=== PATIENT | male | born 1935 | race Caucasian/White ===

== ENCOUNTER 2017-06-18 01:58 | Inpatient (IN) ==
--- NOTE | 2017-06-18 03:50 | Internal Med History&Physical ---
Date of Encounter: 06/18/17 Time of Encounter: 03:49 Assessment and Plan (1) GI bleed Current visit: Yes Status: Acute history of severe sigmoid and left colon diverticulosis with prior GI bleed about a year ago on plavix, presents with symptomatic volume loss from acute significant GI bleed with Hb drop from baseline of 13.8 on 05/26/17 to 12.4 today and received emergent 1 unit of PRBC transfusion at the referring hospital due to his symptoms, will hold plavix and avoid all antiplatelets and anticoagulants, will complete current transfusion and repeat CBC, cycle CBC Q6 post transfusion, maintain 2 large bore IV lines at all times, Dr Walker has been consulted to weigh in should conservative measures fail, monitor stool count and amount, GI bleeding precautions, bed rest, monitor vitals, cycle lactate, monitor symptoms, admit to ICU for closer monitoring Qualifiers: GI bleed type/associated pathology: diverticulosis Qualified Code(s): K57.91 - Diverticulosis of intestine, part unspecified, without perforation or abscess with bleeding (2) Hyperglycemia due to type 2 diabetes mellitus Current visit: Yes Status: Acute History of type II diabetes mellitus with recent A1c of 9.3% in 04/2017, presented with hyperglycemia with the glucose of >300, on long-term insulin at home, currently NPO, FS Q6H, with sliding scale insulin for coverage, hold oral hypoglycemic Qualifiers: Diabetes mellitus director electrical engineering insulin use: with director electrical engineering use Qualified Code( s): E11.65 - Type 2 diabetes mellitus with hyperglycemia; Z79.4 - asp web developer ( current) use of insulin; Z79.4 - prison (current) use of insulin; Z79.4 - asp web developer (current) use of insulin; Z79.4 - asp web developer (current) use of insulin (3) Lactic acidosis Current visit: Yes Status: Acute lactate of 3.0, in the setting of GI bleed and hypotension, likely from poor tissue perfusion, will cycle as we resuscitate (4) JAMAL (acute kidney injury) Current visit: Yes Status: Acute His baseline creatinine is 1.3, cannot come same with the creatinine of 2.26 distracting of significant G.I. bleed with hypotension, etiology of JAMAL in this scenario is likely pre-renal, will volume resuscitate, avoid nephrotoxins, renally dose all medications and follow BMP (5) Diabetes Current visit: Yes Status: Chronic refer to hyperglycemia section Qualifiers: Diabetes mellitus type: type 2 Diabetes mellitus complication status: with circulatory complication Diabetes mellitus complication detail: with other circulatory complications Diabetes mellitus director electrical engineering insulin use: with senior care use Qualified Code(s): E11.59 - Type 2 diabetes mellitus with other circulatory complications; Z79.4 - prison (current) use of insulin (6) Diverticulosis Current visit: Yes Status: Chronic Known history of diverticulosis in the sigmoid and left colon with a prior GI bleed that self resolved, refer to GI bleed section for further assessment and plan Qualifiers: Diverticulosis site: diverticulosis of large intestine Diverticulosis bleeding: diverticulosis with bleeding Qualified Code(s): K57.31 - Diverticulosis of large intestine without perforation or abscess with bleeding (7) Chronic kidney disease (CKD) Current visit: Yes Status: Chronic History of PKD stage III, now in JAMAL, further assessment and plan per JAMAL section Qualifiers: Chronic kidney disease stage: stage 3 (moderate) Qualified Code(s): N18.3 - Chronic kidney disease, stage 3 (moderate) (8) Hypertension Current visit: Yes Status: Chronic was initially hypotensive but BP is now WNL, will hold off antihypertensives until BP stabilizes, Qualifiers: Hypertension type: essential hypertension Qualified Code(s): I10 - Essential (primary) hypertension Internal Medicine - H&P: HPI Chief complaint: bleeding per rectum Admitted From: Hospital to Hospital Transfer Plans for Post Hospital Care: Home History of present illness: Mr. Balderrama is a 82 year old male with a history of severe diverticulosis in the sigmoid and left colon with self limiting GI bleed in July 2016/CABG3 ( NOLASCO to LAD, SVG to D1, SVG to RI) and LAD endarterectomy done in July 2015 on plavix at home was transferred here form [facility] after he had presented there with recurrent bloody bowel movements. He was reportedly well in his usual state of health until after 8pm last night when he began to have spontaneous moderate to large amounts of bloody bowel movements. It was initially red but subsequently became dark in color. He reports >4 such episodes since onset. He was seen in the ER of [place] via EMS and was reportedly hypotensive-88/42mmHg, tachycardic>100, diaphoretic and was lightheaded. He was noted to have lactic acidosis of 3.0 with a drop in hemoglobin from 13.8 to 12.4. He was transferred here on 1 unit of PRBC transfusion en route for higher level or care. He denies chest pain, abdominal pain, fever, chills, nausea or vomiting. Past Med Surg Social Fam HX - Past Medical History Source: patient, old records reviewed Medical history: coronary artery disease, diabetes, GI bleed, hypertension, myocardial infarction Psychiatric history: no psych history - Past Surgical History Surgical History: angioplasty/stent (multiple ), cholecystectomy, coronary bypass (CABG) - Social History Smoking Status: Former smoker Smokeless Tobacco Status: No Alcohol use: none Drug use: none - Additional Family History Additional family history: mother had HTN, brother had DM, no family history of cancer or GI problems to his knowledge Internal Medicine - H&P: Meds GlipiZIDE XL (24 HR) [Glucotrol XL] 5 mg PO BID 08/16/15 [History] Insulin DETEMIR [Levemir] 15 unit SQ BID 08/16/15 [History] Promethazine [Phenergan] 25 mg PO BID PRN 08/16/15 [History] Acetaminophen [Tylenol] 650 mg PO Q6HR PRN #30 tablet 08/09/16 [Rx] Oxycodone HCl/Acetaminophen [Percocet 10-325 mg Tablet] 1 tab PO Q6H PRN #20 tablet 08/09/16 [Rx] Zolpidem [Ambien] 5 mg PO HS PRN #10 tablet 08/09/16 [Rx] hydroCHLOROthiazide [Hydrochlorothiazide] 12.5 mg PO DAILY #30 tablet 08/09/16 [ Rx] Clopidogrel [Plavix] 75 mg PO DAILY #30 tab 05/04/17 [Rx] Doxazosin Mesylate [Cardura] 2 mg PO HS #60 tablet 05/26/17 [Rx] Isosorbide MONOnitrate (24 HR) [Imdur] 30 mg PO DAILY #30 tab.er.24h 05/26/17 [ Rx] Nitroglycerin [Nitrostat] 0.4 mg SL Q5M #1 vial 05/26/17 [Rx] Potassium Chloride 10 meq PO DAILY #30 tab.er.prt 05/26/17 [Rx] Lisinopril [Zestril] 20 mg PO DAILY 06/18/17 [History] Metoprolol [Lopressor] 50 mg PO BID 06/18/17 [History] Ranitidine HCl [Heartburn Relief] 150 mg PO BID 06/18/17 [History] 3 Allergy/AdvReac Type Severity Reaction Status Date / Time morphine Allergy See Verified 05/03/17 07:37 Comments All Systems PM: A 10-system review of systems was performed and is negative for pertinent findings except as documented above in the HPI. - Constitutional Vitals: Vital Signs Temperature 97.6 F 06/18/17 00:44 Pulse Rate 111 06/18/17 00:44 Respiratory Rate 16 06/18/17 00:44 Blood Pressure 140/82 06/18/17 00:44 O2 Sat by Pulse Oximetry 96 06/18/17 00:44 GENERAL: Elderly male, lying in bed, Alert, not in obvious pain or distress HEENT: NC/AT, EOMI, PERRLA, anicteric sclera, normal conjunctiva, supple, clear nares, moist mucous membranes, RESP: Lungs are clear to auscultation bilaterally, with good AE, no crackles or wheeze CARDIO: Normal heart sounds with RRR, no murmurs, no JVD, no ankle edema GI: Soft, full, no tenderness, no organomegaly felt, normal bowel sounds heard MUSCULOSKELETAL: Grossly normal movements bilaterally, no deformities noted, NEUROLOGIC: CN 2-12 intact grossly. No gross motor/sensory deficit appreciated, PSYCHIATRY: AAO x 3. Mood is fair SKIN: a few areas of ecchymosis Internal Med - H&P Results - Diagnostic Studies CT scan - abdomen Status: image reviewed by me - Attending Attestation Patient has critical illness, with multiple vital organ impairment; cardiovascular, renal and endocrine with a high probability of imminent or life threatening deterioration in the patient's condition. I performed critical intervention, involving high complexity decision making to assess, manipulate, and support vital organ system failure; and I spent about 35 minutes engaged in work directly related to the patient's care at his immediate bedside and also on the unit, part of this time was also spent counseling patient, coordinating care, that time was spent at the immediate bedside or elsewhere on the floor or unit. Critical care time: 35 minutes
[2017-06-18] MEDS ORDERED: Naloxone 0.4 MG/ML INJ IVP PRN (04:08)
[2017-06-18] MEDS ORDERED: Dextrose Gel 15 GM PO PRN ×2 (04:10)
[2017-06-18] MEDS ORDERED: *HR* Dextrose 50 % in Water (Syg) 50 ML SYRINGE IVP PRN (04:10)
[2017-06-18] MEDS ORDERED: D5% in Water 1,000 ML IVC PRN (04:10)
[2017-06-18] MEDS ORDERED: *HR* OxyCODONE/APAP 10/325 TABLET PO PRN (05:15)
[2017-06-18] MEDS: Insulin LISPRO 300 UNITS/3 ML VIAL SQ SCH ×2 (05:29→12:22)
[2017-06-18 05:38] LABS: Hemoglobin 10.7 g/dL (12.9-16.9); Immature Platelets 6.9 % (1.1-6.1); Mean Corpuscular HGB Conc 33.4 g/dL (31.6-35.5); Mean Corpuscular Hemoglobin 29.4 pg (28.0-33.3); Mean Corpuscular Volume 87.9 fL (83.0-100.0); Mean Platelet Volume 11.1 fL (9.4-12.4); Red Blood Count 3.64 M/mcL (4.19-5.50); Red Cell Distribution Width 13.4 % (11.5-14.5)
[2017-06-18 05:53] LABS: Calcium 7.9 mg/dL (8.6-10.8); Magnesium 1.6 mg/dL (1.6-2.6); Phosphorous 3.6 mg/dL (2.3-4.7); Potassium 4.1 mEq/L (3.5-4.5)
[2017-06-18] MEDS ORDERED: Ondansetron 4 MG/2 ML VIAL IVP ONE (07:56)
[2017-06-18] MEDS ORDERED: Ondansetron 4 MG/2 ML VIAL IVP PRN (07:56)
[2017-06-18] MEDS ORDERED: MetroNIDAZOLE 500 MG/100 ML 500 MG/100 ML BAG IVPB SCH (09:00)
[2017-06-18] MEDS ORDERED: Pantoprazole 40 MG VIAL IVP SCH ×2 (09:00→18:00)
[2017-06-18] MEDS ORDERED: Piperacillin/Tazobactam 3.375 GM in D5% in Water (Mini-Bag+) 100 ML IVPB SCH (09:00)
[2017-06-18] MEDS ORDERED: Insulin DETEMIR 100 UNIT/ML X5UNITS SQ ONE (12:07)
[2017-06-18] MEDS ORDERED: *HR* Midazolam HCl 5 MG/5 ML VIAL IVP ONE (13:10)
[2017-06-18] MEDS ORDERED: *HR* FentaNYL (PF) 100 MCG/2 ML VIAL ONE (13:10)
[2017-06-18] MEDS ORDERED: Simethicone 40 MG/0.6 ML MLS IR ONE (13:20)
[2017-06-18] MEDS ORDERED: *HR* Midazolam HCl 5 MG/5 ML VIAL IVP PRN (13:20)
[2017-06-18] MEDS ORDERED: *HR* FentaNYL (PF) 100 MCG/2 ML VIAL IVP PRN (13:20)
--- NOTE | 2017-06-18 13:22 | Pre-Sedation Evaluation ---
Pre-sedation evaluation - Pre-sedation checklist Procedure: HEART CATHETERIZATION Recent Vitals: Last Vital Signs Temp 98 F 06/18/17 12:00 Pulse 94 06/18/17 12:00 Resp 16 06/18/17 12:00 BP 120/74 06/18/17 12:00 Pulse Ox 95 06/18/17 12:00 H&P (including ROS) documented in medical record: Yes Previous reaction to sedatives/anesthetics: No Dietary Status: NPO after Midnight Airway Assessment: Patient can open mouth completely, TMJ function normal, Micrognathia (under-bite, receding chin) absent, Neck with adequate range of motion Dentition: No loose teeth or bridges ASA Classification *see protocol: CLASS III-Severe systemic disease Plan of Care: Pt appropriate candidate for procedure/moderate/conscious sedation , Risks/benefits of procedure/sedation discussed w/ patient/family, If not NPO; Risk of intake outweiged by necessity to perform procedure
[2017-06-18] MEDS ORDERED: 0.9 % Sodium Chloride 1,000 ML IVC SCH (13:30)
[2017-06-18 13:56] LABS: Hematocrit 30.5 % (37.5-50.1); Hemoglobin 9.9 g/dL (12.9-16.9)
[2017-06-18] MEDS: MetroNIDAZOLE 500 MG/100 ML 500 MG/100 ML BAG IVPB SCH (16:50)
[2017-06-18] MEDS: Piperacillin/Tazobactam 3.375 GM in D5% in Water (Mini-Bag+) 100 ML IVPB SCH (16:50)
[2017-06-18] MEDS ORDERED: *HR* Morphine 2 MG/ML SYRINGE IVP PRN (16:57)
--- NOTE | 2017-06-18 17:00 | General Surgery Consult Note ---
Date of Encounter: 06/18/17 Time of Encounter: 07:45 History of Present Illness Consult date: 06/18/17 Requesting physician: Behzad Weems History of present illness: General Surgery - This is a delayed consultation for GI hemorrhage / anemia 82-year-old male transferred from [facility] after presenting there with new onset rectal bleeding. The patient has a known history of diverticulosis/ diverticulitis. He indicates his last GI bleed was approximately 4 years ago. The patient apparently presented to [facility] after several bloody bowel movements with dizziness and near syncope. The stool was described as dark. There was no associated rectal pain or abdominal pain with this new onset bleeding. The patient indicates the bleeding initiated approximately 0800 on . No fevers, chills, nausea, or vomiting. Past medical history: Diverticulosis, previous history of diverticulitis, diabetes, CKD, possible TIA/stroke CAD with prior MA s/p CABG; coronary stents; cholecystectomy Allergies: Morphine Medications: Glipizide 5 mg by mouth twice a day Levemir 15 units subcutaneous twice a day Promethazine 25 mg by mouth twice a day when necessary - it is not certain that the patient is taking this med Acetaminophen 650 mg by mouth every 6 hours when necessary Zolpidem 5 mg by mouth daily at bedtime as needed for sleep Hydrochlorothiazide 12.5 mg by mouth daily Clopidogrel 75 mg by mouth daily Cardura 2 mg by mouth daily at bedtime Isosorbide mononitrate 30 mg by mouth daily Nitroglycerin 0.4 mg sublingually every 5 minutes as needed for chest pain Potassium 10 mEq by mouth daily Lisinopril to 20 mg by mouth daily Metoprolol 50 mg by mouth twice a day Ranitidine 150 mg by mouth twice a day Social history: Patient is a former smoker, he indicates he quit several years ago; patient denies any alcohol or illicit drug use. Family history: Mother with hypertension; brother diabetic His examination: Age-appropriate male resting comfortably in his ICU bed. He was sleeping but easily aroused The patient has been afebrile since his transfer, 97.7; pulse 96 but as high as 104; respirations 16 and unlabored, blood pressure 122/65. The patient is 1.7 m tall, 87.5 kg, BMI 30.2 Skin: Warm, no obvious jaundice Lungs: Clear to auscultation, no obvious abdominal pain with deep inspiration Cardiac: Regular rate Abdomen: Soft, nontender; no obvious intra-abdominal masses. No rebound. Hypoactive bowel sounds. Extremities: No obvious clubbing, cyanosis, or edema. Laboratories: H&H on 05/26/17, 13.1 and 38.9; H&H and presentation to [facility] , 06/18/1712.4/36.8. Since transfer to [facility], H&H currently 9.9/30.5. PT/INR 12.6/1.2 Electrolytes within acceptable range however BUN 38, creatinine 2.26 - markedly elevated over what appears to be baseline. This may be reflective of The presence blood in the intestinal tract. CT abdomen/pelvis - completed at [facility] prior to the transfer to [facility]; the lung bases, calcified granuloma right medial right base; Collapsed bladder with appearance of thickened wall but the evaluation is limited by the collapsed bladder; prostate is enlarged; extensive colonic diverticulosis with minimal stranding pericolic fat involving the proximal sigmoid insistent with either scarring due to previous diverticulitis versus mild acute uncomplicated diverticulitis. The urinary bladder is also unremarkable with irregular thickening possibly related to chronic outlet obstruction. Impression: 82-year-old male with new onset rectal bleeding. This is been accompanied by some hemodynamic instability (patient complaining of dizziness and "almost passing out"). No recorded hemodynamic instability since his transfer to [facility]. Hemoglobin has fallen from hurting 0.1-9.9. While this is likely a diverticular bleed the bowel movements and described as dark melenic. The possibility of upper GI source and not be excluded. I discussed this with the patient and have recommended a EGD which can be easily completed at bedside since the patient is in ICU. The patient has radiologic evidence of acute diverticulitis but review of the admitting orders demonstrate no ascribed antibiotics. Plan: Initiate Zosyn and metronidazole for treatment of recurrent acute diverticulitis EGD later today. Procedure was discussed with the patient. Risks include hemorrhage, infection, aspiration, cramping abdominal pain, and perforation. Consent for the EGD Colonoscopy will be deferred for 4-6 weeks pending resolution of the patient's acute diverticulitis Thank you for this consultation. I will follow along with you. Past Med Surg Social Fam HX - Past Medical History Medical history: coronary artery disease, diabetes, GI bleed, hypertension, myocardial infarction Psychiatric history: no psych history - Past Surgical History Surgical History: angioplasty/stent (multiple ), cholecystectomy, coronary bypass (CABG) - Social History Smoking Status: Former smoker Smokeless Tobacco Status: No Alcohol use: none Drug use: none Medications and Allergies GlipiZIDE XL (24 HR) [Glucotrol XL] 5 mg PO BID 08/16/15 [History] Insulin DETEMIR [Levemir] 15 unit SQ BID 08/16/15 [History] Promethazine [Phenergan] 25 mg PO BID PRN 08/16/15 [History] Acetaminophen [Tylenol] 650 mg PO Q6HR PRN #30 tablet 08/09/16 [Rx] Clopidogrel [Plavix] 75 mg PO DAILY #30 tab 05/04/17 [Rx] Doxazosin Mesylate [Cardura] 2 mg PO HS #60 tablet 05/26/17 [Rx] Isosorbide MONOnitrate (24 HR) [Imdur] 30 mg PO DAILY #30 tab.er.24h 05/26/17 [ Rx] Nitroglycerin [Nitrostat] 0.4 mg SL Q5M #1 vial 05/26/17 [Rx] Potassium Chloride 10 meq PO DAILY #30 tab.er.prt 05/26/17 [Rx] Lisinopril [Zestril] 20 mg PO BID 06/18/17 [History] Metoprolol [Lopressor] 50 mg PO BID 06/18/17 [History] Mupirocin Calcium [Mupirocin] 1 appl TP BID 06/18/17 [History] OxyCODONE/APAP 5/325 [Percocet 5/325 MG] 1 tab PO BID PRN 06/18/17 [History] Ranitidine HCl [Heartburn Relief] 150 mg PO BID 06/18/17 [History] hydroCHLOROthiazide [Hydrochlorothiazide] 25 mg PO DAILY 06/18/17 [History] metFORMIN [Glucophage] 500 mg PO BID 06/18/17 [History] 3 Allergy/AdvReac Type Severity Reaction Status Date / Time morphine Allergy See Verified 05/03/17 07:37 Comments Review of Systems All systems PM: A 10-system review of systems was performed and is negative for pertinent findings except as documented above in the HPI. General Surgery Exam Initial Vital Signs Pulse Pulse Ox 86 95 06/18/17 04:03 06/18/17 04:03 Exam Initial Vital Signs Pulse Pulse Ox 86 95 06/18/17 04:03 06/18/17 04:03 Results - Labs 06/18/17 12:57 06/18/17 05:27 Abnormal lab results WBC 11.3 K/mcL (4.3-11.1) H 06/18/17 05:27 RBC 3.64 M/mcL (4.19-5.50) L 06/18/17 05:27 Hgb 9.9 g/dL (12.9-16.9) L 06/18/17 12:57 Hct 30.5 % (37.5-50.1) L 06/18/17 12:57 Immature Plt Fraction 6.9 % (1.1-6.1) H 06/18/17 05:27 BUN 39 mg/dL (8-26) H 06/18/17 05:27 Creatinine 1.87 mg/dL (0.72-1.25) H 06/18/17 05:27 Est GFR ( Amer) 42 (> 60) L 06/18/17 05:27 Est GFR (Non-Af Amer) 35 (> 60) L 06/18/17 05:27 Glucose 359 mg/dL (70-99) H 06/18/17 05:27 POC Glucose 286 (58-89) H 06/18/17 12:18 Calculated Osmolality 312 (280-300) H 06/18/17 05:27 Calcium 7.9 mg/dL (8.6-10.8) L 06/18/17 05:27 Diabetes panel 06/18/17 Range/Units 05:27 Sodium 139 (136-145) mEq/L Potassium 4.1 (3.5-4.5) mEq/L Chloride 109 (98-109) mEq/L Carbon Dioxide 23 (19-29) mEq/L BUN 39 H (8-26) mg/dL Creatinine 1.87 H (0.72-1.25) mg/dL Glucose 359 H (70-99) mg/dL Calcium 7.9 L (8.6-10.8) mg/dL Calcium panel 06/18/17 Range/Units 05:27 Calcium 7.9 L (8.6-10.8) mg/dL Phosphorus 3.6 (2.3-4.7) mg/dL Pituitary panel 06/18/17 Range/Units 05:27 Sodium 139 (136-145) mEq/L Potassium 4.1 (3.5-4.5) mEq/L Chloride 109 (98-109) mEq/L Carbon Dioxide 23 (19-29) mEq/L BUN 39 H (8-26) mg/dL Creatinine 1.87 H (0.72-1.25) mg/dL Glucose 359 H (70-99) mg/dL Calcium 7.9 L (8.6-10.8) mg/dL Adrenal panel 06/18/17 Range/Units 05:27 Sodium 139 (136-145) mEq/L Potassium 4.1 (3.5-4.5) mEq/L Chloride 109 (98-109) mEq/L Carbon Dioxide 23 (19-29) mEq/L BUN 39 H (8-26) mg/dL Creatinine 1.87 H (0.72-1.25) mg/dL Glucose 359 H (70-99) mg/dL Calcium 7.9 L (8.6-10.8) mg/dL All other labs normal. Consult Discharge Plan - Plan Referrals: Shelli Lobo MD [Primary Care Provider] -
[2017-06-18] MEDS: 0.9 % Sodium Chloride 1,000 ML IVC SCH (19:00)
[2017-06-18] MEDS: *HR* OxyCODONE/APAP 10/325 TABLET PO PRN (22:07)
--- NOTE | 2017-06-18 23:32 | Event Note ---
Date of Encounter: 06/18/17 Time of Encounter: 11:42 Patient seen and examined after arrival to ICU from ED. BP was stable during my evaluation. Surgery consulted, appreciate recommendations. H&H to be cycled, currently no acute drop. glucose and BP monitoring today. Stool cultures to be obtained when/if possible.
[2017-06-19] MEDS: Piperacillin/Tazobactam 3.375 GM in D5% in Water (Mini-Bag+) 100 ML IVPB SCH ×3 (01:16→16:31)
[2017-06-19] MEDS: MetroNIDAZOLE 500 MG/100 ML 500 MG/100 ML BAG IVPB SCH ×3 (01:17→16:32)
[2017-06-19 06:26] LABS: Basophils # 0.1 K/mcL (0.0-0.2); Basophils % 0.6 %; Eosinophils # 0.3 K/mcL (0.0-0.6); Eosinophils % 3.5 %; Hemoglobin 8.7 g/dL (12.9-16.9); Immature Granulocytes % 0.3 % (0-4); Lymphocytes % 22.4 %; Mean Corpuscular HGB Conc 32.2 g/dL (31.6-35.5); Mean Corpuscular Hemoglobin 29.1 pg (28.0-33.3); Mean Corpuscular Volume 90.3 fL (83.0-100.0); Mean Platelet Volume 11.3 fL (9.4-12.4); Monocytes # 0.7 K/mcL (0.0-1.3); Monocytes % 7.3 %; Platelet Count 142 K/mcL (140-400); Red Blood Count 2.99 M/mcL (4.19-5.50); Red Cell Distribution Width 13.9 % (11.5-14.5); Segmented Neutrophils % 65.9 %
[2017-06-19 06:41] LABS: Calcium 7.6 mg/dL (8.6-10.8); Potassium 3.8 mEq/L (3.5-4.5)
[2017-06-19] MEDS: Pantoprazole 40 MG VIAL IVP SCH (08:40)
[2017-06-19] MEDS: 0.9 % Sodium Chloride 1,000 ML IVC SCH (08:43)
[2017-06-19] MEDS ORDERED: D5% in Water 1,000 ML IVC PRN (12:58)
[2017-06-19] MEDS ORDERED: *HR* Dextrose 50 % in Water (Syg) 50 ML SYRINGE IVP PRN (12:58)
[2017-06-19] MEDS ORDERED: Dextrose Gel 15 GM PO PRN ×2 (12:58)
[2017-06-19] MEDS: Insulin LISPRO 300 UNITS/3 ML VIAL SQ SCH ×2 (13:37→16:31)
[2017-06-19] MEDS: *HR* OxyCODONE/APAP 10/325 TABLET PO PRN ×2 (13:38→22:00)
[2017-06-19] MEDS ORDERED: 0.9 % Sodium Chloride 1,000 ML IVC SCH (14:15)
--- NOTE | 2017-06-19 14:15 | General Surgery Progress Note ---
Date of Encounter: 06/19/17 Time of Encounter: 13:25 Subjective Patient reports: no new complaints, tolerating liquids well Narrative: General Surgery - patient voicing no complaints. Denies abd pain, no detected or noted rectal bleeding today The patient remains afebrile, currently 98.2, pulse 76, respirations 16, blood pressure 159/85. SPO2 on room air 93-95% Abdomen is soft, nontender. Bowel sounds are active. I did not elicit any tenderness in the left lower quadrant No nausea vomiting; patient tolerating clear liquids. Laboratories: White count 9.1, hemoglobin 8.7/hematocrit 27.9 (previously 10.7/ 32.0 at 05:27 and 9.9/30.5 at 12:57) Some of these changes may be due to IV fluids and "equilibration" following GI hemorrhage and subsequent transfusions. Recommendations: Advance diet to full liquids Continue monitoring for recurrent GI hemorrhage as patient tolerates diet with no recurrent GI hemorrhage - change meds to po including ATB Objective Vital Signs - Last 8 Hours Temp Pulse Resp BP Pulse Ox 06/19/17 12:20 98.2 F 76 16 159/85 95 06/19/17 07:45 98.2 F 76 16 121/71 94 Intake and Output 06/18/17 06/19/17 06/19/17 23:59 07:59 15:59 Intake Total 200 / 200 200 / 200 1050 / 1050 Output Total 0 / 0 1100 / 1100 Balance 200 / 200 -900 / -900 1050 / 1050 Intake: IV Fluids 200 / 200 200 / 200 1050 / 1050 0.9 % Sodium Chloride 1,000 ML 950 / 950 @ 75 mls/hr IVC .[id number] DANIELLE Rx #:[id number] Flagyl Premix 500 MG/100 ML 500 100 / 100 100 / 100 100 / 100 mg In 100 ml @ 100 mls/hr IVPB Q8H DANIELLE Rx#:[id number] Zosyn 3.375 GM In Dextrose 5% ( 100 / 100 100 / 100 Minibag+) 100 ML 100 ML @ 25 mls/hr IVPB Q8H DANIELLE Rx#: [id number] Oral 0 / 0 0 / 0 Output: Urine 0 / 0 1100 / 1100 Other: Stool Size Smear Stool Color Dark Red Blood Weight 85.6 kg Blood Glucose* 202 300 - Labs 06/19/17 05:43 06/19/17 05:43 Diabetes panel 06/19/17 Range/Units 05:43 Sodium 141 (136-145) mEq/L Potassium 3.8 (3.5-4.5) mEq/L Chloride 111 H (98-109) mEq/L Carbon Dioxide 24 (19-29) mEq/L BUN 38 H (8-26) mg/dL Creatinine 1.77 H (0.72-1.25) mg/dL Glucose 193 H (70-99) mg/dL Calcium 7.6 L (8.6-10.8) mg/dL Calcium panel 06/19/17 Range/Units 05:43 Calcium 7.6 L (8.6-10.8) mg/dL Pituitary panel 06/19/17 Range/Units 05:43 Sodium 141 (136-145) mEq/L Potassium 3.8 (3.5-4.5) mEq/L Chloride 111 H (98-109) mEq/L Carbon Dioxide 24 (19-29) mEq/L BUN 38 H (8-26) mg/dL Creatinine 1.77 H (0.72-1.25) mg/dL Glucose 193 H (70-99) mg/dL Calcium 7.6 L (8.6-10.8) mg/dL Adrenal panel 06/19/17 Range/Units 05:43 Sodium 141 (136-145) mEq/L Potassium 3.8 (3.5-4.5) mEq/L Chloride 111 H (98-109) mEq/L Carbon Dioxide 24 (19-29) mEq/L BUN 38 H (8-26) mg/dL Creatinine 1.77 H (0.72-1.25) mg/dL Glucose 193 H (70-99) mg/dL Calcium 7.6 L (8.6-10.8) mg/dL - VTE Documentation of Mechanical Device: Graduated compression elastic hosiery Consult Discharge Plan - Plan Referrals: Shelli Lobo MD [Primary Care Provider] - 06/30/17 1:30 pm
[2017-06-19] MEDS ORDERED: Insulin DETEMIR 100 UNIT/ML X5UNITS SQ SCH (21:00)
[2017-06-19] MEDS ORDERED: Insulin LISPRO 300 UNITS/3 ML VIAL SQ SCH (21:00)
--- NOTE | 2017-06-19 22:48 | Internal Med Progress Note ---
Date of Encounter: 06/19/17 Time of Encounter: 15:30 - Assessment and plan (1) Acute GI bleeding Current Visit: No Status: Acute Assessment and plan: GI following (2) JAMAL (acute kidney injury) Current Visit: Yes Status: Acute Assessment and plan: Resolved currently renal function at baseline. (3) CAD (coronary artery disease), [place] coronary artery Current Visit: No Status: Chronic Qualifiers: Council vs. transplanted heart: [place] heart Associated angina: with unspecified angina Qualified Code(s): I25.119 - Atherosclerotic heart disease of [place] coronary artery with unspecified angina pectoris (4) CHF (congestive heart failure) Current Visit: No Status: Chronic Qualifiers: Congestive heart failure type: diastolic Congestive heart failure chronicity: acute Qualified Code(s): I50.31 - Acute diastolic (congestive) heart failure (5) Chronic kidney disease (CKD) Current Visit: Yes Status: Chronic Qualifiers: Chronic kidney disease stage: stage 3 (moderate) Qualified Code(s): N18.3 - Chronic kidney disease, stage 3 (moderate) (6) Hyperglycemia due to type 2 diabetes mellitus Current Visit: Yes Status: Acute Assessment and plan: Basal insulin added. Qualifiers: Diabetes mellitus retirement insulin use: with superintendent container terminal use Qualified Code( s): E11.65 - Type 2 diabetes mellitus with hyperglycemia; Z79.4 - terminal system operator ( current) use of insulin; Z79.4 - terminal system operator (current) use of insulin; Z79.4 - penitentiary (current) use of insulin; Z79.4 - penitentiary (current) use of insulin - Subjective Interval history: No acute events, no complaints. Had two bowel movements described as dark but without blood in appearance. Denies abdominal pain, n/v, diarrhea. Appetite is good. - Constitutional Vitals: Temp Pulse Resp BP Pulse Ox 98.2 F 86 18 167/71 96 06/19/17 21:45 06/19/17 21:45 06/19/17 21:45 06/19/17 21:45 06/19/17 21:45 Exam: Gen: NAD CVS: RRR Lungs: CTAB Abd; Soft, NT/ND, normoactive bowel sounds in all quadrants. Ext: no edema Internal Medicine: Result - Labs CBC & Chem 7: 06/19/17 05:43 06/19/17 05:43 Labs: Short CBC 06/19/17 Range/Units 05:43 WBC 9.1 (4.3-11.1) K/mcL Hgb 8.7 L (12.9-16.9) g/dL Hct 27.0 L (37.5-50.1) % Plt Count 142 (140-400) K/mcL Neutrophils # 6.0 (1.6-8.9) K/mcL BMP 06/19/17 05:43 Sodium 141 Potassium 3.8 Chloride 111 H Carbon Dioxide 24 BUN 38 H Creatinine 1.77 H Glucose 193 H Calcium 7.6 L - VTE Documentation of Mechanical Device: Graduated compression elastic hosiery Consult Discharge Plan - Plan Referrals: Shelli Lobo MD [Primary Care Provider] - 06/30/17 1:30 pm
[2017-06-20] MEDS: Piperacillin/Tazobactam 3.375 GM in D5% in Water (Mini-Bag+) 100 ML IVPB SCH ×3 (01:08→15:59)
[2017-06-20] MEDS: MetroNIDAZOLE 500 MG/100 ML 500 MG/100 ML BAG IVPB SCH ×3 (01:09→15:58)
[2017-06-20] MEDS: Ondansetron 4 MG/2 ML VIAL IVP PRN (01:22)
[2017-06-20] MEDS: *HR* Promethazine 25 MG/ML VIAL IVP PRN (02:40)
[2017-06-20 04:57] LABS: BUN/Creatinine Ratio 16 (6-26); Calcium 7.7 mg/dL (8.6-10.8); Carbon Dioxide 23 mEq/L (19-29); Chloride 109 mEq/L (98-109); Glucose 215 mg/dL (70-99); Osmolality,Calculated 295 (280-300); Potassium 3.8 mEq/L (3.5-4.5); Sodium 138 mEq/L (136-145); eGFR For African Americans > 60 (> 60); eGFR For Non-African Americans 51 (> 60)
[2017-06-20 05:02] LABS: Blood Urea Nitrogen 21 mg/dL (8-26)
[2017-06-20 05:33] LABS: Basophils % 0.4 %; Eosinophils # 0.2 K/mcL (0.0-0.6); Eosinophils % 2.2 %; Hematocrit 27.6 % (37.5-50.1); Hemoglobin 8.7 g/dL (12.9-16.9); Immature Granulocytes % 0.3 % (0-4); Lymphocytes # 0.9 K/mcL (0.6-4.6); Lymphocytes % 9.8 %; Mean Corpuscular HGB Conc 31.5 g/dL (31.6-35.5); Mean Platelet Volume 11.6 fL (9.4-12.4); Monocytes # 0.5 K/mcL (0.0-1.3); Monocytes % 5.7 %; Neutrophils # 7.5 K/mcL (1.6-8.9); Platelet Count 137 K/mcL (140-400); Segmented Neutrophils % 81.6 %
[2017-06-20] MEDS: Insulin LISPRO 300 UNITS/3 ML VIAL SQ SCH ×5 (08:09→21:53)
[2017-06-20] MEDS: Pantoprazole 40 MG VIAL IVP SCH (08:09)
[2017-06-20] MEDS: *HR* OxyCODONE/APAP 10/325 TABLET PO PRN ×2 (11:58→21:40)
[2017-06-20] MEDS: Insulin DETEMIR 100 UNIT/ML X5UNITS SQ SCH (21:51)
[2017-06-21] MEDS: Piperacillin/Tazobactam 3.375 GM in D5% in Water (Mini-Bag+) 100 ML IVPB SCH ×3 (00:29→17:38)
[2017-06-21] MEDS: MetroNIDAZOLE 500 MG/100 ML 500 MG/100 ML BAG IVPB SCH ×3 (00:29→17:37)
[2017-06-21 04:30] LABS: BUN/Creatinine Ratio 12 (6-26); Blood Urea Nitrogen 15 mg/dL (8-26); Calcium 7.8 mg/dL (8.6-10.8); Carbon Dioxide 21 mEq/L (19-29); Chloride 110 mEq/L (98-109); Glucose 131 mg/dL (70-99); Osmolality,Calculated 287 (280-300); Potassium 3.6 mEq/L (3.5-4.5); Sodium 137 mEq/L (136-145); eGFR For African Americans > 60 (> 60); eGFR For Non-African Americans 55 (> 60)
[2017-06-21 05:25] LABS: Basophils % 0.4 %; Eosinophils # 0.3 K/mcL (0.0-0.6); Eosinophils % 4.2 %; Hematocrit 23.6 % (37.5-50.1); Hemoglobin 7.6 g/dL (12.9-16.9); Immature Granulocytes % 0.3 % (0-4); Immature Platelets 7.1 % (1.1-6.1); Lymphocytes # 1.8 K/mcL (0.6-4.6); Lymphocytes % 24.2 %; Mean Corpuscular HGB Conc 32.2 g/dL (31.6-35.5); Mean Corpuscular Hemoglobin 28.4 pg (28.0-33.3); Mean Corpuscular Volume 88.1 fL (83.0-100.0); Mean Platelet Volume 11.8 fL (9.4-12.4); Monocytes # 0.6 K/mcL (0.0-1.3); Monocytes % 7.7 %; Neutrophils # 4.7 K/mcL (1.6-8.9); Platelet Count 130 K/mcL (140-400); Red Blood Count 2.68 M/mcL (4.19-5.50); Red Cell Distribution Width 13.9 % (11.5-14.5); Segmented Neutrophils % 63.2 %
[2017-06-21] MEDS: Insulin LISPRO 300 UNITS/3 ML VIAL SQ SCH ×5 (09:14→22:55)
[2017-06-21] MEDS: *HR* OxyCODONE/APAP 10/325 TABLET PO PRN ×2 (09:27→22:54)
[2017-06-21] MEDS: Pantoprazole 40 MG VIAL IVP SCH (11:09)
[2017-06-21] MEDS: Ondansetron 4 MG/2 ML VIAL IVP PRN (11:12)
[2017-06-21 14:57] LABS: Hematocrit 22.3 % (37.5-50.1); Hemoglobin 7.3 g/dL (12.9-16.9)
--- NOTE | 2017-06-21 15:04 | General Surgery Consult Note ---
Date of Encounter: 06/21/17 Time of Encounter: 14:54 History of Present Illness Consult date: 06/21/17 Requesting physician: Ruthann Donnelly History of present illness: General Surgery / GI coverage follow up rectal bleeding / anemia the patient is a poor historian but describes "two drops blood" per rectum last evening. Nursing reports blood on bed padding/chucks and bright red blood in the commode. Cannot quantitate the amount of blood passed thru the night. ?Clots ? voluminous? However, H&H have fallen to 7.3/22.3. The patient denies abdominal pain. No noted dizziness or hypotension. Current vital signs: Patient is afebrile, 97.8, pulse 76, respirations 16, blood pressure 161/94 Patient is extremely pale. No obvious jaundice Lungs: clear Abdomen: Soft, nontender CT completed at [facility] prior to the transfer to this facility demonstrated extensive colonic diverticulosis with minimal stranding pericolic fat proximal sigmoid colon. Impression: Progressive anemia consistent with diverticular hemorrhage Recommendations transfuse RBC tagged bleeding scan Past Med Surg Social Fam HX - Past Medical History Medical history: coronary artery disease, diabetes, GI bleed, hypertension, myocardial infarction Psychiatric history: no psych history - Past Surgical History Surgical History: angioplasty/stent (multiple ), cholecystectomy, coronary bypass (CABG) - Social History Smoking Status: Former smoker Smokeless Tobacco Status: No Alcohol use: none Drug use: none Medications and Allergies GlipiZIDE XL (24 HR) [Glucotrol XL] 5 mg PO BID 08/16/15 [History] Insulin DETEMIR [Levemir] 15 unit SQ BID 08/16/15 [History] Promethazine [Phenergan] 25 mg PO BID PRN 08/16/15 [History] Acetaminophen [Tylenol] 650 mg PO Q6HR PRN #30 tablet 08/09/16 [Rx] Clopidogrel [Plavix] 75 mg PO DAILY #30 tab 05/04/17 [Rx] Doxazosin Mesylate [Cardura] 2 mg PO HS #60 tablet 05/26/17 [Rx] Isosorbide MONOnitrate (24 HR) [Imdur] 30 mg PO DAILY #30 tab.er.24h 05/26/17 [ Rx] Nitroglycerin [Nitrostat] 0.4 mg SL Q5M #1 vial 05/26/17 [Rx] Potassium Chloride 10 meq PO DAILY #30 tab.er.prt 05/26/17 [Rx] Lisinopril [Zestril] 20 mg PO BID 06/18/17 [History] Metoprolol [Lopressor] 50 mg PO BID 06/18/17 [History] Mupirocin Calcium [Mupirocin] 1 appl TP BID 06/18/17 [History] OxyCODONE/APAP 5/325 [Percocet 5/325 MG] 1 tab PO BID PRN 06/18/17 [History] Ranitidine HCl [Heartburn Relief] 150 mg PO BID 06/18/17 [History] hydroCHLOROthiazide [Hydrochlorothiazide] 25 mg PO DAILY 06/18/17 [History] metFORMIN [Glucophage] 500 mg PO BID 06/18/17 [History] 3 Allergy/AdvReac Type Severity Reaction Status Date / Time morphine Allergy See Verified 05/03/17 07:37 Comments Review of Systems All systems PM: A 10-system review of systems was performed and is negative for pertinent findings except as documented above in the HPI. General Surgery Exam Initial Vital Signs Pulse Pulse Ox 86 95 06/18/17 04:03 06/18/17 04:03 Exam Initial Vital Signs Pulse Pulse Ox 86 95 06/18/17 04:03 06/18/17 04:03 Results - Labs 06/21/17 05:13 06/21/17 03:26 Abnormal lab results RBC 2.68 M/mcL (4.19-5.50) L 06/21/17 05:13 Hgb 7.6 g/dL (12.9-16.9) L 06/21/17 05:13 Hct 23.6 % (37.5-50.1) L 06/21/17 05:13 Plt Count 130 K/mcL (140-400) L 06/21/17 05:13 Immature Plt Fraction 7.1 % (1.1-6.1) H 06/21/17 05:13 Chloride 110 mEq/L (98-109) H 06/21/17 03:26 Creatinine 1.26 mg/dL (0.72-1.25) H 06/21/17 03:26 Est GFR (Non-Af Amer) 55 (> 60) L 06/21/17 03:26 Glucose 131 mg/dL (70-99) H 06/21/17 03:26 POC Glucose 225 (58-89) H 06/21/17 11:23 Calcium 7.8 mg/dL (8.6-10.8) L 06/21/17 03:26 Diabetes panel 06/21/17 Range/Units 03:26 Sodium 137 (136-145) mEq/L Potassium 3.6 (3.5-4.5) mEq/L Chloride 110 H (98-109) mEq/L Carbon Dioxide 21 (19-29) mEq/L BUN 15 (8-26) mg/dL Creatinine 1.26 H (0.72-1.25) mg/dL Glucose 131 H (70-99) mg/dL Calcium 7.8 L (8.6-10.8) mg/dL Calcium panel 06/21/17 Range/Units 03:26 Calcium 7.8 L (8.6-10.8) mg/dL Pituitary panel 06/21/17 Range/Units 03:26 Sodium 137 (136-145) mEq/L Potassium 3.6 (3.5-4.5) mEq/L Chloride 110 H (98-109) mEq/L Carbon Dioxide 21 (19-29) mEq/L BUN 15 (8-26) mg/dL Creatinine 1.26 H (0.72-1.25) mg/dL Glucose 131 H (70-99) mg/dL Calcium 7.8 L (8.6-10.8) mg/dL Adrenal panel 06/21/17 Range/Units 03:26 Sodium 137 (136-145) mEq/L Potassium 3.6 (3.5-4.5) mEq/L Chloride 110 H (98-109) mEq/L Carbon Dioxide 21 (19-29) mEq/L BUN 15 (8-26) mg/dL Creatinine 1.26 H (0.72-1.25) mg/dL Glucose 131 H (70-99) mg/dL Calcium 7.8 L (8.6-10.8) mg/dL All other labs normal. Consult Discharge Plan - Plan Referrals: Shelli Lobo MD [Primary Care Provider] - 06/30/17 1:30 pm
[2017-06-21] MEDS: Insulin DETEMIR 100 UNIT/ML X5UNITS SQ SCH (22:54)
[2017-06-21] MEDS ORDERED: 0.9 % Sodium Chloride 250 ML ONE (23:09)
--- NOTE | 2017-06-21 23:59 | Internal Med Progress Note ---
Date of Encounter: 06/20/17 Time of Encounter: 16:02 - Assessment and plan (1) Acute GI bleeding Current Visit: No Status: Acute Assessment and plan: Stable (2) JAMAL (acute kidney injury) Current Visit: Yes Status: Acute Assessment and plan: Resolved currently renal function at baseline. (3) CAD (coronary artery disease), [place] coronary artery Current Visit: No Status: Chronic Qualifiers: [place] vs. transplanted heart: [place] heart Associated angina: with unspecified angina Qualified Code(s): I25.119 - Atherosclerotic heart disease of [place] coronary artery with unspecified angina pectoris (4) CHF (congestive heart failure) Current Visit: No Status: Chronic Qualifiers: Congestive heart failure type: diastolic Congestive heart failure chronicity: acute Qualified Code(s): I50.31 - Acute diastolic (congestive) heart failure (5) Chronic kidney disease (CKD) Current Visit: Yes Status: Chronic Qualifiers: Chronic kidney disease stage: stage 3 (moderate) Qualified Code(s): N18.3 - Chronic kidney disease, stage 3 (moderate) (6) Hyperglycemia due to type 2 diabetes mellitus Current Visit: Yes Status: Acute Qualifiers: Diabetes mellitus longwall machine operator helper insulin use: with longwall machine operator helper use Qualified Code( s): E11.65 - Type 2 diabetes mellitus with hyperglycemia; Z79.4 - oil heaterman ( current) use of insulin; Z79.4 - oil heaterman (current) use of insulin; Z79.4 - oil heaterman (current) use of insulin; Z79.4 - FPC (current) use of insulin - Subjective Interval history: No acute events, no complaints. Denies abdominal pain, n/v, diarrhea. Appetite is good. - Constitutional Vitals: Temp Pulse Resp BP Pulse Ox 98.5 F 81 16 186/85 95 06/21/17 23:45 06/21/17 23:30 06/21/17 23:45 06/21/17 23:30 06/21/17 23:45 Exam: NAD, AAOx3 RRR Lungs CTAB Ext: no cyanosis, no edema skin: warm, dry Internal Medicine: Result - Labs CBC & Chem 7: 06/21/17 14:50 06/21/17 03:26 Labs: Short CBC 06/21/17 06/21/17 Range/Units 05:13 14:50 WBC 7.4 (4.3-11.1) K/mcL Hgb 7.6 L 7.3 L (12.9-16.9) g/dL Hct 23.6 L 22.3 L (37.5-50.1) % Plt Count 130 L (140-400) K/mcL Neutrophils # 4.7 (1.6-8.9) K/mcL BMP 06/21/17 03:26 Sodium 137 Potassium 3.6 Chloride 110 H Carbon Dioxide 21 BUN 15 Creatinine 1.26 H Glucose 131 H Calcium 7.8 L - VTE Documentation of Mechanical Device: Intermittent pneumatic compression device Consult Discharge Plan - Plan Referrals: Shelli Lobo MD [Primary Care Provider] - 06/30/17 1:30 pm
--- NOTE | 2017-06-22 00:03 | Internal Med Progress Note ---
Date of Encounter: 06/22/17 Time of Encounter: 09:46 - Assessment and plan (1) Acute GI bleeding Current Visit: No Status: Acute Assessment and plan: This AM patient states he had bloody BM and nursing reports it overnight as well. Fluids were off yesterday but patient had drop in Hgb this AM. Was 8.7 yesterday now 7.6. He is asymptomatic and he is not hypotensive or tachycardic. Will repeat H/H at noon. Transfuse if needed. (2) JAMAL (acute kidney injury) Current Visit: Yes Status: Acute Assessment and plan: Resolved currently renal function at baseline. (3) CAD (coronary artery disease), [place] coronary artery Current Visit: No Status: Chronic Qualifiers: [place] vs. transplanted heart: [place] heart Associated angina: with unspecified angina Qualified Code(s): I25.119 - Atherosclerotic heart disease of [place] coronary artery with unspecified angina pectoris (4) CHF (congestive heart failure) Current Visit: No Status: Chronic Qualifiers: Congestive heart failure type: diastolic Congestive heart failure chronicity: acute Qualified Code(s): I50.31 - Acute diastolic (congestive) heart failure (5) Chronic kidney disease (CKD) Current Visit: Yes Status: Chronic Qualifiers: Chronic kidney disease stage: stage 3 (moderate) Qualified Code(s): N18.3 - Chronic kidney disease, stage 3 (moderate) (6) Hyperglycemia due to type 2 diabetes mellitus Current Visit: Yes Status: Acute Qualifiers: Diabetes mellitus terminal worker insulin use: with halfway use Qualified Code( s): E11.65 - Type 2 diabetes mellitus with hyperglycemia; Z79.4 - computer terminal operator ( current) use of insulin; Z79.4 - computer terminal operator (current) use of insulin; Z79.4 - computer terminal operator (current) use of insulin; Z79.4 - skilled nursing (current) use of insulin - Subjective Interval history: Nursing overnight reported that he had two episodes of BRBPR. He states he had another BM that was only blood and no stool. He flushed toilet and nursing was not able to see it. He denies CP, SOB, dizziness. - Constitutional Vitals: Temp Pulse Resp BP Pulse Ox 98.5 F 81 16 186/85 95 06/21/17 23:45 06/21/17 23:30 06/21/17 23:45 06/21/17 23:30 06/21/17 23:45 Exam: Gen: NAD, AAOx3 Lungs: CTAB CVS: RRR Abd: nt/nd Ext: no edema Internal Medicine: Result - Labs CBC & Chem 7: 06/21/17 14:50 06/21/17 03:26 Labs: Short CBC 06/21/17 06/21/17 Range/Units 05:13 14:50 WBC 7.4 (4.3-11.1) K/mcL Hgb 7.6 L 7.3 L (12.9-16.9) g/dL Hct 23.6 L 22.3 L (37.5-50.1) % Plt Count 130 L (140-400) K/mcL Neutrophils # 4.7 (1.6-8.9) K/mcL BMP 06/21/17 03:26 Sodium 137 Potassium 3.6 Chloride 110 H Carbon Dioxide 21 BUN 15 Creatinine 1.26 H Glucose 131 H Calcium 7.8 L - VTE Documentation of Mechanical Device: Intermittent pneumatic compression device Consult Discharge Plan - Plan Referrals: Shelli Lobo MD [Primary Care Provider] - 06/30/17 1:30 pm
[2017-06-22] MEDS: Piperacillin/Tazobactam 3.375 GM in D5% in Water (Mini-Bag+) 100 ML IVPB SCH ×3 (02:02→17:10)
[2017-06-22] MEDS: MetroNIDAZOLE 500 MG/100 ML 500 MG/100 ML BAG IVPB SCH ×3 (02:02→17:14)
[2017-06-22] MEDS ORDERED: 0.9 % Sodium Chloride 250 ML ONE (03:57)
[2017-06-22] MEDS: Insulin LISPRO 300 UNITS/3 ML VIAL SQ SCH ×4 (08:15→20:29)
[2017-06-22] MEDS: Pantoprazole 40 MG VIAL IVP SCH (08:16)
[2017-06-22] MEDS: *HR* OxyCODONE/APAP 10/325 TABLET PO PRN ×2 (11:39→20:27)
--- NOTE | 2017-06-22 13:41 | General Surgery Progress Note ---
Date of Encounter: 06/22/17 Time of Encounter: 12:15 Subjective Patient reports: no new complaints Narrative: General Surgery / GI coverage Patient resting comfortably, denies any abdominal pain. He also denies any further rectal bleeding. H&H not repeated posttransfusion , however, patient no longer pale. Patient indicates he feels better. The patient remains afebrile, currently 98.6, pulse 80, respirations 18, blood pressure stable at 149/77. Lungs: Clear Abdomen: Soft nontender Extremities: 1+ edema evident in both hands Impression: Known history of extensive diverticulosis - acute blood loss anemia most likely due to lower GI bleed consistent with diverticular etiology Radiologic evidence (CT) diverticulitis proximal sigmoid colon. Recommendations: Continue serial abdominal exams as well as H&H is If suspected recurrent GI bleed, RBC tagged bleeding scan should be considered for potential identification and percutaneous embolization per Interventional Radiology Objective Vital Signs - Last 8 Hours Temp Pulse Resp BP Pulse Ox 06/22/17 11:21 98.6 F 80 18 149/77 98 06/22/17 08:08 97.8 F 78 16 152/75 97 Intake and Output 06/21/17 06/22/17 06/22/17 23:59 07:59 15:59 Intake Total 600 / 600 1000 / 1000 940 / 940 Output Total 600 / 600 350 / 350 0 / 0 Balance 0 / 0 650 / 650 940 / 940 Intake: IV Fluids 100 / 100 200 / 200 Flagyl Premix 500 MG/100 ML 500 100 / 100 100 / 100 mg In 100 ml @ 100 mls/hr IVPB Q8H DANIELLE Rx#:[id number] Zosyn 3.375 GM In Dextrose 5% ( 100 / 100 Minibag+) 100 ML 100 ML @ 25 mls/hr IVPB Q8H DANIELLE Rx#: [id number] Oral 0 / 0 0 / 0 240 / 240 Blood Product 500 / 500 1000 / 1000 500 / 500 Rbcs [place] Poor As-1 Unit 500 / 500 500 / 500 [id number] Rbcs [place]uk[place] Poor As-3 2nd Unit 500 / 500 500 / 500 [id number] Output: Urine 600 / 600 350 / 350 0 / 0 Other: Meal Breakfast Percent of Meal Consumed 50% Stool Size Small Stool Consistency loose liquid Stool Color Dark Red Blood # Bowel Movements 1 Weight 87.2 kg Blood Glucose* 202 144 218 Patient Weight 06/22/17 23:59 Weight 87.2 kg - Labs 06/21/17 14:50 06/21/17 03:26 - VTE Documentation of Mechanical Device: Intermittent pneumatic compression device Consult Discharge Plan - Plan Referrals: Shelli Lobo MD [Primary Care Provider] - 06/30/17 1:30 pm
--- NOTE | 2017-06-22 18:09 | Internal Med Progress Note ---
Date of Encounter: 06/22/17 Time of Encounter: 18:05 - Assessment and plan (1) Acute GI bleeding Current Visit: No Status: Acute Assessment and plan: Acute GI bleed: He did not have any bright red blood per rectum today, as he did have 3 episodes yesterday. CBC is pending, last hemoglobin was 7.3 Will change CBC 2 stat and transfuse if needed. He is currently asymptomatic and hemodynamically stable. Recurrent Diverticulitis: Continue Zosyn and Flagyl. He does not show any signs of sepsis, and he is afebrile. A follow-up CBC with differential to monitor for any signs of acute infection. Type 2 diabetes with hyperglycemia: He has been advancing his diet. Currently on a full liquid diet. He is getting hyperglycemic with sugars in the 200s. He is on Levemir 18 at night. I will hold off on going back to his home dose of Levemir 15 units twice a day, his appetite tends to fluctuate. We will continue Levemir 18 units at night, and change full liquid diet to a diabetic full liquid diet. Hypertension: Patient was hemodynamically unstable with initial presentation to the hospital. Blood pressure has now remained elevated for the past few days. However since he does continue to bleed as of yesterday, her now we will continue hydralazine as needed for systolic blood pressure greater than 160 or diastolic blood pressure greater than 110, but to be held if heart rate is greater than 95 Blood pressure continues to be elevated and patient does not need transfused tonight we will consider increasing the dose of lisinopril (2) JAMAL (acute kidney injury) Current Visit: Yes Status: Acute (3) CAD (coronary artery disease), [place] coronary artery Current Visit: No Status: Chronic Qualifiers: [place] vs. transplanted heart: [place] heart Associated angina: with unspecified angina Qualified Code(s): I25.119 - Atherosclerotic heart disease of [place] coronary artery with unspecified angina pectoris (4) CHF (congestive heart failure) Current Visit: No Status: Chronic Qualifiers: Congestive heart failure type: diastolic Congestive heart failure chronicity: acute Qualified Code(s): I50.31 - Acute diastolic (congestive) heart failure (5) Chronic kidney disease (CKD) Current Visit: Yes Status: Chronic Qualifiers: Chronic kidney disease stage: stage 3 (moderate) Qualified Code(s): N18.3 - Chronic kidney disease, stage 3 (moderate) (6) Hyperglycemia due to type 2 diabetes mellitus Current Visit: Yes Status: Acute Qualifiers: Diabetes mellitus superintendent terminal insulin use: with long-term use Qualified Code( s): E11.65 - Type 2 diabetes mellitus with hyperglycemia; Z79.4 - ad terminal makeup operator ( current) use of insulin; Z79.4 - ad terminal makeup operator (current) use of insulin; Z79.4 - ad terminal makeup operator (current) use of insulin; Z79.4 - retirement (current) use of insulin - Subjective Interval history: 06/21 had 3 episodes of BRBPR, he was asymptomatic then. Patient stated he hasn't had any bleeds since then. CBC and BMP from today pending. - Constitutional Vitals: Temp Pulse Resp BP Pulse Ox 98.0 F 81 18 157/71 96 06/22/17 16:40 06/22/17 16:40 06/22/17 16:40 06/22/17 16:40 06/22/17 16:40 Exam: Gen: NAD, AAOx3 Lungs: CTAB CVS: RRR Abd: nt/nd Ext: no edema Internal Medicine: Result - Labs CBC & Chem 7: 06/21/17 14:50 06/21/17 03:26 - VTE Documentation of Mechanical Device: Intermittent pneumatic compression device Consult Discharge Plan - Plan Referrals: Shelli Lobo MD [Primary Care Provider] - 06/30/17 1:30 pm
[2017-06-22 18:40] LABS: Basophils # 0.1 K/mcL (0.0-0.2); Basophils % 0.6 %; Eosinophils # 0.3 K/mcL (0.0-0.6); Eosinophils % 3.2 %; Immature Granulocytes % 0.7 % (0-4); Lymphocytes % 22.4 %; Mean Corpuscular HGB Conc 33.9 g/dL (31.6-35.5); Mean Corpuscular Volume 88.3 fL (83.0-100.0); Mean Platelet Volume 11.6 fL (9.4-12.4); Monocytes # 0.6 K/mcL (0.0-1.3); Monocytes % 6.8 %; Neutrophils # 5.9 K/mcL (1.6-8.9); Platelet Count 139 K/mcL (140-400); Red Blood Count 3.17 M/mcL (4.19-5.50); Red Cell Distribution Width 14.6 % (11.5-14.5); Segmented Neutrophils % 66.3 %
[2017-06-22 18:41] LABS: Hemoglobin 9.5 g/dL (12.9-16.9)
[2017-06-22 18:54] LABS: Calcium 8.1 mg/dL (8.6-10.8); Potassium 4.1 mEq/L (3.5-4.5)
[2017-06-22] MEDS: Insulin DETEMIR 100 UNIT/ML X5UNITS SQ SCH (20:27)
[2017-06-22] MEDS: *HR* Promethazine 25 MG/ML VIAL IVP PRN (21:05)
[2017-06-23] MEDS: Piperacillin/Tazobactam 3.375 GM in D5% in Water (Mini-Bag+) 100 ML IVPB SCH ×3 (00:52→18:14)
[2017-06-23] MEDS: MetroNIDAZOLE 500 MG/100 ML 500 MG/100 ML BAG IVPB SCH ×3 (00:57→16:57)
[2017-06-23 05:10] LABS: Basophils % 0.3 %; Eosinophils # 0.3 K/mcL (0.0-0.6); Eosinophils % 2.4 %; Hematocrit 28.7 % (37.5-50.1); Hemoglobin 9.5 g/dL (12.9-16.9); Immature Granulocytes % 0.5 % (0-4); Lymphocytes # 1.4 K/mcL (0.6-4.6); Lymphocytes % 12.8 %; Mean Corpuscular HGB Conc 33.1 g/dL (31.6-35.5); Mean Corpuscular Hemoglobin 29.8 pg (28.0-33.3); Mean Platelet Volume 11.8 fL (9.4-12.4); Monocytes # 0.8 K/mcL (0.0-1.3); Monocytes % 7.3 %; Neutrophils # 8.5 K/mcL (1.6-8.9); Platelet Count 160 K/mcL (140-400); Red Blood Count 3.19 M/mcL (4.19-5.50); Red Cell Distribution Width 14.7 % (11.5-14.5); Segmented Neutrophils % 76.7 %
[2017-06-23 05:21] LABS: Calcium 8.1 mg/dL (8.6-10.8); Potassium 3.8 mEq/L (3.5-4.5)
[2017-06-23] MEDS: Ondansetron 4 MG/2 ML VIAL IVP PRN (07:53)
[2017-06-23] MEDS: Pantoprazole 40 MG VIAL IVP SCH (08:07)
[2017-06-23] MEDS: Insulin LISPRO 300 UNITS/3 ML VIAL SQ SCH ×4 (08:17→20:53)
[2017-06-23] MEDS ORDERED: *HR* LORazepam 2 MG/ML VIAL IVP ONE (08:51)
[2017-06-23] MEDS ORDERED: Water for inj. (sterile) 10 ML IV ONE (09:35)
[2017-06-23] MEDS: *HR* OxyCODONE/APAP 10/325 TABLET PO PRN (18:21)
--- NOTE | 2017-06-23 20:02 | Internal Med Progress Note ---
Date of Encounter: 06/23/17 Time of Encounter: 09:58 - Assessment and plan (1) Acute GI bleeding Current Visit: No Status: Acute Assessment and plan: Acute GI bleed: Surgery following, recs appreciated. He did not have any bright red blood per rectum since 06/21, he has required 2 units PRBC to date. Follow-up H&H and transfuse as needed. Recurrent Diverticulitis: Continue Zosyn and Flagyl. He does not show any signs of sepsis, and he is afebrile. A follow-up CBC with differential to monitor for any signs of acute infection. Type 2 diabetes with hyperglycemia: He has been advancing his diet. Currently on a full liquid diet. He is getting hyperglycemic with sugars in the 200s. He is on Levemir 18 at night. I will hold off on going back to his home dose of Levemir 15 units twice a day, his appetite tends to fluctuate. We will continue Levemir 18 units at night, and change full liquid diet to a diabetic full liquid diet. Hypertension: Patient was hemodynamically unstable with initial presentation to the hospital. Blood pressure has now remained elevated for the past few days. However since he does continue to bleed as of yesterday, her now we will continue hydralazine as needed for systolic blood pressure greater than 160 or diastolic blood pressure greater than 110, but to be held if heart rate is greater than 95 Blood pressure continues to be elevated and patient does not need transfused tonight we will consider increasing the dose of lisinopril (2) JAMAL (acute kidney injury) Current Visit: Yes Status: Acute Assessment and plan: Resolved currently renal function at baseline. (3) CAD (coronary artery disease), [place] coronary artery Current Visit: No Status: Chronic Qualifiers: [place] vs. transplanted heart: [place] heart Associated angina: with unspecified angina Qualified Code(s): I25.119 - Atherosclerotic heart disease of [place] coronary artery with unspecified angina pectoris (4) CHF (congestive heart failure) Current Visit: No Status: Chronic Qualifiers: Congestive heart failure type: diastolic Congestive heart failure chronicity: acute Qualified Code(s): I50.31 - Acute diastolic (congestive) heart failure (5) Chronic kidney disease (CKD) Current Visit: Yes Status: Chronic Qualifiers: Chronic kidney disease stage: stage 3 (moderate) Qualified Code(s): N18.3 - Chronic kidney disease, stage 3 (moderate) (6) Hyperglycemia due to type 2 diabetes mellitus Current Visit: Yes Status: Acute Assessment and plan: Basal insulin added nightly with sliding scale. Cannot resume his home dose until his appetite improves. Continue to advance diabetic diet. Qualifiers: Diabetes mellitus terminal press operator insulin use: with fpc use Qualified Code( s): E11.65 - Type 2 diabetes mellitus with hyperglycemia; Z79.4 - terminal press operator ( current) use of insulin; Z79.4 - terminal press operator (current) use of insulin; Z79.4 - retirement (current) use of insulin; Z79.4 - terminal press operator (current) use of insulin - Subjective Interval history: Daughter and son-in-law are present at bedside. 06/21 had 3 episodes of BRBPR, he was asymptomatic then. Patient stated he hasn't had any bleeds since then. Denies cp/sob, dizziness. Had episode of agitation overnight yelling at staff. He was given ativan and was improved. - Constitutional Vitals: Temp Pulse Resp BP Pulse Ox 98.4 F 91 18 164/72 96 06/23/17 18:34 06/23/17 18:34 06/23/17 18:34 06/23/17 18:34 06/23/17 18:34 Exam: Gen: NAD CVS: RRR Lungs: CTAB Abd; Soft, NT/ND, normoactive bowel sounds in all quadrants. Ext: no edema Internal Medicine: Result - Labs CBC & Chem 7: 06/23/17 04:19 06/23/17 04:19 Labs: Short CBC 06/23/17 Range/Units 04:19 WBC 11.1 (4.3-11.1) K/mcL Hgb 9.5 L (12.9-16.9) g/dL Hct 28.7 L (37.5-50.1) % Plt Count 160 (140-400) K/mcL Neutrophils # 8.5 (1.6-8.9) K/mcL BMP 06/23/17 04:19 Sodium 140 Potassium 3.8 Chloride 108 Carbon Dioxide 22 BUN 13 Creatinine 1.46 H Glucose 165 H Calcium 8.1 L - VTE Documentation of Mechanical Device: Intermittent pneumatic compression device Consult Discharge Plan - Plan Referrals: Shelli Lobo MD [Primary Care Provider] -
[2017-06-23] MEDS: Insulin DETEMIR 100 UNIT/ML X5UNITS SQ SCH (20:54)
[2017-06-24] MEDS: MetroNIDAZOLE 500 MG/100 ML 500 MG/100 ML BAG IVPB SCH ×2 (00:24→08:37)
[2017-06-24] MEDS: Piperacillin/Tazobactam 3.375 GM in D5% in Water (Mini-Bag+) 100 ML IVPB SCH ×2 (00:25→09:57)
[2017-06-24 06:29] LABS: Basophils % 0.4 %; Eosinophils # 0.3 K/mcL (0.0-0.6); Eosinophils % 3.6 %; Hematocrit 27.2 % (37.5-50.1); Hemoglobin 8.9 g/dL (12.9-16.9); Immature Granulocytes % 0.2 % (0-4); Lymphocytes # 1.5 K/mcL (0.6-4.6); Lymphocytes % 18.5 %; Mean Corpuscular HGB Conc 32.7 g/dL (31.6-35.5); Mean Corpuscular Hemoglobin 29.6 pg (28.0-33.3); Mean Corpuscular Volume 90.4 fL (83.0-100.0); Mean Platelet Volume 11.5 fL (9.4-12.4); Monocytes # 0.6 K/mcL (0.0-1.3); Monocytes % 7.1 %; Neutrophils # 5.7 K/mcL (1.6-8.9); Platelet Count 153 K/mcL (140-400); Red Blood Count 3.01 M/mcL (4.19-5.50); Red Cell Distribution Width 15.2 % (11.5-14.5); Segmented Neutrophils % 70.2 %
[2017-06-24 06:47] LABS: BUN/Creatinine Ratio 9 (6-26); Blood Urea Nitrogen 12 mg/dL (8-26); Carbon Dioxide 25 mEq/L (19-29); Chloride 111 mEq/L (98-109); Glucose 94 mg/dL (70-99); Osmolality,Calculated 294 (280-300); Potassium 3.5 mEq/L (3.5-4.5); Sodium 142 mEq/L (136-145); eGFR For African Americans > 60 (> 60); eGFR For Non-African Americans 50 (> 60)
[2017-06-24] MEDS: Insulin LISPRO 300 UNITS/3 ML VIAL SQ SCH ×4 (07:50→21:35)
[2017-06-24] MEDS: Pantoprazole 40 MG VIAL IVP SCH (08:36)
[2017-06-24] MEDS: Isosorbide MONOnitrate (24 HR) 30 MG TAB.ER.24H PO SCH (08:37)
--- NOTE | 2017-06-24 11:36 | General Surgery Progress Note ---
Date of Encounter: 06/24/17 Time of Encounter: 11:31 Subjective Patient reports: no new complaints Narrative: General Surgery patient resting comfortably, voicing no new complaints. Afeb, 98.2; pulse 89, RR 18 BP 160/90 describes visualization blood mixed with stool. Denies abd pain Abdomen soft, nontender H&H today 8.9/27.2 (previously 9.5/28.7) Impression: persistent recurrent lower GI hemorrhage; most likely diverticular colonoscopy in AM; mechanical bowel prep and clear liquids today The procedure was discussed with the patient, risks including hemorrhage, infection, cramping abdominal pain, bloating, and perforation. Objective Vital Signs - Last 8 Hours Temp Pulse Resp BP Pulse Ox 06/24/17 07:22 98.2 F 89 18 160/90 97 Intake and Output 06/23/17 06/24/17 06/24/17 23:59 07:59 15:59 Intake Total 300 / 300 200 / 200 100 / 100 Output Total 0 / 0 450 / 450 Balance 300 / 300 -250 / -250 100 / 100 Intake: IV Fluids 300 / 300 200 / 200 100 / 100 Flagyl Premix 500 MG/100 ML 500 100 / 100 100 / 100 100 / 100 mg In 100 ml @ 100 mls/hr IVPB Q8H DANIELLE Rx#:[id number] Zosyn 3.375 GM In Dextrose 5% ( 200 / 200 100 / 100 Minibag+) 100 ML 100 ML @ 25 mls/hr IVPB Q8H DANIELLE Rx#: [id number] Oral 0 / 0 0 / 0 Output: Urine 0 / 0 450 / 450 Other: Blood Glucose* 224 114 - Labs 06/24/17 05:05 06/24/17 05:05 Diabetes panel 06/24/17 Range/Units 05:05 Sodium 142 (136-145) mEq/L Potassium 3.5 (3.5-4.5) mEq/L Chloride 111 H (98-109) mEq/L Carbon Dioxide 25 (19-29) mEq/L BUN 12 (8-26) mg/dL Creatinine 1.37 H (0.72-1.25) mg/dL Glucose 94 (70-99) mg/dL Calcium 8.0 L (8.6-10.8) mg/dL Calcium panel 06/24/17 Range/Units 05:05 Calcium 8.0 L (8.6-10.8) mg/dL Pituitary panel 06/24/17 Range/Units 05:05 Sodium 142 (136-145) mEq/L Potassium 3.5 (3.5-4.5) mEq/L Chloride 111 H (98-109) mEq/L Carbon Dioxide 25 (19-29) mEq/L BUN 12 (8-26) mg/dL Creatinine 1.37 H (0.72-1.25) mg/dL Glucose 94 (70-99) mg/dL Calcium 8.0 L (8.6-10.8) mg/dL Adrenal panel 06/24/17 Range/Units 05:05 Sodium 142 (136-145) mEq/L Potassium 3.5 (3.5-4.5) mEq/L Chloride 111 H (98-109) mEq/L Carbon Dioxide 25 (19-29) mEq/L BUN 12 (8-26) mg/dL Creatinine 1.37 H (0.72-1.25) mg/dL Glucose 94 (70-99) mg/dL Calcium 8.0 L (8.6-10.8) mg/dL - VTE Documentation of Mechanical Device: Intermittent pneumatic compression device Consult Discharge Plan - Plan Referrals: Shelli Lobo MD [Primary Care Provider] -
[2017-06-24] MEDS ORDERED: Polyethylene Glycol 3350 255 GM POWDER PO ONE (16:00)
--- NOTE | 2017-06-24 16:38 | Internal Med Progress Note ---
Date of Encounter: 06/24/17 Time of Encounter: 11:00 - Assessment and plan (1) Acute GI bleeding Current Visit: Yes Status: Acute Assessment and plan: hemoglobin 8.9 today. Surgery following. Plan for colonoscopy tomorrow as patient had blood mixed stools earlier today. Moderate risk for complications. We will continue to follow blood counts. Most likely diverticular bleed. (2) JAMAL (acute kidney injury) Current Visit: Yes Status: Resolved Assessment and plan: Acute kidney injury has resolved. Creatinine is now at baseline (3) CHF (congestive heart failure) Current Visit: Yes Status: Chronic Assessment and plan: Not in acute exacerbation. Qualifiers: Congestive heart failure type: diastolic Congestive heart failure chronicity: acute Qualified Code(s): I50.31 - Acute diastolic (congestive) heart failure (4) Chronic kidney disease (CKD) Current Visit: Yes Status: Chronic Assessment and plan: Chronic and stable. Qualifiers: Chronic kidney disease stage: stage 3 (moderate) Qualified Code(s): N18.3 - Chronic kidney disease, stage 3 (moderate) (5) Diverticulosis Current Visit: Yes Status: Chronic Assessment and plan: No clear signs of acute diverticulitis at this time. On IV antibiotics. No leukocytosis. Most likely having painless diverticular bleeding. Qualifiers: Diverticulosis site: diverticulosis of large intestine Diverticulosis bleeding: diverticulosis with bleeding Qualified Code(s): K57.31 - Diverticulosis of large intestine without perforation or abscess with bleeding (6) Hyperglycemia due to type 2 diabetes mellitus Current Visit: Yes Status: Acute Assessment and plan: Blood sugars remain elevated. We will increase insulin regimen. Qualifiers: Diabetes mellitus intermission coordinator insulin use: with intermission coordinator use Qualified Code( s): E11.65 - Type 2 diabetes mellitus with hyperglycemia; Z79.4 - termite control servicer ( current) use of insulin; Z79.4 - nursing home (current) use of insulin; Z79.4 - termite control servicer (current) use of insulin; Z79.4 - nursing home (current) use of insulin (7) Hypertension Current Visit: Yes Status: Chronic Assessment and plan: Continue lisinopril and metoprolol. Blood pressure is better controlled. Qualifiers: Hypertension type: essential hypertension Qualified Code(s): I10 - Essential (primary) hypertension - Subjective Interval history: Patient is awake and alert. Complains that he has only had brought for the past 4 days and would like real food. He denies any abdominal pain at this time. He denies any further episodes of GI bleed but according to the surgeon, he had described blood mixed stools earlier today.. No dizziness or lightheadedness. No shortness of breath or chest pain at this time. - Constitutional Vitals: Temp Pulse Resp BP Pulse Ox 98.8 F 85 18 129/69 95 06/24/17 14:30 06/24/17 14:30 06/24/17 14:30 06/24/17 14:30 06/24/17 14:30 General appearance: Present: cooperative, A&O X 3, answers questions appropriately - Neck Neck exam general surgery: Present: supple, trachea midline. Absent: lymphadenopathy - Cardiovascular Cardiovascular exam: Present: RRR, +S1, +S2. Absent: diastolic murmur, gallop, rubs, systolic murmur - GI/Abdominal GI/Abdominal exam: Present: normal bowel sounds, soft, no peritoneal signs. Absent: distended, tenderness - Extremities Exam Extremities exam: Present: warm, radial pulses palpable and symmetrical. Absent : calf tenderness, cyanotic, pedal edema Internal Medicine: Result - Labs CBC & Chem 7: 06/24/17 05:05 06/24/17 05:05 Labs: Short CBC 06/24/17 Range/Units 05:05 WBC 8.1 (4.3-11.1) K/mcL Hgb 8.9 L (12.9-16.9) g/dL Hct 27.2 L (37.5-50.1) % Plt Count 153 (140-400) K/mcL Neutrophils # 5.7 (1.6-8.9) K/mcL BMP 06/24/17 05:05 Sodium 142 Potassium 3.5 Chloride 111 H Carbon Dioxide 25 BUN 12 Creatinine 1.37 H Glucose 94 Calcium 8.0 L - VTE Documentation of Mechanical Device: Intermittent pneumatic compression device Consult Discharge Plan - Plan Referrals: Shelli Lobo MD [Primary Care Provider] -
[2017-06-24] MEDS: metroNIDAZOLE 500 MG TABLET PO SCH ×2 (16:42→21:33)
[2017-06-24] MEDS ORDERED: Piperacillin/Tazobactam 3.375 GM in D5% in Water (Mini-Bag+) 100 ML IVPB SCH (17:00)
[2017-06-24] MEDS: Insulin DETEMIR 100 UNIT/ML X5UNITS SQ SCH (21:34)
[2017-06-25 05:26] LABS: Basophils % 0.4 %; Eosinophils # 0.2 K/mcL (0.0-0.6); Eosinophils % 3.1 %; Hematocrit 24.7 % (37.5-50.1); Hemoglobin 8.3 g/dL (12.9-16.9); Immature Granulocytes % 0.3 % (0-4); Lymphocytes # 1.3 K/mcL (0.6-4.6); Lymphocytes % 16.6 %; Mean Corpuscular HGB Conc 33.6 g/dL (31.6-35.5); Mean Corpuscular Hemoglobin 29.6 pg (28.0-33.3); Mean Corpuscular Volume 88.2 fL (83.0-100.0); Mean Platelet Volume 11.4 fL (9.4-12.4); Monocytes # 0.6 K/mcL (0.0-1.3); Monocytes % 8.2 %; Neutrophils # 5.5 K/mcL (1.6-8.9); Platelet Count 157 K/mcL (140-400); Red Cell Distribution Width 15.2 % (11.5-14.5); Segmented Neutrophils % 71.4 %
[2017-06-25 05:44] LABS: BUN/Creatinine Ratio 9 (6-26); Blood Urea Nitrogen 11 mg/dL (8-26); Calcium 7.9 mg/dL (8.6-10.8); Carbon Dioxide 23 mEq/L (19-29); Chloride 110 mEq/L (98-109); Glucose 125 mg/dL (70-99); Osmolality,Calculated 293 (280-300); Potassium 3.4 mEq/L (3.5-4.5); Sodium 141 mEq/L (136-145); eGFR For African Americans > 60 (> 60); eGFR For Non-African Americans 54 (> 60)
[2017-06-25] MEDS: Insulin LISPRO 300 UNITS/3 ML VIAL SQ SCH ×4 (06:41→20:49)
[2017-06-25] MEDS: metroNIDAZOLE 500 MG TABLET PO SCH ×3 (08:25→20:47)
[2017-06-25] MEDS: Isosorbide MONOnitrate (24 HR) 30 MG TAB.ER.24H PO SCH ×2 (08:25→16:31)
[2017-06-25] MEDS: Insulin DETEMIR 100 UNIT/ML X5UNITS SQ SCH ×2 (08:25→20:48)
[2017-06-25] MEDS ORDERED: *HR* Midazolam HCl 5 MG/5 ML VIAL IVP ONE ×2 (08:45→09:22)
[2017-06-25] MEDS ORDERED: *HR* FentaNYL (PF) 100 MCG/2 ML VIAL ONE (08:45)
[2017-06-25] MEDS ORDERED: Simethicone 40 MG/0.6 ML MLS IR ONE (09:22)
[2017-06-25] MEDS ORDERED: *HR* FentaNYL (PF) 100 MCG/2 ML VIAL IVP ONE (09:22)
--- NOTE | 2017-06-25 09:25 | Pre-Sedation Evaluation ---
Pre-sedation evaluation - Pre-sedation checklist Date of procedure: 06/25/17 Procedure: colonoscopy Recent Vitals: Last Vital Signs Temp 98.0 F 06/25/17 08:47 Pulse 88 06/25/17 09:18 Resp 18 06/25/17 09:18 BP 196/111 06/25/17 09:18 Pulse Ox 98 06/25/17 09:18 H&P (including ROS) documented in medical record: Yes Previous reaction to sedatives/anesthetics: No Dietary Status: NPO after Midnight Airway Assessment: Patient can open mouth completely, TMJ function normal, Micrognathia (under-bite, receding chin) absent, Neck with adequate range of motion Dentition: No loose teeth or bridges Possible difficult airway: No ASA Classification *see protocol: CLASS III-Severe systemic disease Plan of Care: Pt appropriate candidate for procedure/moderate/conscious sedation , Risks/benefits of procedure/sedation discussed w/ patient/family, If not NPO; Risk of intake outweiged by necessity to perform procedure
[2017-06-25] MEDS ORDERED: 0.9 % Sodium Chloride 1,000 ML IVC SCH (09:30)
--- NOTE | 2017-06-25 13:36 | Internal Med Progress Note ---
Date of Encounter: 06/25/17 Time of Encounter: 11:00 - Assessment and plan (1) Acute GI bleeding Current Visit: Yes Status: Acute Assessment and plan: Hemoglobin level at 8.3 today. Patient underwent colonoscopy which did not show any active bleeding. Patient has diverticulosis and an impacted diverticulum but no overt bleeding. We will continue to monitor blood counts. Start patient on a diet. Surgery recommends start red blood cell scan or capsule endoscopy if patient continues to have further episodes of GI bleed. Moderate risk for complications. (2) JAMAL (acute kidney injury) Current Visit: Yes Status: Resolved (3) CHF (congestive heart failure) Current Visit: Yes Status: Chronic Assessment and plan: No acute exacerbation. Continue Home medications Qualifiers: Congestive heart failure type: diastolic Congestive heart failure chronicity: acute Qualified Code(s): I50.31 - Acute diastolic (congestive) heart failure (4) Chronic kidney disease (CKD) Current Visit: Yes Status: Chronic Assessment and plan: Renal function remains stable. Qualifiers: Chronic kidney disease stage: stage 3 (moderate) Qualified Code(s): N18.3 - Chronic kidney disease, stage 3 (moderate) (5) Diverticulosis Current Visit: Yes Status: Chronic Assessment and plan: No signs of acute diverticulitis. Will complete 7 day antibiotic course. Qualifiers: Diverticulosis site: diverticulosis of large intestine Diverticulosis bleeding: diverticulosis with bleeding Qualified Code(s): K57.31 - Diverticulosis of large intestine without perforation or abscess with bleeding (6) Hyperglycemia due to type 2 diabetes mellitus Current Visit: Yes Status: Acute Assessment and plan: Better controlled. We will continue to monitor blood sugars and adjust insulin regimen accordingly. Qualifiers: Diabetes mellitus home organizer insulin use: with home organizer use Qualified Code( s): E11.65 - Type 2 diabetes mellitus with hyperglycemia; Z79.4 - penitentiary ( current) use of insulin; Z79.4 - penitentiary (current) use of insulin; Z79.4 - technical services analyst (current) use of insulin; Z79.4 - technical services analyst (current) use of insulin (7) Hypertension Current Visit: Yes Status: Chronic Assessment and plan: Continue lisinopril and metoprolol. 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 Underlying chronic kidney disease. Hemoglobin 8.3 today. We will continue to monitor blood counts. Qualifiers: Anemia type: other cause Other causes of anemia: acute posthemorrhagic Qualified Code(s): D62 - Acute posthemorrhagic anemia - Subjective Interval history: Patient is lying in bed. Underwent colonoscopy this morning. Doing well postprocedure. Had some blood-tinged stools last night but since then has not had any further episodes of bleeding per rectum. Denies any dizziness or lightheadedness. - Constitutional Vitals: Temp Pulse Resp BP Pulse Ox 98.1 F 74 20 125/62 93 06/25/17 11:04 06/25/17 11:04 06/25/17 11:04 06/25/17 11:04 06/25/17 11:04 General appearance: Present: cooperative, A&O X 3, answers questions appropriately - Neck Neck exam general surgery: Present: supple, trachea midline. Absent: lymphadenopathy - Respiratory Respiratory exam: Present: CTAB. Absent: accessory muscle use, rales, rhonchi, wheezes - Cardiovascular Cardiovascular exam: Present: RRR, +S1, +S2. Absent: diastolic murmur, gallop, rubs, systolic murmur - GI/Abdominal GI/Abdominal exam: Present: normal bowel sounds, soft, no peritoneal signs. Absent: distended, tenderness - Extremities Exam Extremities exam: Present: warm, radial pulses palpable and symmetrical. Absent : calf tenderness, cyanotic, pedal edema Internal Medicine: Result - Labs CBC & Chem 7: 06/25/17 05:06 06/25/17 05:06 Labs: Short CBC 06/25/17 Range/Units 05:06 WBC 7.7 (4.3-11.1) K/mcL Hgb 8.3 L (12.9-16.9) g/dL Hct 24.7 L (37.5-50.1) % Plt Count 157 (140-400) K/mcL Neutrophils # 5.5 (1.6-8.9) K/mcL BMP 06/25/17 05:06 Sodium 141 Potassium 3.4 L Chloride 110 H Carbon Dioxide 23 BUN 11 Creatinine 1.27 H Glucose 125 H Calcium 7.9 L - VTE Documentation of Mechanical Device: Intermittent pneumatic compression device Consult Discharge Plan - Plan Referrals: Shelli Lobo MD [Primary Care Provider] -
[2017-06-26] MEDS: *HR* OxyCODONE/APAP 10/325 TABLET PO PRN ×3 (02:42→21:10)
[2017-06-26] MEDS: metroNIDAZOLE 500 MG TABLET PO SCH ×3 (08:11→21:10)
[2017-06-26] MEDS: Isosorbide MONOnitrate (24 HR) 30 MG TAB.ER.24H PO SCH (08:12)
[2017-06-26] MEDS: Insulin LISPRO 300 UNITS/3 ML VIAL SQ SCH ×4 (08:14→21:11)
[2017-06-26 09:18] LABS: Hematocrit 24.4 % (37.5-50.1); Hemoglobin 8.3 g/dL (12.9-16.9); Mean Corpuscular Hemoglobin 29.6 pg (28.0-33.3); Mean Corpuscular Volume 87.1 fL (83.0-100.0); Mean Platelet Volume 11.6 fL (9.4-12.4); Platelet Count 190 K/mcL (140-400)
[2017-06-26 09:22] LABS: Eosinophils # 0.1 K/mcL (0.0-0.6); Lymphocytes # 2.2 K/mcL (0.6-4.6); Monocytes # 0.4 K/mcL (0.0-1.3); Neutrophils # 4.5 K/mcL (1.6-8.9)
[2017-06-26 09:23] LABS: Platelet Estimate Normal (Normal)
[2017-06-26] MEDS: Insulin DETEMIR 100 UNIT/ML X5UNITS SQ SCH ×2 (10:34→21:13)
--- NOTE | 2017-06-26 13:13 | General Surgery Progress Note ---
Date of Encounter: 06/26/17 Time of Encounter: 13:10 Subjective Narrative: General Surgery - Post colonoscopy follow up The patient voicing no complaints; tolerated the procedure well Denies any recurrent rectal bleeding at this time. Remains afebrile, 97.7, pulse 70, pressors 16, blood pressure 158/87 Hemodynamically stable. AM H&H stable at 8.3 and 24.4. Impression: Lower gastrointestinal hemorrhage, likely diverticular in etiology. Colonoscopy did not demonstrate a specific source Lengthy discussion with the patient and his family in the postoperative phase If the patient remains stable another 24 hours it may be reasonable to discharge home. The patient and family is aware of the risk of recurrent hemorrhage at any time. If recurrent GI hemorrhage is suspected - recommend RBC tagged nuclear scan in an attempt to identify the source with possible embolization if the source can be identified. If all else fails, patient may require surgery. With the patient's advanced age - surgery should be considered a last resort. Objective Vital Signs - Last 8 Hours Temp Pulse Resp BP Pulse Ox 06/26/17 10:58 97.7 F 70 16 158/87 100 06/26/17 08:32 95 06/26/17 07:36 97.8 F 84 16 164/82 95 Intake and Output 06/25/17 06/26/17 06/26/17 23:59 07:59 15:59 Intake Total 120 / 120 240 / 240 Output Total 800 / 800 Balance -680 / -680 240 / 240 Intake: Oral 120 / 120 240 / 240 Output: Urine 800 / 800 Other: Meal Dinner Percent of Meal Consumed 85% Stool Size Smear Stool Consistency loose Stool Color Harish Colored # Bowel Movements 1 # Bowel Movement Diapers 1 Weight 86.693 kg Blood Glucose* 241 164 281 Patient Weight 06/26/17 23:59 Weight 86.693 kg - Labs 06/26/17 05:58 06/25/17 05:06 - VTE Documentation of Mechanical Device: Intermittent pneumatic compression device Consult Discharge Plan - Plan Referrals: Shelli Loob MD [Primary Care Provider] -
--- NOTE | 2017-06-26 14:14 | Internal Med Progress Note ---
Date of Encounter: 06/26/17 Time of Encounter: 08:50 - Assessment and plan (1) Acute GI bleeding Current Visit: Yes Status: Acute Assessment and plan: Improving. Colonoscopy done yesterday did not reveal any active bleeding. Patient did have significant diverticulosis and an impacted diverticulum. Hemoglobin levels have remained stable. Surgery recommends monitoring the patient for another 24 hours and discharging him if he does not have any further episodes of bleeding. Moderate risk for complications. (2) JAMAL (acute kidney injury) Current Visit: Yes Status: Resolved (3) CHF (congestive heart failure) Current Visit: Yes Status: Chronic Assessment and plan: No acute exacerbation Qualifiers: Congestive heart failure type: diastolic Congestive heart failure chronicity: acute Qualified Code(s): I50.31 - Acute diastolic (congestive) heart failure (4) Chronic kidney disease (CKD) Current Visit: Yes Status: Chronic Assessment and plan: Renal function remained stable Qualifiers: Chronic kidney disease stage: stage 3 (moderate) Qualified Code(s): N18.3 - Chronic kidney disease, stage 3 (moderate) (5) Diverticulosis Current Visit: Yes Status: Chronic Assessment and plan: Supportive care. Diverticulosis diet. Qualifiers: Diverticulosis site: diverticulosis of large intestine Diverticulosis bleeding: diverticulosis with bleeding Qualified Code(s): K57.31 - Diverticulosis of large intestine without perforation or abscess with bleeding (6) Hyperglycemia due to type 2 diabetes mellitus Current Visit: Yes Status: Acute Assessment and plan: Improving blood sugars. Continue current insulin regimen Qualifiers: Diabetes mellitus terminal manager insulin use: with longterm use Qualified Code( s): E11.65 - Type 2 diabetes mellitus with hyperglycemia; Z79.4 - technician terminal and repeater ( current) use of insulin; Z79.4 - [facility] (current) use of insulin; Z79.4 - technician terminal and repeater (current) use of insulin; Z79.4 - technician terminal and repeater (current) use of insulin (7) Hypertension Current Visit: Yes Status: Chronic Assessment and plan: Blood pressure is well controlled Qualifiers: Hypertension type: essential hypertension Qualified Code(s): I10 - Essential (primary) hypertension (8) Anemia Current Visit: Yes Status: Acute Assessment and plan: hemoglobin levels remained stable. Qualifiers: Anemia type: other cause Other causes of anemia: acute posthemorrhagic Qualified Code(s): D62 - Acute posthemorrhagic anemia (9) Visual disturbances Current Visit: Yes Status: Acute Assessment and plan: In right eye. Could be related to diabetic retinopathy. CT scan of the head done and does not show any acute abnormalities. Carotid Doppler also ordered. Will follow results. Less likely to be TIA. Symptoms have now resolved. - Subjective Interval history: Patient is sitting up in chair. Eating breakfast. Denies any new episodes of bloody stools. He reported an episode of black spots in his right field of vision that lasted for about 5 minutes. Denies any focal weakness or numbness. - Constitutional Vitals: Temp Pulse Resp BP Pulse Ox 97.7 F 70 16 158/87 100 06/26/17 10:58 06/26/17 10:58 06/26/17 10:58 06/26/17 10:58 06/26/17 10:58 General appearance: Present: cooperative, A&O X 3, answers questions appropriately - Neck Neck exam general surgery: Present: supple, trachea midline. Absent: lymphadenopathy - Respiratory Respiratory exam: Present: CTAB. Absent: accessory muscle use, rales, rhonchi, wheezes - Cardiovascular Cardiovascular exam: Present: RRR, +S1, +S2. Absent: diastolic murmur, gallop, rubs, systolic murmur - GI/Abdominal GI/Abdominal exam: Present: normal bowel sounds, soft, no peritoneal signs. Absent: distended, tenderness - Neurological Exam Neurological exam: Present: alert, CN II-XII intact, oriented X3, no focal deficits, strengths equal and symetr throughout. Absent: facial droop, speech deficit - Skin Skin exam: Present: dry, intact Internal Medicine: Result - Labs CBC & Chem 7: 06/26/17 05:58 06/25/17 05:06 Labs: Short CBC 06/26/17 Range/Units 05:58 WBC 7.2 (4.3-11.1) K/mcL Hgb 8.3 L (12.9-16.9) g/dL Hct 24.4 L (37.5-50.1) % Plt Count 190 (140-400) K/mcL Neutrophils # 4.5 (1.6-8.9) K/mcL - Impressions Impressions Head CT 06/26/17 09:00 IMPRESSION: 1. No acute intracranial abnormality. 2. 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 D/ / Maximino Dudley MD / Maximino Dudley MD Interpreting Provider: Maximino Dudley MD - VTE Documentation of Mechanical Device: Intermittent pneumatic compression device Consult Discharge Plan - Plan Referrals: Shelli Lobo MD [Primary Care Provider] -
[2017-06-27 05:18] LABS: Hematocrit 28.3 % (37.5-50.1); Hemoglobin 9.3 g/dL (12.9-16.9)
[2017-06-27 05:36] LABS: BUN/Creatinine Ratio 9 (6-26); Blood Urea Nitrogen 11 mg/dL (8-26); Calcium 8.1 mg/dL (8.6-10.8); Carbon Dioxide 22 mEq/L (19-29); Chloride 109 mEq/L (98-109); Glucose 147 mg/dL (70-99); Osmolality,Calculated 290 (280-300); Potassium 3.7 mEq/L (3.5-4.5); Sodium 139 mEq/L (136-145); eGFR For African Americans > 60 (> 60); eGFR For Non-African Americans 56 (> 60)
[2017-06-27] MEDS: *HR* OxyCODONE/APAP 10/325 TABLET PO PRN (05:50)
[2017-06-27] MEDS: Isosorbide MONOnitrate (24 HR) 30 MG TAB.ER.24H PO SCH (08:18)
[2017-06-27] MEDS: metroNIDAZOLE 500 MG TABLET PO SCH ×2 (08:18→12:23)
[2017-06-27] MEDS: Insulin LISPRO 300 UNITS/3 ML VIAL SQ SCH ×2 (08:19→12:23)
[2017-06-27 10:34] VITALS: BP 144/79
[2017-06-27] MEDS: Insulin DETEMIR 100 UNIT/ML X5UNITS SQ SCH (12:23)
--- NOTE | 2017-06-27 13:11 | General Surgery Progress Note ---
Date of Encounter: 06/27/17 Time of Encounter: 13:08 Subjective Narrative: General Surgery - patient without complaints; describes his stool was dark but no detected blood Hemodynamically stable ; Abdomen soft, nontender Hemoglobin 9.3, hematocrit 28.3; no transfusion since 06/22/17. Impression: Blood loss anemia most likely due to lower GI bleed due to diverticulosis. Current status stable. Will sign off for now - call if needed Objective Vital Signs - Last 8 Hours Temp Pulse Resp BP Pulse Ox 06/27/17 10:28 97.8 F 82 18 144/79 93 06/27/17 07:40 98.4 F 105 18 163/83 92 Intake and Output 06/26/17 06/27/17 06/27/17 23:59 07:59 15:59 Intake Total 120 / 120 120 / 120 0 / 0 Output Total 350 / 350 350 / 350 0 / 0 Balance -230 / -230 -230 / -230 0 / 0 Intake: Oral 120 / 120 120 / 120 0 / 0 Output: Urine 350 / 350 350 / 350 0 / 0 Other: Meal Dinner Percent of Meal Consumed 75% # Voids 1 Weight 87.952 kg Blood Glucose* 219 176 185 Patient Weight 06/27/17 23:59 Weight 87.952 kg - Labs 06/27/17 04:42 06/27/17 04:42 Diabetes panel 06/27/17 Range/Units 04:42 Sodium 139 (136-145) mEq/L Potassium 3.7 (3.5-4.5) mEq/L Chloride 109 (98-109) mEq/L Carbon Dioxide 22 (19-29) mEq/L BUN 11 (8-26) mg/dL Creatinine 1.24 (0.72-1.25) mg/dL Glucose 147 H (70-99) mg/dL Calcium 8.1 L (8.6-10.8) mg/dL Calcium panel 06/27/17 Range/Units 04:42 Calcium 8.1 L (8.6-10.8) mg/dL Pituitary panel 06/27/17 Range/Units 04:42 Sodium 139 (136-145) mEq/L Potassium 3.7 (3.5-4.5) mEq/L Chloride 109 (98-109) mEq/L Carbon Dioxide 22 (19-29) mEq/L BUN 11 (8-26) mg/dL Creatinine 1.24 (0.72-1.25) mg/dL Glucose 147 H (70-99) mg/dL Calcium 8.1 L (8.6-10.8) mg/dL Adrenal panel 06/27/17 Range/Units 04:42 Sodium 139 (136-145) mEq/L Potassium 3.7 (3.5-4.5) mEq/L Chloride 109 (98-109) mEq/L Carbon Dioxide 22 (19-29) mEq/L BUN 11 (8-26) mg/dL Creatinine 1.24 (0.72-1.25) mg/dL Glucose 147 H (70-99) mg/dL Calcium 8.1 L (8.6-10.8) mg/dL - VTE Documentation of Mechanical Device: Intermittent pneumatic compression device Consult Discharge Plan - Plan Referrals: Shelli Lobo MD [Primary Care Provider] -
--- NOTE | 2017-06-27 13:19 | Discharge Summary ---
Date of Encounter: 06/27/17 Time of Encounter: 12:00 - Discharge Diagnosis (1) Acute GI bleeding Priority: Primary Status: Acute (2) JAMAL (acute kidney injury) Priority: Secondary Status: Resolved (3) CHF (congestive heart failure) Priority: Secondary Status: Chronic Qualifiers: Congestive heart failure type: diastolic Congestive heart failure chronicity: acute Qualified Code(s): I50.31 - Acute diastolic (congestive) heart failure (4) Chronic kidney disease (CKD) Priority: Secondary Status: Chronic Qualifiers: Chronic kidney disease stage: stage 3 (moderate) Qualified Code(s): N18.3 - Chronic kidney disease, stage 3 (moderate) (5) Diverticulosis Priority: Secondary Status: Chronic Qualifiers: Diverticulosis site: diverticulosis of large intestine Diverticulosis bleeding: diverticulosis with bleeding Qualified Code(s): K57.31 - Diverticulosis of large intestine without perforation or abscess with bleeding (6) Hyperglycemia due to type 2 diabetes mellitus Priority: Secondary Status: Acute Qualifiers: Diabetes mellitus correction insulin use: with terminal worker use Qualified Code( s): E11.65 - Type 2 diabetes mellitus with hyperglycemia; Z79.4 - tank terminal gauger ( current) use of insulin; Z79.4 - tank terminal gauger (current) use of insulin; Z79.4 - skilled nursing (current) use of insulin; Z79.4 - tank terminal gauger (current) use of insulin (7) Hypertension Priority: Secondary Status: Chronic Qualifiers: Hypertension type: essential hypertension Qualified Code(s): I10 - Essential (primary) hypertension (8) Anemia Priority: Secondary Status: Acute Qualifiers: Anemia type: other cause Other causes of anemia: acute posthemorrhagic Qualified Code(s): D62 - Acute posthemorrhagic anemia (9) Visual disturbances Priority: Secondary Status: Resolved - Discharge Medications Prescriptions: Pravastatin Sodium [Pravachol] 20 mg PO HS #30 tablet Home Medications: GlipiZIDE XL (24 HR) [Glucotrol XL] 5 mg PO BID 08/16/15 [History] Insulin DETEMIR [Levemir] 15 unit SQ BID 08/16/15 [History] Promethazine [Phenergan] 25 mg PO BID PRN 08/16/15 [History] Acetaminophen [Tylenol] 650 mg PO Q6HR PRN #30 tablet 08/09/16 [Rx] Doxazosin Mesylate [Cardura] 2 mg PO HS #60 tablet 05/26/17 [Rx] Isosorbide MONOnitrate (24 HR) [Imdur] 30 mg PO DAILY #30 tab.er.24h 05/26/17 [ Rx] Nitroglycerin [Nitrostat] 0.4 mg SL Q5M #1 vial 05/26/17 [Rx] Potassium Chloride 10 meq PO DAILY #30 tab.er.prt 05/26/17 [Rx] Lisinopril [Zestril] 20 mg PO BID 06/18/17 [History] Metoprolol [Lopressor] 50 mg PO BID 06/18/17 [History] Mupirocin Calcium [Mupirocin] 1 appl TP BID 06/18/17 [History] OxyCODONE/APAP 5/325 [Percocet 5/325 MG] 1 tab PO BID PRN 06/18/17 [History] Ranitidine HCl [Heartburn Relief] 150 mg PO BID 06/18/17 [History] hydroCHLOROthiazide [Hydrochlorothiazide] 25 mg PO DAILY 06/18/17 [History] metFORMIN [Glucophage] 500 mg PO BID 06/18/17 [History] Pravastatin Sodium [Pravachol] 20 mg PO HS #30 tablet 06/27/17 [Rx] Allergies/Adverse Reactions: 3 Allergy/AdvReac Type Severity Reaction Status Date / Time morphine Allergy See Verified 05/03/17 07:37 Comments Procedures/tests Complete & Pending: Procedures Performed prior 72 hours Category Date Time Status CT head/brain wo con [CT] Stat Cat Scan 06/26/17 09:00 Completed EV carotid duplex imaging BI Stat Y 06/26/17 08:33 Completed Date of admission: 06/18/17 04:08 Primary care physician: Shelli Fisher Consults: 06/18/17 16:39 Consult to Surgery [CONS] Routine Consulting Provider: Surgery [facility] - [facility] Reason for Consult: GIB Call Completed: Yes 06/20/17 10:56 OT [Consult to Occupational Therapy] [CONS] Routine Comment: Evaluate, develop and implement POC Reason for Consult: Evaluate for possible placement PT [Consult to Physical Therapy] [CONS] Routine Comment: Evaluate, develop and implement POC Reason for Consult: Evaluate for possible placement 06/21/17 11:20 Consult to Invasive Line Access Team [CONS] Routine Reason for Consult: difficult access Line Type: EPIV 06/24/17 08:34 Consult to Assembling Fabricator [CONS] Routine Reason for SW Consult: DC planning Discharging clinician: Esme Rangel Anticipated date of discharge: 06/27/17 - Patient Status Disposition: Transfer SNF Condition: Fair Functional capacity at discharge: uses cane/walker Overall status at discharge: patient is progressing back to baseline - Discharge Instructions Instructions: Diabetes Mellitus Type 2 in Adults (DC), Chronic Hypertension (DC ), Anemia (GEN) Follow Up With: Shelli Lobo MD [Primary Care Provider] - - Diet and Activity Activity: as per physical therapy Diet: advance to your usual diet, diabetic diet, low fat, low cholesterol, low salt diet Hospital course: Mr. Balderrama is a 82 year old male patient with a history of diabetes mellitus type 2, hypertension hypertension, diverticulosis who presented to the ER at an outside hospital with complaints of GI bleed per rectum. Surgery was consulted and patient also received packed red blood cell transfusion prior to transfer to this hospital. He also had acute kidney injury with an elevation of his creatinine to 2.26 initially. He was evaluated by surgery and underwent upper GI endoscopy which showed no gross lesions in the stomach and a normal duodenum. Patient was not placed on clear liquid diet and his blood counts were followed. Patient was diagnosis with mild acute diverticulitis and was placed on intravenous antibiotics. As his symptoms improved, he was transitioned to oral antibiotics and his blood counts were followed. The patient then again developed bleeding per rectum mixed with stools. Surgery reevaluated the patient and then recommended colonoscopy. The patient underwent colonoscopy on 06/25/2017. Patient was found to have significant colonic diverticulosis with an impacted diverticulum. No active bleeding was identified. Since then patient has not had any further episodes of GI bleed. His blood counts have remained stable. His renal function has returned to baseline. His nocturia is stable to be discharged. He had been evaluated by physical therapy and recommended placement to skilled rehabilitation. He will be discharged to skilled to have today. Yesterday morning patient had complained of some visual symptoms with black spots in his field of vision. Most likely this is due to diabetic retinopathy. Patient underwent CT scan of the head which was negative for any acute event. His carotid Dopplers were also done which showed nonstenotic plaque. Patient' s symptoms subsided within 5 minutes of onset. He has not had any similar symptoms since then. Patient had been on Plavix previously but this was held due to GI bleed. I recommend that we check his CBC in 1 week after discharge and if his blood counts remained stable, Plavix may be resumed. He will also be placed on statin. No other medication changes are being made at this time. - Time Spent with Patient Total time spent providing and/or coordinating discharge services: Greater than 30 minutes (45 min) - Constitutional Vitals: Temp Pulse Resp BP Pulse Ox 97.8 F 82 18 144/79 93 06/27/17 10:28 06/27/17 10:28 06/27/17 10:28 06/27/17 10:28 06/27/17 10:28 General appearance: Present: cooperative, A&O X 3, answers questions appropriately - Respiratory Respiratory exam: Present: CTAB. Absent: accessory muscle use, rales, rhonchi, wheezes - Cardiovascular Cardiovascular exam: Present: RRR, +S1, +S2. Absent: diastolic murmur, gallop, rubs, systolic murmur - GI/Abdominal GI/Abdominal exam: Present: normal bowel sounds, soft, no peritoneal signs. Absent: distended, tenderness - Extremities Exam Extremities exam: Present: warm, radial pulses palpable and symmetrical. Absent : calf tenderness, cyanotic, pedal edema - Neurological Exam Neurological exam: Present: alert, oriented X3, no focal deficits. Absent: facial droop, speech deficit - Skin Skin exam: Present: dry, intact - VTE Documentation of Mechanical Device: Intermittent pneumatic compression device
--- NOTE | 2017-06-27 13:39 | Physician Discharge Referral ---
[facility] Referral Info Provider in Charge after Transfer: PCP Institutional Level of Care: Skilled - Diagnosis (1) Acute GI bleeding Priority: Primary Status: Acute (2) JAMAL (acute kidney injury) Priority: Secondary Status: Resolved (3) CHF (congestive heart failure) Priority: Secondary Status: Chronic (4) Chronic kidney disease (CKD) Priority: Secondary Status: Chronic (5) Diverticulosis Priority: Secondary Status: Chronic (6) Hyperglycemia due to type 2 diabetes mellitus Priority: Secondary Status: Acute (7) Hypertension Priority: Secondary Status: Chronic (8) Anemia Priority: Secondary Status: Acute (9) Visual disturbances Priority: Secondary Status: Resolved Prognosis: Fair Aware of Diagnosis: Patient, Family Aware of Prognosis: Patient, Family - Transfer Medications Prescriptions: Pravastatin Sodium [Pravachol] 20 mg PO HS #30 tablet Home Medications: GlipiZIDE XL (24 HR) [Glucotrol XL] 5 mg PO BID 08/16/15 [History] Insulin DETEMIR [Levemir] 15 unit SQ BID 08/16/15 [History] Promethazine [Phenergan] 25 mg PO BID PRN 08/16/15 [History] Acetaminophen [Tylenol] 650 mg PO Q6HR PRN #30 tablet 08/09/16 [Rx] Doxazosin Mesylate [Cardura] 2 mg PO HS #60 tablet 05/26/17 [Rx] Isosorbide MONOnitrate (24 HR) [Imdur] 30 mg PO DAILY #30 tab.er.24h 05/26/17 [ Rx] Nitroglycerin [Nitrostat] 0.4 mg SL Q5M #1 vial 05/26/17 [Rx] Potassium Chloride 10 meq PO DAILY #30 tab.er.prt 05/26/17 [Rx] Lisinopril [Zestril] 20 mg PO BID 06/18/17 [History] Metoprolol [Lopressor] 50 mg PO BID 06/18/17 [History] Mupirocin Calcium [Mupirocin] 1 appl TP BID 06/18/17 [History] OxyCODONE/APAP 5/325 [Percocet 5/325 MG] 1 tab PO BID PRN 06/18/17 [History] Ranitidine HCl [Heartburn Relief] 150 mg PO BID 06/18/17 [History] hydroCHLOROthiazide [Hydrochlorothiazide] 25 mg PO DAILY 06/18/17 [History] metFORMIN [Glucophage] 500 mg PO BID 06/18/17 [History] Pravastatin Sodium [Pravachol] 20 mg PO HS #30 tablet 06/27/17 [Rx] Allergies/Adverse Reactions: 3 Allergy/AdvReac Type Severity Reaction Status Date / Time morphine Allergy See Verified 05/03/17 07:37 Comments - Respiratory Orders Smoking Cessation: Smoking cessation has been advised. For more information, call the [place] Tobacco Quit Line at 0-838-PCST-NOW. - Lab Orders Lab Orders: Other (include drug levels w/frequency) (CBC in 1 week) - Ancillary Orders May consult with Dentist, Cage/Vault Supervisor, Wagon Person PRN - Advance Directives Code Status: Full Code - Mobility Orders Ambulate (per PT) - Rehabiliation Orders Rehab Potential: Fair Rehab Orders: Evaluation for Physical Therapy, Evaluation for Occupational Therapy - Diet Orders Cardiac CERTIFICATION: I certify that the transfer of the above named patient to an Extended Care Facility is necessary for the continuing treatment of the diagnosis listed. The above information is true and accurate reflection of patient's current condition. Confidential - Redisclosure prohibited without a patient's written consent.
== END 2017-06-27 15:09 | DRG 377 ==
LOC: ICNU → SUATTDRO 04:08 → 3ANU 18:03
PROVIDERS: ADMIT Student in an Organized Health Care Education/Training Program; ATTEND Internal Medicine

== ENCOUNTER 2017-07-29 08:37 | Inpatient (IN) ==
[2017-07-29] MEDS ORDERED: 0.9 % Sodium Chloride 1,000 ML IVC ONE (09:08)
[2017-07-29] MEDS ORDERED: Ipratropium/Albuterol Neb 3 ML IH ONE (09:08)
--- NOTE | 2017-07-29 09:15 | Emergency Department Note ---
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 Qualified Code(s ): E11.65 - Type 2 diabetes mellitus with hyperglycemia Disposition: Admitted As Inpatient Condition: Fair Referrals: Shelli Lobo MD [Primary Care Provider] - SOB HPI - General Chief Complaint: ED Shortness of Breath/Dyspnea Stated Complaint: JULIAN Time Seen by Provider: 07/29/17 08:45 Source: patient, family Mode of arrival: private vehicle Limitations: no limitations Nursing Notes Reviewed: Yes Vital Signs Reviewed: Yes - History of Present Illness Pt Subjective Complaint: shortness of breath, cough Onset (ago): week(s) (worse since yesterday) Context: other Severity: moderate Consistency/Duration: gradually worsening Improves with: oxygen, rest Worsens with: coughing Known history of: other (recent inpatient stay for diverticulitis - anemia - 6 weeks ago) Associated symptoms: Reports: fever, cough. Denies: chest pain, pain with inspiration, wheezing, sputum production, orthopnea, lower extremity pain, polyuria, polydipsia, parasthesias, palpitations, hemoptysis, diaphoresis, nausea/vomiting, syncope, abdominal pain, sense of impending doom Treatment prior to arrival: none Cough present: Yes Cough Description: Involuntary, Non-Productive, Dry Cough Frequency: Intermittent Sputum production: No Sputum Amount: None - Related Data Home oxygen amount: none Home Medications Medication Instructions Recorded Confirmed GlipiZIDE XL (24 HR) [Glucotrol XL] 5 mg PO BID 08/16/15 06/18/17 Insulin DETEMIR [Levemir] 15 unit SQ BID 08/16/15 06/18/17 Promethazine [Phenergan] 25 mg PO BID PRN 08/16/15 06/18/17 Lisinopril [Zestril] 20 mg PO BID 06/18/17 06/18/17 Metoprolol [Lopressor] 50 mg PO BID 06/18/17 06/18/17 Ranitidine HCl [Heartburn Relief] 150 mg PO BID 06/18/17 06/18/17 hydroCHLOROthiazide 25 mg PO DAILY 06/18/17 06/18/17 [Hydrochlorothiazide] metFORMIN [Glucophage] 500 mg PO BID 06/18/17 06/18/17 Doxazosin Mesylate [Cardura] 2 mg PO HS 07/29/17 07/29/17 Previous Rx's Medication Instructions Recorded Acetaminophen [Tylenol] 650 mg PO Q6HR PRN #30 tablet 08/09/16 Nitroglycerin [Nitrostat] 0.4 mg SL Q5M #1 vial 05/26/17 Potassium Chloride 10 meq PO DAILY #30 tab.er.prt 05/26/17 OxyCODONE/APAP 5/325 [Percocet 1 tab PO BID PRN #14 tablet 06/27/17 5/325 MG] Pravastatin Sodium [Pravachol] 20 mg PO HS #30 tablet 06/27/17 Allergies Allergy/AdvReac Type Severity Reaction Status Date / Time morphine Allergy See Verified 07/29/17 08:43 Comments All systems ED: reviewed and negative except as stated. Review of Systems: As Per HPI Constitutional: Reports: as per HPI, fever. Denies: chills, weakness, weight change, night sweats Eyes: Denies: eye pain, eye discharge, vision change ENT ED: Denies: ear pain, throat pain, congestion, dysphagia Cardiovascular: Reports: dyspnea on exertion. Denies: chest pain, palpitations , orthopnea, edema, syncope Respiratory: Reports: as per HPI, cough, dyspnea. Denies: wheezes, hemoptysis, stridor, sputum production Gastrointestinal: Denies: abdominal pain, nausea, vomiting Musculoskeletal: Denies: joint swelling, arthralgia Integumentary: Denies: rash Neurological: Denies: headache, weakness, confusion, vertigo Endocrine: Reports: fatigue Hematological/Lymphatic: Denies: easy bleeding, easy bruising Past Medical History - Past Medical History Attestation: Yes The following information was validated with the patient. Source: patient Medical history: Reports: coronary artery disease, diabetes, GI bleed, hypertension, myocardial infarction Surgical history: Reports: angioplasty/stent (multiple ), cholecystectomy, coronary bypass (CABG) Psychiatric history: Reports: no psych history - Social History Smoking Status: Former smoker Smokeless Tobacco Status: No Alcohol use: Reports: none Drug use: Reports: none Physical Exam - General Limitations: no limitations General appearance: alert, in no apparent distress - Head Head exam: atraumatic, normocephalic, normal inspection - Eye Eye exam: Present: normal appearance, PERRL. Absent: scleral icterus, conjunctival injection, periorbital swelling - ENT ENT exam: mucous membranes dry - Neck Neck exam: Present: normal inspection, full ROM, trachea midline. Absent: meningismus - Chest Chest inspection: Present: normal inspection, symmetric chest wall rise. Absent : tenderness - Respiratory Respiratory exam: Absent: respiratory distress, wheezes, stridor, accessory muscle use, prolonged expiratory phase - Expanded Respiratory Exam Location: decreased breath sounds: Left, Lower - Cardiovascular Cardiovascular exam: Present: regular rate, normal rhythm, normal heart sounds - Abdominal Exam Abdominal exam: Present: soft, Non-Tender. Absent: distention, guarding, mass - Extremities Exam Extremities exam: Present: full ROM, normal capillary refill, pedal edema (mild 1+ non-pitting). Absent: tenderness, calf tenderness - Back Exam Back exam: Present: normal inspection - Neurological Exam Neurological exam: Present: alert, oriented X3, CN II-XII intact - Psychiatric Psychiatric exam: Present: normal mood, flat affect - Skin Skin exam: Present: warm, dry, intact, normal color Course Course Narrative: Patient arrives with his for evaluation of worsening dyspnea. He has had a cough and shortness of breath for several weeks. It has been getting worse. He was seen at urgent care for it last night and was told that if he did not improve he should come to the ER today. This morning he felt worse and his shortness of breath became worse so he came in for treatment. He denies history of COPD and is not on oxygen at home. His states that he had a fever this morning and then broke out in a cold sweat. He denies chest pain or palpitations, leg pain or increased swelling in the extremities. He has had no recent procedures. He has had a dry cough that is intermittent. He denies hemoptysis. On exam he is currently afebrile with normal blood pressure and a heart rate in the 90s. His oxygen saturation upon arrival was 96% on room air. He is at 98% on 2 L. He is tachypneic at 22 and has decreased breath sounds in the left base. Labs, EKG and x-ray have been ordered. CXR shows left pleural effusion. WBC count is up - 16.4. Glucose is up, as is creatinine and lactic acid-2.4. Fluids and duoneb ordered. Patient feeling a little better. Still afebrile here. ABX ordered. Case discussed with Dr. Lopez. He has seen the patient and agrees with the assessment and plan. He simona's adding a dimer. Case discussed with the hospitalist. Patient has been accepted for admission. Vital Signs Temperature 96.3 F L 07/29/17 08:38 Pulse Rate 96 07/29/17 08:38 Respiratory Rate 16 07/29/17 08:38 Blood Pressure 195/98 07/29/17 08:38 O2 Sat by Pulse Oximetry 97 07/29/17 08:38 Temperature 96.3 F L 07/29/17 08:38 Pulse Rate 96 07/29/17 08:38 Respiratory Rate 16 07/29/17 08:38 Blood Pressure 195/98 07/29/17 08:38 O2 Sat by Pulse Oximetry 97 07/29/17 08:38 Oxygen Delivery Oxygen Delivery Room Air Shortness of Breath/Dyspnea - Medical Records Medical records reviewed: Yes I reviewed the patient's medical records. - Lab Data Lab results reviewed: Yes I reviewed the patient's lab results. Lab results narrative: Laboratory Last Values WBC 16.4 K/mcL (4.3-11.1) H 07/29/17 09:33 RBC 4.36 M/mcL (4.19-5.50) 07/29/17 09:33 Hgb 12.0 g/dL (12.9-16.9) L 07/29/17 09:33 Hct 37.4 % (37.5-50.1) L 07/29/17 09:33 MCV 85.8 fL (83.0-100.0) 07/29/17 09:33 MCH 27.5 pg (28.0-33.3) L 07/29/17 09:33 MCHC 32.1 g/dL (31.6-35.5) 07/29/17 09:33 RDW 14.4 % (11.5-14.5) 07/29/17 09:33 Plt Count 243 K/mcL (140-400) 07/29/17 09:33 MPV 11.0 fL (9.4-12.4) 07/29/17 09:33 Immature Gran % 0.4 % (0-4) 07/29/17 09:33 Seg Neutrophils % 82.3 % 07/29/17 09:33 Lymphocytes % 9.0 % 07/29/17 09:33 Monocytes % 5.7 % 07/29/17 09:33 Eosinophils % 1.9 % 07/29/17 09:33 Basophils % 0.7 % 07/29/17 09:33 Neutrophils # 13.5 K/mcL (1.6-8.9) H 07/29/17 09:33 Lymphocytes # 1.5 K/mcL (0.6-4.6) 07/29/17 09:33 Monocytes # 0.9 K/mcL (0.0-1.3) 07/29/17 09:33 Eosinophils # 0.3 K/mcL (0.0-0.6) 07/29/17 09:33 Basophils # 0.1 K/mcL (0.0-0.2) 07/29/17 09:33 Sodium 139 mEq/L (136-145) 07/29/17 09:33 Potassium 4.0 mEq/L (3.5-4.5) 07/29/17 09:33 Chloride 104 mEq/L (98-109) 07/29/17 09:33 Carbon Dioxide 20 mEq/L (19-29) 07/29/17 09:33 BUN 30 mg/dL (8-26) H 07/29/17 09:33 Creatinine 1.59 mg/dL (0.72-1.25) H 07/29/17 09:33 Est GFR ( Amer) 51 (> 60) L 07/29/17 09:33 Est GFR (Non-Af Amer) 42 (> 60) L 07/29/17 09:33 BUN/Creatinine Ratio 19 (6-26) 07/29/17 09:33 Glucose 259 mg/dL (70-99) H 07/29/17 09:33 Calculated Osmolality 303 (280-300) H 07/29/17 09:33 Lactic Acid 2.4 mmol/L (0.5-2.2) H 07/29/17 09:33 Calcium 9.2 mg/dL (8.6-10.8) 07/29/17 09:33 Troponin I 0.02 ng/mL (0-0.03) 07/29/17 09:33 B-Natriuretic Peptide 878 pg/mL (0-100) H 07/29/17 09:33 Urine Color Yellow (Yellow) 07/29/17 09:43 Urine Clarity Clear (Clear) 07/29/17 09:43 Urine pH 6.5 pH Units (5.0-8.0) 07/29/17 09:43 Ur Specific Mcgrady 1.019 (1.010-1.025) 07/29/17 09:43 Urine Protein 30 mg/dL (Neg-Trace) H 07/29/17 09:43 Urine Glucose (UA) 250 mg/dL (Normal) H 07/29/17 09:43 Urine Ketones Negative mg/dL (Negative) 07/29/17 09:43 Urine Blood Negative (Negative) 07/29/17 09:43 Urine Nitrite Negative (Negative) 07/29/17 09:43 Urine Bilirubin Negative (Negative) 07/29/17 09:43 Urine Urobilinogen Normal mg/dL (Normal) 07/29/17 09:43 Ur Leukocyte Esterase Negative (Negative) 07/29/17 09:43 Urine Microscopic RBC 0-3 per hpf (0-3) 07/29/17 09:43 Urine Microscopic WBC 0-3 per hpf (0-3) 07/29/17 09:43 Ur Squamous Epith Cells Few per lpf (None-Few) 07/29/17 09:43 Urine Bacteria None Seen per hpf (None-Few) 07/29/17 09:43 Hyaline Casts None Seen per lpf (None-Few) 07/29/17 09:43 Ur Culture Indicated? NO (NO) 07/29/17 09:43 - Radiology Data Radiology results reviewed: Yes I reviewed the patient's radiology results. Laboratory Last Values WBC 16.4 K/mcL (4.3-11.1) H 07/29/17 09:33 RBC 4.36 M/mcL (4.19-5.50) 07/29/17 09:33 Hgb 12.0 g/dL (12.9-16.9) L 07/29/17 09:33 Hct 37.4 % (37.5-50.1) L 07/29/17 09:33 MCV 85.8 fL (83.0-100.0) 07/29/17 09:33 MCH 27.5 pg (28.0-33.3) L 07/29/17 09:33 MCHC 32.1 g/dL (31.6-35.5) 07/29/17 09:33 RDW 14.4 % (11.5-14.5) 07/29/17 09:33 Plt Count 243 K/mcL (140-400) 07/29/17 09:33 MPV 11.0 fL (9.4-12.4) 07/29/17 09:33 Immature Gran % 0.4 % (0-4) 07/29/17 09:33 Seg Neutrophils % 82.3 % 07/29/17 09:33 Lymphocytes % 9.0 % 07/29/17 09:33 Monocytes % 5.7 % 07/29/17 09:33 Eosinophils % 1.9 % 07/29/17 09:33 Basophils % 0.7 % 07/29/17 09:33 Neutrophils # 13.5 K/mcL (1.6-8.9) H 07/29/17 09:33 Lymphocytes # 1.5 K/mcL (0.6-4.6) 07/29/17 09:33 Monocytes # 0.9 K/mcL (0.0-1.3) 07/29/17 09:33 Eosinophils # 0.3 K/mcL (0.0-0.6) 07/29/17 09:33 Basophils # 0.1 K/mcL (0.0-0.2) 07/29/17 09:33 Sodium 139 mEq/L (136-145) 07/29/17 09:33 Potassium 4.0 mEq/L (3.5-4.5) 07/29/17 09:33 Chloride 104 mEq/L (98-109) 07/29/17 09:33 Carbon Dioxide 20 mEq/L (19-29) 07/29/17 09:33 BUN 30 mg/dL (8-26) H 07/29/17 09:33 Creatinine 1.59 mg/dL (0.72-1.25) H 07/29/17 09:33 Est GFR ( Amer) 51 (> 60) L 07/29/17 09:33 Est GFR (Non-Af Amer) 42 (> 60) L 07/29/17 09:33 BUN/Creatinine Ratio 19 (6-26) 07/29/17 09:33 Glucose 259 mg/dL (70-99) H 07/29/17 09:33 Calculated Osmolality 303 (280-300) H 07/29/17 09:33 Lactic Acid 2.4 mmol/L (0.5-2.2) H 07/29/17 09:33 Calcium 9.2 mg/dL (8.6-10.8) 07/29/17 09:33 Troponin I 0.02 ng/mL (0-0.03) 07/29/17 09:33 B-Natriuretic Peptide 878 pg/mL (0-100) H 07/29/17 09:33 Urine Color Yellow (Yellow) 07/29/17 09:43 Urine Clarity Clear (Clear) 07/29/17 09:43 Urine pH 6.5 pH Units (5.0-8.0) 07/29/17 09:43 Ur Specific Mcgrady 1.019 (1.010-1.025) 07/29/17 09:43 Urine Protein 30 mg/dL (Neg-Trace) H 07/29/17 09:43 Urine Glucose (UA) 250 mg/dL (Normal) H 07/29/17 09:43 Urine Ketones Negative mg/dL (Negative) 07/29/17 09:43 Urine Blood Negative (Negative) 07/29/17 09:43 Urine Nitrite Negative (Negative) 07/29/17 09:43 Urine Bilirubin Negative (Negative) 07/29/17 09:43 Urine Urobilinogen Normal mg/dL (Normal) 07/29/17 09:43 Ur Leukocyte Esterase Negative (Negative) 07/29/17 09:43 Urine Microscopic RBC 0-3 per hpf (0-3) 07/29/17 09:43 Urine Microscopic WBC 0-3 per hpf (0-3) 07/29/17 09:43 Ur Squamous Epith Cells Few per lpf (None-Few) 07/29/17 09:43 Urine Bacteria None Seen per hpf (None-Few) 07/29/17 09:43 Hyaline Casts None Seen per lpf (None-Few) 07/29/17 09:43 Ur Culture Indicated? NO (NO) 12/05/17 09:43 Chest X-Ray 07/29/17 09:09 IMPRESSION: 1. Question of a small left pleural effusion. 2. Emphysema. D/ / Amilcar Jaeger MD / Amilcar Jaeger MD Interpreting Provider: Amilcar Jaeger MD - EKG Data EKG attestation: Yes I reviewed and interpreted this EKG. EKG shows normal: Reports: sinus rhythm Rate: Reports: normal Rhythm: Reports: NSR K[place]y/QRS: Reports: IVCD When compared to previous EKG there are: no significant changes Interpretation: Reports: unchanged when compared to prior tracing (date)
[2017-07-29 09:43] LABS: Basophils # 0.1 K/mcL (0.0-0.2); Basophils % 0.7 %; Eosinophils # 0.3 K/mcL (0.0-0.6); Eosinophils % 1.9 %; Hematocrit 37.4 % (37.5-50.1); Immature Granulocytes % 0.4 % (0-4); Lymphocytes # 1.5 K/mcL (0.6-4.6); Mean Corpuscular HGB Conc 32.1 g/dL (31.6-35.5); Mean Corpuscular Hemoglobin 27.5 pg (28.0-33.3); Mean Corpuscular Volume 85.8 fL (83.0-100.0); Monocytes # 0.9 K/mcL (0.0-1.3); Monocytes % 5.7 %; Neutrophils # 13.5 K/mcL (1.6-8.9); Platelet Count 243 K/mcL (140-400); Red Blood Count 4.36 M/mcL (4.19-5.50); Red Cell Distribution Width 14.4 % (11.5-14.5); Segmented Neutrophils % 82.3 %
[2017-07-29 09:53] LABS: Bilirubin,Urine Negative (Negative); Blood,Urine Negative (Negative); Clarity,Urine Clear (Clear); Color,Urine Yellow (Yellow); Glucose,Urine (UA) 250 mg/dL (Normal); Ketones,Urine Negative (Negative); Leukocyte Esterase,Urine Negative (Negative); Nitrite,Urine Negative (Negative); PH,Urine 6.5 pH Units (5.0-8.0); Protein,Urine 30 mg/dL (Neg-Trace); Specific Gravity,Urine 1.019 (1.010-1.025); Urobilinogen,Urine Normal (Normal)
[2017-07-29 09:55] LABS: Calcium 9.2 mg/dL (8.6-10.8)
[2017-07-29 09:56] LABS: Bacteria,Urine None Seen per hpf (None-Few); Hyaline Casts,Urine None Seen per lpf (None-Few); RBC,Urine 0-3 per hpf (0-3); Squamous Epithelial Cell,Urine Few per lpf (None-Few); WBC,Urine 0-3 per hpf (0-3)
[2017-07-29] MEDS ORDERED: Piperacillin/Tazobactam 3.375 GM in D5% in Water (Mini-Bag+) 100 ML IVPB ONE (10:48)
[2017-07-29] MEDS ORDERED: Vancomycin 1,000 MG in D5% in Water 250 ML IVPB ONE (10:48)
--- NOTE | 2017-07-29 11:39 | Emergency Department Note ---
START Narrative - START START: I have personally performed a face to face evaluation on this patient. I have reviewed and agree with the care plan. History and Exam by me shows Shortness of breath with clear lungs. Some symptoms to suggest possibility of pneumonia, but no pneumonia visible on x-ray. He is relatively immobile, borderline tachycardic. Suspicion for PE is low, d-dimer is elevated, but not over age-adjusted threshold. PE ruled out.:
[2017-07-29] MEDS ORDERED: Acetaminophen 325 MG TABLET PO PRN (12:00)
[2017-07-29] MEDS ORDERED: Naloxone 0.4 MG/ML INJ IVP PRN (12:00)
[2017-07-29] MEDS ORDERED: Furosemide 20 MG/2 ML VIAL IVP ONE (12:25)
[2017-07-29] MEDS ORDERED: Heparin 25,000 UNIT/500 ML D5W 25,000 UNIT/500 ML MLS IVC SCH (12:30)
[2017-07-29] MEDS ORDERED: *HR* Heparin 5,000 UNIT/ML VIAL IVP PRN ×2 (12:30)
[2017-07-29] MEDS ORDERED: *HR* Heparin 5,000 UNIT/ML VIAL IVP ONE (12:30)
[2017-07-29] MEDS ORDERED: Dextrose Gel 15 GM PO PRN ×2 (12:32)
[2017-07-29] MEDS ORDERED: D5% in Water 1,000 ML IVC PRN (12:32)
[2017-07-29] MEDS ORDERED: *HR* Dextrose 50 % in Water (Syg) 50 ML SYRINGE IVP PRN (12:32)
--- NOTE | 2017-07-29 12:42 | Internal Med History&Physical ---
Date of Encounter: 07/29/17 Time of Encounter: 12:42 Assessment and Plan (1) CHF (congestive heart failure) Current visit: Yes Status: Acute Patient has had a history of three-vessel CABG 2016 last echo revealed EF of 60 % with mild diastolic dysfunction. He has been experiencing cough increasing shortness of breath or extremity swelling in his right leg and orthopnea. Small left pleural effusion on chest x-ray We will diurese with Lasix Monitor intake and output daily weights Placed on fluid restriction 1500 mL's Low-sodium diet Patient did have tachypnea as well as right leg swelling-elevated d-dimer at 766 he is not very mobile. There is concern for possible PE. Patient is unable to lie flat at this time. We will diuresis patient overnight and we will obtain V/Q scan in the a.m. due to elevated creatinine we are unable to perform CTA. He has hx of GI bleed and does not want to be anticoagulated Qualifiers: Congestive heart failure type: diastolic Congestive heart failure chronicity: acute on chronic Qualified Code(s): I50.33 - Acute on chronic diastolic (congestive) heart failure (2) JAMAL (acute kidney injury) Current visit: Yes Status: Acute Patient's creatinine is 1.59 which is elevated from previous appears she is around 1.2. Suspect this is related to heart failure. We will diuresis patient monitor creatinine closely Monitor intake and output daily weights Avoid nephrotoxins (3) Diabetes Current visit: No Status: Chronic Accu-Cheks before meals at bedtime with slight scale insulin continue with basal insulin Diabetic diet Qualifiers: Diabetes mellitus type: type 2 Diabetes mellitus complication status: with circulatory complication Diabetes mellitus complication detail: with other circulatory complications Diabetes mellitus intermediate insulin use: with intermediate use Qualified Code(s): E11.59 - Type 2 diabetes mellitus with other circulatory complications; Z79.4 - assisted (current) use of insulin (4) Hypertension Current visit: No Status: Chronic We will hold lisinopril for now due to elevated creatinine-we will diuresis patient with Lasix and resume lisinopril once patient is back to baseline Qualifiers: Hypertension type: essential hypertension Qualified Code(s): I10 - Essential (primary) hypertension (5) DVT prophylaxis Current visit: Yes Status: Acute SCD Internal Medicine - H&P: HPI Chief complaint: SOB Admitted From: Emergency Dept Plans for Post Hospital Care: Home History of present illness: Mr. Balderrama is a 82 year old male past medical history of [place] CABG 3 vessel, hypertension diabetes C KD stage III diastolic heart failure. According to the patient he has been experiencing increasing shortness of breath on exertion as well as a nonproductive cough for the past several weeks. He has not been able to sleep at night and may times he sleeps in a chair. He denies any unusual weight loss or weight gain however he does have lower extremity swelling. Swelling occurring mostly in right leg more than left. He denies any abdominal pain nausea or vomiting hematemesis melena or hematochezia. He denies any fever or chills however his reports that he was experiencing cold sweats this morning. He denies any history of COPD or oxygen use at home- He did present to an urgent care yesterday who advised him to go to the ER if no improvement in symptoms. Patient presented to the ER with the above complaints. According to ER records upon presentation his sats were 96% on room , he was tachypneic 22. Chest x-ray did show a left pleural effusion lab work did not reveal leukocytosis elevated lactate elevated creatinine and BMP. D- dimer was obtained and it was also elevated. He was admitted for further workup and evaluation. Does not appear to be in respiratory distress he is hemodynamically stable and denies any chest pain at this time. I did review this case with Dr. Sauceda who agrees with plan. Past Med Surg Social Fam HX - Past Medical History Medical history: coronary artery disease, diabetes, GI bleed, hypertension, myocardial infarction Psychiatric history: no psych history - Past Surgical History Surgical History: angioplasty/stent (multiple ), cholecystectomy, coronary bypass (CABG) - Social History Smoking Status: Former smoker Smokeless Tobacco Status: No Alcohol use: none Drug use: none - Family History Brother Living Status: Still Living Hx Family Endocrine Disorder: Yes (DM) Internal Medicine - H&P: Meds GlipiZIDE XL (24 HR) [Glucotrol XL] 5 mg PO BID 08/16/15 [History] Insulin DETEMIR [Levemir] 20 unit SQ BID 08/16/15 [History] Promethazine [Phenergan] 25 mg PO BID PRN 08/16/15 [History] Acetaminophen [Tylenol] 650 mg PO Q6HR PRN #30 tablet 08/09/16 [Rx] Nitroglycerin [Nitrostat] 0.4 mg SL Q5M #1 vial 05/26/17 [Rx] Potassium Chloride 10 meq PO DAILY #30 tab.er.prt 05/26/17 [Rx] Lisinopril [Zestril] 20 mg PO BID 06/18/17 [History] Metoprolol [Lopressor] 50 mg PO BID 06/18/17 [History] Ranitidine HCl [Heartburn Relief] 150 mg PO BID 06/18/17 [History] hydroCHLOROthiazide [Hydrochlorothiazide] 25 mg PO DAILY 06/18/17 [History] metFORMIN [Glucophage] 500 mg PO BID 06/18/17 [History] OxyCODONE/APAP 5/325 [Percocet 5/325 MG] 1 tab PO BID PRN #14 tablet 06/27/17 [ Rx] Pravastatin Sodium [Pravachol] 20 mg PO HS #30 tablet 06/27/17 [Rx] Doxazosin Mesylate [Cardura] 2 mg PO HS 07/29/17 [History] 3 Allergy/AdvReac Type Severity Reaction Status Date / Time morphine Allergy See Verified 07/29/17 08:43 Comments All Systems PM: A 10-system review of systems was performed and is negative for pertinent findings except as documented above in the HPI. - Constitutional Constitutional: no chills, no fever(s), no night sweats - EENT Eyes: no change in vision, no discharge, no pain, no photophobia Ears: no ear discharge, no ear pain, no tinnitus Nose, mouth and throat: no dysphagia, no nasal discharge, no neck pain, no sore throat - Cardiovascular Cardiovascular ROS IM: dyspnea on exertion, edema, no chest pain, no diaphoresis , no dyspnea, no lightheadedness, no palpitations, no syncope - Respiratory Respiratory: cough, dyspnea on exertion, no dyspnea, no wheezing, no excessive phlegm production - Gastrointestinal Gastrointestinal: no abdominal pain, no diarrhea, no hematemesis, no hematochezia, no melena, no nausea, no vomiting - Musculoskeletal Musculoskeletal ROS IM: no numbness, no tingling - Integumentary Integumentary IM: no rash, no unusual bruising - Neurological Neurological ROS: no confusion, no convulsions, no focal weakness, no numbness, no tingling, no tremor(s) - Hematologic/Lymphatic Hematologic/Lymphatic: no easy bruising - Constitutional Vitals: Temp Pulse Resp BP Pulse Ox 98.1 F 84 15 174/83 98 07/29/17 12:40 07/29/17 12:40 07/29/17 12:40 07/29/17 12:40 07/29/17 12:40 General appearance: Present: A&O X 3 - Head Head exam: Present: atraumatic, normocephalic - Eye Eye exam: Present: PERRL, conjuntiva pink, sclera anicteric Pupils: Present: PERRL - Neck Neck exam general surgery: Present: supple, trachea midline. Absent: lymphadenopathy - Respiratory Respiratory exam: Present: CTAB. Absent: accessory muscle use, rales, rhonchi, wheezes - Cardiovascular Cardiovascular exam: Present: RRR, +S1, +S2. Absent: diastolic murmur, gallop, rubs, systolic murmur - GI/Abdominal GI/Abdominal exam: Present: normal bowel sounds, soft, no peritoneal signs. Absent: distended, tenderness - Extremities Exam Extremities exam: Present: pedal edema, warm, radial pulses palpable and symmetrical. Absent: calf tenderness, cyanotic - Neurological Exam Neurological exam: Present: CN II-XII intact, oriented X3, no focal deficits. Absent: pronater drift, facial droop, speech deficit - Skin Skin exam: Present: dry, intact Internal Med - H&P Results - Labs CBC & Chem 7: 07/29/17 12:43 07/29/17 09:33 - EKG Data EKG shows normal: sinus rhythm - EKG Data Prior EKG available for review: yes When compared to previous EKG: there is no significant change - Diagnostic Studies Other Images Additional comments: Chest X-Ray 07/29/17 09:09 IMPRESSION: 1. Question of a small left pleural effusion. 2. Emphysema. D/ / Amilcar Jaeger MD / Amilcar Jaeger MD Interpreting Provider: Amilcar Jaeger MD
[2017-07-29] MEDS ORDERED: Nitroglycerin 0.4 MG TAB.SUBL SL PRN (12:45)
[2017-07-29 13:04] LABS: Hematocrit 34.4 % (37.5-50.1); Mean Corpuscular Hemoglobin 27.5 pg (28.0-33.3); Mean Platelet Volume 11.4 fL (9.4-12.4); Platelet Count 219 K/mcL (140-400); Red Cell Distribution Width 14.5 % (11.5-14.5)
[2017-07-29 13:14] LABS: INR 1.2; Prothrombin Time 12.5 Seconds (9.4-12.1)
[2017-07-29] MEDS ORDERED: Piperacillin/Tazobactam 3.375 GM/200 ML BAG IVPB ONE (16:00)
[2017-07-29] MEDS: *HR* OxyCODONE/APAP 5/325 TABLET PO PRN (18:05)
--- NOTE | 2017-07-29 19:38 | Event Note ---
Date of Encounter: 07/29/17 Time of Encounter: 17:00 Discussed with ADEBAYO and agree with assessment and plan as above We will continue treatment for CHF
[2017-07-29] MEDS: Insulin LISPRO 300 UNITS/3 ML VIAL SQ SCH ×2 (19:43→21:04)
[2017-07-29] MEDS: Insulin DETEMIR 100 UNIT/ML X5UNITS SQ SCH (21:08)
[2017-07-30 05:01] LABS: Calcium 8.6 mg/dL (8.6-10.8); Magnesium 1.9 mg/dL (1.6-2.6); Potassium 3.6 mEq/L (3.5-4.5)
[2017-07-30 06:32] LABS: Basophils # 0.1 K/mcL (0.0-0.2); Basophils % 0.8 %; Eosinophils # 0.4 K/mcL (0.0-0.6); Eosinophils % 3.5 %; Hematocrit 32.2 % (37.5-50.1); Hemoglobin 10.2 g/dL (12.9-16.9); Immature Granulocytes % 0.3 % (0-4); Lymphocytes # 1.8 K/mcL (0.6-4.6); Lymphocytes % 17.7 %; Mean Corpuscular HGB Conc 31.7 g/dL (31.6-35.5); Mean Corpuscular Hemoglobin 27.4 pg (28.0-33.3); Mean Corpuscular Volume 86.6 fL (83.0-100.0); Mean Platelet Volume 11.6 fL (9.4-12.4); Monocytes # 0.8 K/mcL (0.0-1.3); Monocytes % 7.7 %; Neutrophils # 7.2 K/mcL (1.6-8.9); Platelet Count 202 K/mcL (140-400); Red Blood Count 3.72 M/mcL (4.19-5.50); Red Cell Distribution Width 14.6 % (11.5-14.5)
--- NOTE | 2017-07-30 07:22 | Electrocardiograph Report ---
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
[2017-07-30] MEDS: Insulin DETEMIR 100 UNIT/ML X5UNITS SQ SCH ×2 (08:20→20:50)
[2017-07-30] MEDS: Pantoprazole 40 MG VIAL IVP SCH (08:20)
[2017-07-30] MEDS: Furosemide 20 MG/2 ML VIAL IVP SCH (08:20)
[2017-07-30] MEDS: Insulin LISPRO 300 UNITS/3 ML VIAL SQ SCH ×4 (08:20→20:51)
--- NOTE | 2017-07-30 11:14 | Internal Med Progress Note ---
Date of Encounter: 07/30/17 Time of Encounter: 09:00 - Assessment and plan (1) Diabetes Current Visit: No Status: Chronic Assessment and plan: c/w levemir 20 units BID. c/w SSI. c/w Accuchecks Qualifiers: Diabetes mellitus type: type 2 Diabetes mellitus complication status: with circulatory complication Diabetes mellitus complication detail: with other circulatory complications Diabetes mellitus group home insulin use: with group home use Qualified Code(s): E11.59 - Type 2 diabetes mellitus with other circulatory complications; Z79.4 - nursing home (current) use of insulin (2) CHF (congestive heart failure) Current Visit: Yes Status: Acute Assessment and plan: Acute diastolic exacerbation of HF. c/w lasix 20 mg IV today. Monitor I&O's Try to wean off O2. c/w nebs. Patient is on a BB as well. Qualifiers: Congestive heart failure type: diastolic Congestive heart failure chronicity: acute on chronic Qualified Code(s): I50.33 - Acute on chronic diastolic (congestive) heart failure (3) Chronic kidney disease (CKD) Current Visit: No Status: Chronic Qualifiers: Chronic kidney disease stage: stage 3 (moderate) Qualified Code(s): N18.3 - Chronic kidney disease, stage 3 (moderate) (4) Hypertension Current Visit: No Status: Chronic Assessment and plan: c/w metoprolol 50 mg BID. We are holding HCTZ and Lisinopril today due to JAMAL on CKD. will add hydralazine to be used PRN Qualifiers: Hypertension type: essential hypertension Qualified Code(s): I10 - Essential (primary) hypertension (5) DVT prophylaxis Current Visit: Yes Status: Acute Assessment and plan: Add heparin SQ - Subjective Interval history: No acute events. Feels well. Still needing O2 2-3 L. No O2 at home. No cough - Constitutional Vitals: Temp Pulse Resp BP Pulse Ox 97.8 F 79 16 174/84 94 07/30/17 08:15 07/30/17 08:15 07/30/17 08:15 07/30/17 08:15 07/30/17 08:15 General appearance: Present: A&O X 3 Exam: GEN: NAD CVS: RRR. S1, S2, No m/r/g RESP: Diminished. Bibasilar crackles ABD: Sot, NT, ND, +BS EXT: No edema. 2+ DP NEURO: Nonfocal Internal Medicine: Result - Labs CBC & Chem 7: 07/30/17 04:16 07/30/17 04:16 Labs: Short CBC 07/30/17 Range/Units 04:16 WBC 10.3 (4.3-11.1) K/mcL Hgb 10.2 L (12.9-16.9) g/dL Hct 32.2 L (37.5-50.1) % Plt Count 202 (140-400) K/mcL Neutrophils # 7.2 (1.6-8.9) K/mcL BMP 07/30/17 04:16 Sodium 140 Potassium 3.6 Chloride 104 Carbon Dioxide 23 BUN 30 H Creatinine 1.62 H Glucose 137 H Calcium 8.6 Cardiac Enzymes 07/29/17 Range/Units 21:49 Troponin I 0.02 (0-0.03) ng/mL - ABG Interpretation ABG results: PT/INR, D-dimer PT 12.5 Seconds (9.4-12.1) H 07/29/17 12:43 D-Dimer 766 ng/mLFEU (0-500) H 07/29/17 09:33 - Impressions Impressions Pulmonary Perfusion Imaging 07/30/17 08:00 IMPRESSION: Very low probability for pulmonary embolus. D/ / Francisco J Phelps MD / Francisco J Phelps MD Interpreting Provider: Francisco J Phelps MD Consult Discharge Plan - Plan Referrals: Shelli Lobo MD [Primary Care Provider] - 08/15/17 10:00 am
[2017-07-30] MEDS ORDERED: Ipratropium/Albuterol Neb 3 ML IH PRN (11:21)
[2017-07-30] MEDS: *HR* Heparin 5,000 UNIT/ML VIAL SQ SCH ×2 (15:31→20:46)
[2017-07-30] MEDS: *HR* OxyCODONE/APAP 5/325 TABLET PO PRN (19:05)
[2017-07-31] MEDS: *HR* OxyCODONE/APAP 5/325 TABLET PO PRN (00:18)
[2017-07-31] MEDS: *HR* Heparin 5,000 UNIT/ML VIAL SQ SCH (05:21)
[2017-07-31] MEDS ORDERED: Ondansetron ODT 4 MG TAB.RAPDIS SL ONE (06:28)
[2017-07-31 08:01] VITALS: BP 166/86
[2017-07-31] MEDS: Insulin LISPRO 300 UNITS/3 ML VIAL SQ SCH (09:25)
[2017-07-31] MEDS: Pantoprazole 40 MG VIAL IVP SCH (09:26)
[2017-07-31] MEDS: Insulin DETEMIR 100 UNIT/ML X5UNITS SQ SCH (09:26)
[2017-07-31] MEDS: Furosemide 20 MG/2 ML VIAL IVP SCH (09:26)
[2017-07-31] MEDS ORDERED: Famotidine 20 MG TABLET PO SCH (10:45)
[2017-07-31] MEDS ORDERED: hydroCHLOROthiazide 25 MG TABLET PO SCH (10:45)
[2017-07-31] MEDS ORDERED: Lisinopril 20 MG TABLET PO SCH (10:45)
--- NOTE | 2017-07-31 10:49 | Discharge Summary ---
Date of Encounter: 08/01/17 Time of Encounter: 10:45 - Discharge Diagnosis (1) Diabetes Priority: Secondary Status: Chronic Qualifiers: Diabetes mellitus type: type 2 Diabetes mellitus complication status: with circulatory complication Diabetes mellitus complication detail: with other circulatory complications Diabetes mellitus intermediate teacher insulin use: with group home use Qualified Code(s): E11.59 - Type 2 diabetes mellitus with other circulatory complications; Z79.4 - watermaster (current) use of insulin (2) CHF (congestive heart failure) Priority: Primary Status: Acute Qualifiers: Congestive heart failure type: diastolic Congestive heart failure chronicity: acute on chronic Qualified Code(s): I50.33 - Acute on chronic diastolic (congestive) heart failure (3) Chronic kidney disease (CKD) Priority: Secondary Status: Chronic Qualifiers: Chronic kidney disease stage: stage 3 (moderate) Qualified Code(s): N18.3 - Chronic kidney disease, stage 3 (moderate) (4) Hypertension Priority: Secondary Status: Chronic Qualifiers: Hypertension type: essential hypertension Qualified Code(s): I10 - Essential (primary) hypertension - Discharge Medications Prescriptions: Furosemide [Lasix] 20 mg PO DAILY #30 tablet Home Medications: GlipiZIDE XL (24 HR) [Glucotrol XL] 5 mg PO BID 08/16/15 [History] Insulin DETEMIR [Levemir] 20 unit SQ BID 08/16/15 [History] Promethazine [Phenergan] 25 mg PO BID PRN 08/16/15 [History] Acetaminophen [Tylenol] 650 mg PO Q6HR PRN #30 tablet 08/09/16 [Rx] Nitroglycerin [Nitrostat] 0.4 mg SL Q5M #1 vial 05/26/17 [Rx] Potassium Chloride 10 meq PO DAILY #30 tab.er.prt 05/26/17 [Rx] Lisinopril [Zestril] 20 mg PO BID 06/18/17 [History] Metoprolol [Lopressor] 50 mg PO BID 06/18/17 [History] Ranitidine HCl [Heartburn Relief] 150 mg PO BID 06/18/17 [History] hydroCHLOROthiazide [Hydrochlorothiazide] 25 mg PO DAILY 06/18/17 [History] metFORMIN [Glucophage] 500 mg PO BID 06/18/17 [History] OxyCODONE/APAP 5/325 [Percocet 5/325 MG] 1 tab PO BID PRN #14 tablet 06/27/17 [ Rx] Pravastatin Sodium [Pravachol] 20 mg PO HS #30 tablet 06/27/17 [Rx] Doxazosin Mesylate [Cardura] 2 mg PO HS 07/29/17 [History] Furosemide [Lasix] 20 mg PO DAILY #30 tablet 07/31/17 [Rx] Allergies/Adverse Reactions: 3 Allergy/AdvReac Type Severity Reaction Status Date / Time morphine Allergy See Verified 07/29/17 08:43 Comments Date of admission: 07/29/17 15:36 Primary care physician: Shelli Fisher - Patient Status Disposition: Home, Self-Care - Discharge Instructions Instructions: Furosemide (By mouth) Follow Up With: Shelli Lobo MD [Primary Care Provider] - 08/15/17 10:00 am Additional Instructions: Take lasix 20 mg if you weigh >190 Ibs in the morning - Diet and Activity Activity: resume usual activities as tolerated Diet: diabetic diet, low salt diet Hospital course: 82 year old male past medical history of PA CABG 3 vessel, hypertension diabetes C KD stage III diastolic heart failure who presented with shortness of breath with exertion and cough that was nonproductive. She had lower extremity swelling.He did present to an urgent care and recommended to come to the ER. According to ER records upon presentation his sats were 96% on room, he was tachypneic 22. Chest x-ray did show a left pleural effusion. D-dimer was obtained and it was also elevated. He was admitted for further workup and evaluation. He was ruled out for PE with low probability V/Q and had negative LE dopplers for DVT. We diuresed the patient with IV lasix. He was off O2 on day of discharge. I ended up giving him a script for lasix 20 mg to be used if weight is >190 Ibs. - Time Spent with Patient Total time spent providing and/or coordinating discharge services: - Constitutional Vitals: Temp Pulse Resp BP Pulse Ox 97.8 F 86 16 166/86 96 07/31/17 07:55 07/31/17 07:55 07/31/17 07:55 07/31/17 07:55 07/31/17 07:55 General appearance: Present: A&O X 3 Exam: GEN: NAD CVS: RRR. S1, S2, No m/r/g RESP: Dimished but clear ABD: soft, NT, ND, +BS EXT: No edema. 2+ DP NEURO: Nonfocal
--- NOTE | 2017-07-31 11:07 | Physician Discharge Referral ---
Home Health/Hosp Referral Info Transfer to: Home Health Provider in Charge Post Discharge: PCP - Diagnosis (1) Diabetes Status: Chronic (2) CHF (congestive heart failure) Status: Acute (3) Chronic kidney disease (CKD) Status: Chronic (4) Hypertension Status: Chronic (5) DVT prophylaxis Status: Acute - Respiratory Orders Smoking Cessation: Smoking cessation has been advised. For more information, call the [place] Tobacco Quit Line at 4-477-XIZX-NOW. - Services Needed Following services are medically necessary services: Physical Therapy, Occupational Therapy - Transfer Medications Prescriptions: Furosemide [Lasix] 20 mg PO DAILY #30 tablet Home Medications: GlipiZIDE XL (24 HR) [Glucotrol XL] 5 mg PO BID 08/16/15 [History] Insulin DETEMIR [Levemir] 20 unit SQ BID 08/16/15 [History] Promethazine [Phenergan] 25 mg PO BID PRN 08/16/15 [History] Acetaminophen [Tylenol] 650 mg PO Q6HR PRN #30 tablet 08/09/16 [Rx] Nitroglycerin [Nitrostat] 0.4 mg SL Q5M #1 vial 05/26/17 [Rx] Potassium Chloride 10 meq PO DAILY #30 tab.er.prt 05/26/17 [Rx] Lisinopril [Zestril] 20 mg PO BID 06/18/17 [History] Metoprolol [Lopressor] 50 mg PO BID 06/18/17 [History] Ranitidine HCl [Heartburn Relief] 150 mg PO BID 06/18/17 [History] hydroCHLOROthiazide [Hydrochlorothiazide] 25 mg PO DAILY 06/18/17 [History] metFORMIN [Glucophage] 500 mg PO BID 06/18/17 [History] OxyCODONE/APAP 5/325 [Percocet 5/325 MG] 1 tab PO BID PRN #14 tablet 06/27/17 [ Rx] Pravastatin Sodium [Pravachol] 20 mg PO HS #30 tablet 06/27/17 [Rx] Doxazosin Mesylate [Cardura] 2 mg PO HS 07/29/17 [History] Furosemide [Lasix] 20 mg PO DAILY #30 tablet 07/31/17 [Rx] Allergies/Adverse Reactions: 3 Allergy/AdvReac Type Severity Reaction Status Date / Time morphine Allergy See Verified 07/29/17 08:43 Comments Certification: Further, I certify that my clinical findings support that this patient is homebound (i.e. absences from home require considerable and taxing effort and are for medical reasons or latter day services or infrequently or short duration when for other reasons) because: Homebound Reason: Patient requires assistance of a person or device to safely leave home Attestation: My signature below is to certify that this patient is under my care and that I, or nurse practitioner, or a physician's assistant professor of biochemistry working with me, has a face-to -face encounter with this patient.
== END 2017-07-31 13:01 | disposition home or self-care (01) | DRG 291 ==
LOC: 3BNU 08:37 → EMEROO 08:37 → 3BNU 12:19
PROVIDERS: ADMIT Hospitalist; ATTEND Registered Nurse

== ENCOUNTER 2017-08-09 07:04 | Inpatient (IN) ==
--- NOTE | 2017-08-09 07:54 | Emergency Department Note ---
Disposition Clinical Impression: Acute exacerbation of congestive heart failure Qualifiers: Congestive heart failure type: diastolic Qualified Code(s): I50.33 - Acute on chronic diastolic (congestive) heart failure Disposition: Admitted As Inpatient Condition: Fair Time of Disposition: 10:28 SOB HPI - General Chief Complaint: ED Shortness of Breath/Dyspnea Stated Complaint: JULIAN Time Seen by Provider: 08/09/17 07:13 Source: patient Limitations: no limitations Nursing Notes Reviewed: Yes Vital Signs Reviewed: Yes - History of Present Illness Nontoxic-appearing 82-year-old male presents for evaluation of shortness of breath. The patient states that he was woken from sleep at approximately midnight by the sensation of shortness of breath. He states that he has had intermittent episodes like this in the past, however tonight was worse. He also describes intermittent episodes of substernal chest pain however denies any with this current episode of dyspnea. He describes worsening difficulty breathing while lying flat. He does state he has noticed some increased peripheral lower extremity edema bilaterally as well. He denies any known obvious recent weight gain. He denies any cough or sputum production. He denies any hemoptysis. He denies any fever, nausea, vomiting, or abdominal pain. Pt Subjective Complaint: shortness of breath Onset (ago): hour(s) (since midnight) Improves with: nothing Worsens with: lying flat, exertion Associated symptoms: Reports: chest pain (intermittent, none with current episode). Denies: pain with inspiration, fever, cough, wheezing, sputum production, hemoptysis, nausea/vomiting, syncope, abdominal pain - Related Data Home Medications Medication Instructions Recorded Confirmed GlipiZIDE XL (24 HR) [Glucotrol XL] 5 mg PO BID 08/16/15 08/09/17 Insulin DETEMIR [Levemir] 20 unit SQ BID 08/16/15 08/09/17 Promethazine [Phenergan] 25 mg PO BID PRN 08/16/15 08/09/17 Lisinopril [Zestril] 20 mg PO BID 06/18/17 08/09/17 Metoprolol [Lopressor] 50 mg PO BID 06/18/17 08/09/17 Ranitidine HCl [Heartburn Relief] 150 mg PO BID 06/18/17 08/09/17 hydroCHLOROthiazide 25 mg PO DAILY 06/18/17 08/09/17 [Hydrochlorothiazide] metFORMIN [Glucophage] 500 mg PO BID 06/18/17 08/09/17 Doxazosin Mesylate [Cardura] 2 mg PO HS 07/29/17 08/09/17 Previous Rx's Medication Instructions Recorded Acetaminophen [Tylenol] 650 mg PO Q6HR PRN #30 tablet 08/09/16 Nitroglycerin [Nitrostat] 0.4 mg SL Q5M #1 vial 05/26/17 Potassium Chloride 10 meq PO DAILY #30 tab.er.prt 05/26/17 OxyCODONE/APAP 5/325 [Percocet 1 tab PO BID PRN #14 tablet 06/27/17 5/325 MG] Pravastatin Sodium [Pravachol] 20 mg PO HS #30 tablet 06/27/17 Furosemide [Lasix] 20 mg PO DAILY #30 tablet 07/31/17 Allergies Allergy/AdvReac Type Severity Reaction Status Date / Time morphine Allergy See Verified 08/09/17 07:10 Comments All systems ED: reviewed and negative except as stated. Constitutional: Denies: fever, chills, weakness, weight change Eyes: Denies: eye pain, eye discharge, vision change ENT ED: Denies: ear pain, throat pain, dental pain, hearing loss, epistaxis, congestion, dysphagia Cardiovascular: Reports: as per HPI, orthopnea. Denies: chest pain, palpitations, dyspnea on exertion, edema, syncope Respiratory: Reports: as per HPI, dyspnea. Denies: cough, wheezes, hemoptysis, stridor Gastrointestinal: Denies: abdominal pain, nausea, vomiting, diarrhea, constipation, hematemesis, melena, hematochezia Genitourinary: Denies: urgency, dysuria, frequency, hematuria Musculoskeletal: Denies: back pain, neck pain, arthralgia, myalgia Integumentary: Denies: rash, abrasion, lesions Neurological: Denies: headache, weakness, numbness, paresthesias, confusion, abnormal gait, vertigo Psychiatric: Denies: anxiety, depression, suicidal thoughts, homicidal thoughts , auditory hallucinations, visual hallucinations Endocrine: Denies: fatigue Hematological/Lymphatic: Denies: easy bleeding, easy bruising Allergic/Immunologic: Denies: facial swelling, urticaria Past Medical History - Past Medical History Attestation: Yes The following information was validated with the patient. Source: patient, nursing notes reviewed Medical history: Reports: coronary artery disease, diabetes, GI bleed, hypertension, myocardial infarction Surgical history: Reports: angioplasty/stent (multiple ), cholecystectomy, coronary bypass (CABG) Psychiatric history: Reports: no psych history - Social History Smoking Status: Former smoker Smokeless Tobacco Status: No Alcohol use: Reports: none Drug use: Reports: none Physical Exam - General Limitations: no limitations General appearance: alert - Head Head exam: atraumatic, normocephalic, normal inspection - Eye Eye exam: Present: normal appearance, PERRL, EOMI. Absent: nystagmus - ENT ENT exam: mucous membranes moist - Neck Neck exam: Present: normal inspection, full ROM, trachea midline. Absent: lymphadenopathy - Chest Chest inspection: Present: normal inspection, symmetric chest wall rise - Respiratory Respiratory exam: Present: normal lung sounds bilaterally. Absent: respiratory distress, wheezes, stridor, accessory muscle use, prolonged expiratory phase - Cardiovascular Cardiovascular exam: Present: regular rate, normal rhythm, normal heart sounds - Abdominal Exam Abdominal exam: Present: soft, Non-Tender, normal bowel sounds - Extremities Exam Extremities exam: Present: full ROM, pedal edema (+1 pretibial edema noted bilaterally). Absent: tenderness - Neurological Exam Neurological exam: Present: alert, oriented X3 - Psychiatric Psychiatric exam: Present: normal affect, normal mood - Skin Skin exam: Present: warm, dry, intact, normal color Course Course Narrative: 1020: I spoke with Dr. Browning, hospitalist construction carpenter. He has accepted the patient for admission to his care for further treatment of acute exacerbation of congestive heart failure. I have discussed this patient's case with Dr. Marilyn Du. She has had a [id number] evaluation with the patient and agrees with this plan. Vital Signs Temperature 97.7 F 08/09/17 07:10 Pulse Rate 87 08/09/17 07:10 Respiratory Rate 24 08/09/17 07:10 Blood Pressure 185/92 08/09/17 07:10 O2 Sat by Pulse Oximetry 95 08/09/17 07:10 Temperature 97.5 F L 08/09/17 12:06 Pulse Rate 81 08/09/17 12:06 Respiratory Rate 19 08/09/17 12:06 Blood Pressure 172/85 08/09/17 12:06 O2 Sat by Pulse Oximetry 94 08/09/17 12:06 Oxygen Delivery Oxygen Delivery Nasal Cannula Shortness of Breath/Dyspnea - Medical Records Medical records reviewed: Yes I reviewed the patient's medical records. - Lab Data Lab results reviewed: Yes I reviewed the patient's lab results. Lab results narrative: Laboratory Last Values WBC 10.5 K/mcL (4.3-11.1) 08/09/17 08:30 RBC 4.13 M/mcL (4.19-5.50) L 08/09/17 08:30 Hgb 11.3 g/dL (12.9-16.9) L 08/09/17 08:30 Hct 36.0 % (37.5-50.1) L 08/09/17 08:30 MCV 87.2 fL (83.0-100.0) 08/09/17 08:30 MCH 27.4 pg (28.0-33.3) L 08/09/17 08:30 MCHC 31.4 g/dL (31.6-35.5) L 08/09/17 08:30 RDW 14.6 % (11.5-14.5) H 08/09/17 08:30 Plt Count 222 K/mcL (140-400) 08/09/17 08:30 MPV 11.0 fL (9.4-12.4) 08/09/17 08:30 Immature Gran % 0.2 % (0-4) 08/09/17 08:30 Seg Neutrophils % 75.7 % 08/09/17 08:30 Lymphocytes % 14.4 % 08/09/17 08:30 Monocytes % 6.5 % 08/09/17 08:30 Eosinophils % 2.4 % 08/09/17 08:30 Basophils % 0.8 % 08/09/17 08:30 Neutrophils # 8.0 K/mcL (1.6-8.9) 08/09/17 08:30 Lymphocytes # 1.5 K/mcL (0.6-4.6) 08/09/17 08:30 Monocytes # 0.7 K/mcL (0.0-1.3) 08/09/17 08:30 Eosinophils # 0.3 K/mcL (0.0-0.6) 08/09/17 08:30 Basophils # 0.1 K/mcL (0.0-0.2) 08/09/17 08:30 Immature Plt Fraction 5.3 % (1.1-6.1) 08/09/17 08:30 Sodium 140 mEq/L (136-145) 08/09/17 08:40 Potassium 4.3 mEq/L (3.5-4.5) 08/09/17 08:40 Chloride 104 mEq/L (98-109) 08/09/17 08:40 Carbon Dioxide 27 mEq/L (19-29) 08/09/17 08:40 BUN 27 mg/dL (8-26) H 08/09/17 08:40 Creatinine 1.53 mg/dL (0.72-1.25) H 08/09/17 08:40 Est GFR ( Amer) 53 (> 60) L 08/09/17 08:40 Est GFR (Non-Af Amer) 44 (> 60) L 08/09/17 08:40 BUN/Creatinine Ratio 18 (6-26) 08/09/17 08:40 Glucose 237 mg/dL (70-99) H 08/09/17 08:40 Calculated Osmolality 303 (280-300) H 08/09/17 08:40 Lactic Acid 1.6 mmol/L (0.5-2.2) 08/09/17 09:26 Calcium 9.0 mg/dL (8.6-10.8) 08/09/17 08:40 Troponin I 0.02 ng/mL (0-0.03) 08/09/17 08:40 B-Natriuretic Peptide 511 pg/mL (0-100) H 08/09/17 08:40 Result diagrams: 08/09/17 08:30 08/09/17 08:40 Lab Results 08/09/17 08/09/17 08/09/17 Range/Units 08:30 08:40 08:40 WBC 10.5 (4.3-11.1) K/mcL RBC 4.13 L (4.19-5.50) M/mcL Hgb 11.3 L (12.9-16.9) g/dL Hct 36.0 L (37.5-50.1) % MCV 87.2 (83.0-100.0) fL MCH 27.4 L (28.0-33.3) pg MCHC 31.4 L (31.6-35.5) g/dL RDW 14.6 H (11.5-14.5) % Plt Count 222 (140-400) K/mcL MPV 11.0 (9.4-12.4) fL Immature Gran % 0.2 (0-4) % Seg Neutrophils % 75.7 % Lymphocytes % 14.4 % Monocytes % 6.5 % Eosinophils % 2.4 % Basophils % 0.8 % Neutrophils # 8.0 (1.6-8.9) K/mcL Lymphocytes # 1.5 (0.6-4.6) K/mcL Monocytes # 0.7 (0.0-1.3) K/mcL Eosinophils # 0.3 (0.0-0.6) K/mcL Basophils # 0.1 (0.0-0.2) K/mcL Immature Plt Fraction 5.3 (1.1-6.1) % Sodium 140 (136-145) mEq/L Potassium 4.3 (3.5-4.5) mEq/L Chloride 104 (98-109) mEq/L Carbon Dioxide 27 (19-29) mEq/L BUN 27 H (8-26) mg/dL Creatinine 1.53 H (0.72-1.25) mg/dL Est GFR ( Amer) 53 L (> 60) Est GFR (Non-Af Amer) 44 L (> 60) BUN/Creatinine Ratio 18 (6-26) Glucose 237 H (70-99) mg/dL Calculated Osmolality 303 H (280-300) Lactic Acid 1.9 (0.5-2.2) mmol/L Calcium 9.0 (8.6-10.8) mg/dL Troponin I (0-0.03) ng/mL B-Natriuretic Peptide (0-100) pg/mL 08/09/17 08/09/17 08/09/17 Range/Units 08:40 08:40 09:26 WBC (4.3-11.1) K/mcL RBC (4.19-5.50) M/mcL Hgb (12.9-16.9) g/dL Hct (37.5-50.1) % MCV (83.0-100.0) fL MCH (28.0-33.3) pg MCHC (31.6-35.5) g/dL RDW (11.5-14.5) % Plt Count (140-400) K/mcL MPV (9.4-12.4) fL Immature Gran % (0-4) % Seg Neutrophils % % Lymphocytes % % Monocytes % % Eosinophils % % Basophils % % Neutrophils # (1.6-8.9) K/mcL Lymphocytes # (0.6-4.6) K/mcL Monocytes # (0.0-1.3) K/mcL Eosinophils # (0.0-0.6) K/mcL Basophils # (0.0-0.2) K/mcL Immature Plt Fraction (1.1-6.1) % Sodium (136-145) mEq/L Potassium (3.5-4.5) mEq/L Chloride (98-109) mEq/L Carbon Dioxide (19-29) mEq/L BUN (8-26) mg/dL Creatinine (0.72-1.25) mg/dL Est GFR ( Amer) (> 60) Est GFR (Non-Af Amer) (> 60) BUN/Creatinine Ratio (6-26) Glucose (70-99) mg/dL Calculated Osmolality (280-300) Lactic Acid 1.6 (0.5-2.2) mmol/L Calcium (8.6-10.8) mg/dL Troponin I 0.02 (0-0.03) ng/mL B-Natriuretic Peptide 511 H (0-100) pg/mL - Radiology Data Radiology results reviewed: Yes I reviewed the patient's radiology results. Chest X-Ray 08/09/17 07:24 IMPRESSION: Vascular congestion with small effusions and bibasilar atelectasis or infiltrate. D/ / Vinod Barnes MD / Vinod Barnes MD Interpreting Provider: iVnod Barnes MD - EKG Data EKG attestation: Yes I reviewed and interpreted this EKG. EKG results narrative: EKG reviewed by Dr. Marilyn Du as well. EKG shows a sinus rhythm at a rate of 88 bpm. [place] interval 175, QRS duration 97, QT/QTc interval 377/423. No ectopy noted. No STEMI. No significant changes when compared to an EKG dated 07/29/17. Attestation Statement - Attestation Attestation: For this encounter, I have reviewed the ELEVATOR SERVICE MECHANIC or PA documentation, treatment plan, and medical decision making; and I have had face to face time with this patient. Patient is an 82-year-old white male with a history of congestive heart failure who presents to the emergency department brought by his today for gradually worsening shortness of breath since midnight. Patient states that during the night he had difficulty lying flat, feels short of breath with a mild cough but nonproductive, and increased lower extremity edema bilaterally. Patient states this feels like when his heart failure flares up. Patient denies any chest pain pressure or heaviness, no diaphoresis, no fevers or chills , no upper respiratory symptoms besides reported cough. Patient denies any abdominal pain or flank pain, no lightheadedness or dizziness, no syncope at home. Was hospitalized a few months ago and was supposedly discharged on Lasix 20 mg but patient denies ever having a prescription for this or taking this at home. I agree with patient's physical exam findings as documented. Patient's in no respiratory distress on arrival and vital signs are stable. EKG was normal sinus rhythm without acute ischemia. Chest x-ray shows evidence of congestive heart failure with trace bilateral pleural effusions. Patient's lab evaluation shows a mild elevation in his BNP remainder of his labs were unremarkable. Patient received IV Lasix and nitroglycerin here. Patient also received aspirin. Patient will be admitted for an acute exacerbation of CHF. Respiratory status is stable at this time case was discussed with the hospitalist who accepted patient for admission.
[2017-08-09 08:56] LABS: Basophils # 0.1 K/mcL (0.0-0.2); Basophils % 0.8 %; Eosinophils # 0.3 K/mcL (0.0-0.6); Eosinophils % 2.4 %; Hemoglobin 11.3 g/dL (12.9-16.9); Immature Granulocytes % 0.2 % (0-4); Immature Platelets 5.3 % (1.1-6.1); Lymphocytes # 1.5 K/mcL (0.6-4.6); Lymphocytes % 14.4 %; Mean Corpuscular HGB Conc 31.4 g/dL (31.6-35.5); Mean Corpuscular Hemoglobin 27.4 pg (28.0-33.3); Mean Corpuscular Volume 87.2 fL (83.0-100.0); Monocytes # 0.7 K/mcL (0.0-1.3); Monocytes % 6.5 %; Platelet Count 222 K/mcL (140-400); Red Blood Count 4.13 M/mcL (4.19-5.50); Red Cell Distribution Width 14.6 % (11.5-14.5); Segmented Neutrophils % 75.7 %
[2017-08-09 08:58] LABS: Potassium 4.3 mEq/L (3.5-4.5)
[2017-08-09] MEDS ORDERED: Nitroglycerin 1 INCH/GM PACKET TP ONE (09:26)
[2017-08-09] MEDS ORDERED: Furosemide 40 MG/4 ML VIAL IVP ONE (09:26)
--- NOTE | 2017-08-09 11:02 | Internal Med History&Physical ---
Date of Encounter: 08/09/17 Time of Encounter: 10:59 Assessment and Plan (1) Acute exacerbation of congestive heart failure Current visit: Yes Status: Acute Acute diastolic heart failure with symptoms of shortness of breath PND and orthopnea Qualifiers: Congestive heart failure type: diastolic Qualified Code(s): I50.33 - Acute on chronic diastolic (congestive) heart failure (2) Anemia Current visit: No Status: Acute chronic Qualifiers: Anemia type: other cause Other causes of anemia: acute posthemorrhagic Qualified Code(s): D62 - Acute posthemorrhagic anemia (3) Diabetes Current visit: No Status: Chronic chronic will satrt on sliding scale Qualifiers: Diabetes mellitus type: type 2 Diabetes mellitus complication status: with circulatory complication Diabetes mellitus complication detail: with other circulatory complications Diabetes mellitus terminal carman insulin use: with mcfp use Qualified Code(s): E11.59 - Type 2 diabetes mellitus with other circulatory complications; Z79.4 - continuous churn buttermaker (current) use of insulin (4) Hypertension Current visit: No Status: Chronic uncontrolled contributionto chf Qualifiers: Hypertension type: essential hypertension Qualified Code(s): I10 - Essential (primary) hypertension Internal Medicine - H&P: HPI Chief complaint: sob Admitted From: Emergency Dept Plans for Post Hospital Care: Home History of present illness: Mr. Balderrama is a 82 year old male Patient with history of CAD had a CABG done three-vessel, hypertension, diabetes , CK D, anemia, CHF. Patient recently admitted and treated for congestive [place] and discharged. Apparently was supposed to be on Lasix which he was not on Lasix patient came in because of shortness of breath PND and lower extremity edema some mild chest pain evaluation consistent with chf bnP 511 patient admitted and being treated with IV Lasix blood pressures also very high in the 180s. Currently chest pain-free Past Med Surg Social Fam HX - Past Medical History Medical history: coronary artery disease, diabetes, GI bleed, hypertension, myocardial infarction Psychiatric history: no psych history - Past Surgical History Surgical History: angioplasty/stent (multiple ), cholecystectomy, coronary bypass (CABG) - Social History Smoking Status: Former smoker Smokeless Tobacco Status: No Alcohol use: none Drug use: none - Family History Brother Living Status: Still Living Hx Family Cancer: Yes (Lung) Hx Family Endocrine Disorder: Yes (DM) Father Living Status: Hx Family Cancer: Yes (Stomach) Internal Medicine - H&P: Meds GlipiZIDE XL (24 HR) [Glucotrol XL] 5 mg PO BID 08/16/15 [History] Insulin DETEMIR [Levemir] 20 unit SQ BID 08/16/15 [History] Promethazine [Phenergan] 25 mg PO BID PRN 08/16/15 [History] Acetaminophen [Tylenol] 650 mg PO Q6HR PRN #30 tablet 08/09/16 [Rx] Nitroglycerin [Nitrostat] 0.4 mg SL Q5M #1 vial 05/26/17 [Rx] Potassium Chloride 10 meq PO DAILY #30 tab.er.prt 05/26/17 [Rx] Lisinopril [Zestril] 20 mg PO BID 06/18/17 [History] Metoprolol [Lopressor] 50 mg PO BID 06/18/17 [History] Ranitidine HCl [Heartburn Relief] 150 mg PO BID 06/18/17 [History] hydroCHLOROthiazide [Hydrochlorothiazide] 25 mg PO DAILY 06/18/17 [History] metFORMIN [Glucophage] 500 mg PO BID 06/18/17 [History] OxyCODONE/APAP 5/325 [Percocet 5/325 MG] 1 tab PO BID PRN #14 tablet 06/27/17 [ Rx] Pravastatin Sodium [Pravachol] 20 mg PO HS #30 tablet 06/27/17 [Rx] Doxazosin Mesylate [Cardura] 2 mg PO HS 07/29/17 [History] Furosemide [Lasix] 20 mg PO DAILY #30 tablet 07/31/17 [Rx] 3 Allergy/AdvReac Type Severity Reaction Status Date / Time morphine Allergy See Verified 08/09/17 07:10 Comments All Systems PM: A 10-system review of systems was performed and is negative for pertinent findings except as documented above in the HPI. - Constitutional Constitutional: weight gain - EENT Eyes: no change in vision, no discharge, no pain, no photophobia Nose, mouth and throat: no dysphagia, no nasal discharge, no neck pain, no sore throat - Cardiovascular Cardiovascular ROS IM: chest pain, dyspnea, dyspnea on exertion, edema - Respiratory Respiratory: dyspnea, dyspnea on exertion - Gastrointestinal Gastrointestinal: no abdominal pain, no diarrhea, no hematemesis, no hematochezia, no melena, no nausea, no vomiting - Musculoskeletal Musculoskeletal ROS IM: no numbness, no tingling - Integumentary Integumentary IM: no rash, no unusual bruising - Neurological Neurological ROS: no confusion, no convulsions, no focal weakness, no numbness, no tingling, no tremor(s) - Constitutional Vitals: Temp Pulse Resp BP Pulse Ox 97.2 F L 82 20 184/103 95 08/09/17 10:56 08/09/17 10:56 08/09/17 10:56 08/09/17 10:56 08/09/17 10:56 - Eye Eye exam: Present: PERRL, conjuntiva pink, sclera anicteric Pupils: Present: PERRL - Neck Neck exam general surgery: Present: supple, trachea midline. Absent: lymphadenopathy - Respiratory Respiratory exam: Present: rales, rhonchi - Cardiovascular Cardiovascular exam: Present: RRR, +S1, +S2 - GI/Abdominal GI/Abdominal exam: Present: normal bowel sounds, soft, no peritoneal signs. Absent: distended, tenderness - Extremities Exam Extremities exam: Present: pedal edema Internal Med - H&P Results - Labs CBC & Chem 7: 08/09/17 08:30 08/09/17 08:40 Labs: Short CBC 08/09/17 Range/Units 08:30 WBC 10.5 (4.3-11.1) K/mcL Hgb 11.3 L (12.9-16.9) g/dL Hct 36.0 L (37.5-50.1) % Plt Count 222 (140-400) K/mcL Neutrophils # 8.0 (1.6-8.9) K/mcL BMP 08/09/17 08:40 Sodium 140 Potassium 4.3 Chloride 104 Carbon Dioxide 27 BUN 27 H Creatinine 1.53 H Glucose 237 H Calcium 9.0 Cardiac Enzymes 08/09/17 Range/Units 08:40 Troponin I 0.02 (0-0.03) ng/mL - Impressions ITS Impressions Chest X-Ray 08/09/17 07:24 IMPRESSION: Vascular congestion with small effusions and bibasilar atelectasis or infiltrate. D/ / 08/09/2017 10:21:10 Vinod Barnes MD / eron Interpreting Provider: Vinod Barnes MD
[2017-08-09] MEDS ORDERED: *HR* Morphine 2 MG/ML SYRINGE IVP PRN (11:08)
[2017-08-09] MEDS ORDERED: Naloxone 0.4 MG/ML INJ IVP PRN (11:08)
[2017-08-09] MEDS ORDERED: Acetaminophen 325 MG TABLET PO PRN (11:08)
[2017-08-09] MEDS ORDERED: Mag Hydrox/Al Hydrox/Simeth 30 ML UDC PO PRN (11:08)
[2017-08-09] MEDS ORDERED: Nitroglycerin 0.4 MG TAB.SUBL SL PRN (12:15)
[2017-08-09] MEDS: Nitroglycerin 0.4 MG TAB.SUBL SL SCH ×4 (13:37→13:40)
[2017-08-09] MEDS: Ondansetron 4 MG/2 ML VIAL IVP PRN (15:14)
[2017-08-09] MEDS: *HR* OxyCODONE/APAP 5/325 TABLET PO PRN ×2 (15:14→21:58)
[2017-08-09] MEDS: amLODIPine 5 MG TABLET PO SCH (15:14)
[2017-08-09] MEDS: Furosemide 40 MG/4 ML VIAL IVP SCH (17:30)
[2017-08-09] MEDS ORDERED: Furosemide 40 MG in 0.9 % Sodium Chloride 50 ML IVPB SCH (21:00)
[2017-08-09] MEDS ORDERED: Famotidine 20 MG TABLET PO SCH (21:00)
[2017-08-09] MEDS: Insulin DETEMIR 100 UNIT/ML X5UNITS SQ SCH (21:45)
[2017-08-09] MEDS: *HR* Metformin 500 MG TABLET PO SCH (21:45)
[2017-08-09] MEDS: Famotidine 20 MG TABLET PO SCH (21:46)
[2017-08-09] MEDS: *HR* GlipiZIDE XL (24 HR) 2.5 MG TABLET PO SCH (21:46)
[2017-08-09] MEDS: Lisinopril 20 MG TABLET PO SCH (21:46)
[2017-08-10 07:43] LABS: Calcium 8.7 mg/dL (8.6-10.8); Chol/HDL Ratio 4.7 (0-4.9)
[2017-08-10 07:46] LABS: Potassium 3.9 mEq/L (3.5-4.5)
[2017-08-10] MEDS: Ondansetron 4 MG/2 ML VIAL IVP PRN (08:15)
[2017-08-10] MEDS: Furosemide 40 MG/4 ML VIAL IVP SCH ×2 (08:16→16:27)
[2017-08-10] MEDS: Famotidine 20 MG TABLET PO SCH ×2 (08:17→21:55)
[2017-08-10] MEDS: *HR* Metformin 500 MG TABLET PO SCH ×2 (08:17→21:54)
[2017-08-10] MEDS: *HR* GlipiZIDE XL (24 HR) 2.5 MG TABLET PO SCH ×2 (08:17→21:55)
[2017-08-10] MEDS: amLODIPine 5 MG TABLET PO SCH (08:17)
[2017-08-10] MEDS: hydroCHLOROthiazide 25 MG TABLET PO SCH (08:17)
[2017-08-10] MEDS: Lisinopril 20 MG TABLET PO SCH ×2 (08:17→21:56)
[2017-08-10] MEDS: Insulin DETEMIR 100 UNIT/ML X5UNITS SQ SCH ×2 (08:18→21:56)
--- NOTE | 2017-08-10 08:37 | Internal Med Progress Note ---
<Tulio Molina - Last Filed: 08/10/17 08:31> Date of Encounter: 08/10/17 Time of Encounter: 08:00 - Assessment and plan (1) Acute exacerbation of congestive heart failure Current Visit: Yes Status: Acute Assessment and plan: Patient presented with acute diastolic HF with symptoms of SOB, PND and orthopnea Last ECHO on 07/29/17 demonstrated the following: -LVEF 55%. -Mild concentric LVH. -Atypical septal motion consistent with post-operative status. -Mild left ventricular diastolic dysfunction. -Severely dilated left atrium. -Mild-moderate AR. -Moderate MR. Plan: -Lasix 40 mg IV BID -Cardiac/Diabetic diet -Continuous cardiac monitoring Qualifiers: Congestive heart failure type: diastolic Qualified Code(s): I50.33 - Acute on chronic diastolic (congestive) heart failure (2) Hypertension Current Visit: No Status: Chronic Assessment and plan: Patient has a known history of HTN. BP this morning was 155/81. Plan: -Norvasc 10 mg PO daily -HCTZ 25 mg PO daily -Lisinopril 20 mg PO TID -Metoprolol 50 mg PO BID Qualifiers: Hypertension type: essential hypertension Qualified Code(s): I10 - Essential (primary) hypertension (3) Diabetes Current Visit: No Status: Chronic Assessment and plan: -Glucose this morning was 164 Plan: -Glipizide XL 5mg PO BID -Metformin 500 mg PO BID -ISS -Diabetic diet Qualifiers: Diabetes mellitus type: type 2 Diabetes mellitus complication status: with circulatory complication Diabetes mellitus complication detail: with other circulatory complications Diabetes mellitus skilled nursing insulin use: with adjunct faculty for medical terminology use Qualified Code(s): E11.59 - Type 2 diabetes mellitus with other circulatory complications; Z79.4 - retirement (current) use of insulin (4) Anemia Current Visit: No Status: Acute Assessment and plan: Chronic; stable Qualifiers: Anemia type: other cause Other causes of anemia: acute posthemorrhagic Qualified Code(s): D62 - Acute posthemorrhagic anemia - Subjective Interval history: Mr Balderrama is an 82-year-old male with a PMH of CHF who presented to the ED on with the chief complaint of shortness of breath. He was woken from sleep at approximately midnight by the sensation of shortness of breath. Patient has had intermittent episodes like this in the past, but the night of presentation was worse. He also admitted to having intermittent episodes of substernal chest pain. SOB was exacerbated by lying flat. He was also noted to have increased peripheral lower extremity edema bilaterally. According to patiet, this feels like when his heart failure flares up. He was hospitalized a few months ago, and was supposed to be discharged on Lasix 20 mg. However, patient denies ever having a prescription for this or taking this at home. EKG was normal sinus rhythm without acute ischemia. Chest x-ray demonstrated CHF with trace bilateral pleural effusions. Laboratory evaluation demonstrated mild elevation in his BNP; remainder of his labs were unremarkable. In the ED, he received IV Lasix, ASA, and nitroglycerin here. He was admitted for acute exacerbation of CHF. Patient was seen and examined at bedside this morning. Reports a significant improvement in his initial symptoms. He denies having any shortness of breath or chest pain. No pedal edema is present. Patient does have bibasilar crackles bilaterally. He has no complaints at this time. - Constitutional Vitals: Temp Pulse Resp BP Pulse Ox 97.8 F 72 18 155/81 93 08/10/17 07:41 08/10/17 07:41 08/10/17 07:41 08/10/17 07:41 08/10/17 07:41 General appearance: Present: A&O X 3 - Head Head exam: Present: atraumatic, normocephalic - Eye Eye exam: Present: PERRL, conjuntiva pink, sclera anicteric Pupils: Present: PERRL - Neck Neck exam general surgery: Present: supple, trachea midline. Absent: lymphadenopathy - Respiratory Respiratory exam: Present: rales. Absent: accessory muscle use, rhonchi, wheezes - Cardiovascular Cardiovascular exam: Present: RRR, +S1, +S2. Absent: diastolic murmur, gallop, rubs, systolic murmur - GI/Abdominal GI/Abdominal exam: Absent: distended - Extremities Exam Extremities exam: Present: warm, radial pulses palpable and symmetrical. Absent : calf tenderness, cyanotic, pedal edema - Skin Skin exam: Present: dry, intact Internal Medicine: Result - Labs CBC & Chem 7: 08/09/17 08:30 08/10/17 06:19 Labs: BMP 08/10/17 06:19 Sodium 142 Potassium 3.9 Chloride 105 Carbon Dioxide 24 BUN 30 H Creatinine 1.70 H Glucose 164 H Calcium 8.7 Cardiac Enzymes 08/09/17 08/09/17 08/10/17 Range/Units 14:25 20:43 06:19 Troponin I 0.02 0.01 0.02 (0-0.03) ng/mL Consult Discharge Plan - Plan Referrals: Shelli Lobo MD [Primary Care Provider] - <Aidan Cazares H - Last Filed: 08/10/17 11:52> Date of Encounter: 08/10/17 - Constitutional Vitals: Temp Pulse Resp BP Pulse Ox 97.6 F 81 19 126/64 93 08/10/17 11:23 08/10/17 11:23 08/10/17 11:23 08/10/17 11:23 08/10/17 11:23 Internal Medicine: Result - Labs CBC & Chem 7: 08/09/17 08:30 08/10/17 06:19 Labs: BMP 08/10/17 06:19 Sodium 142 Potassium 3.9 Chloride 105 Carbon Dioxide 24 BUN 30 H Creatinine 1.70 H Glucose 164 H Calcium 8.7 Cardiac Enzymes 08/09/17 08/09/17 08/10/17 Range/Units 14:25 20:43 06:19 Troponin I 0.02 0.01 0.02 (0-0.03) ng/mL - Attending Attestation Acute diastolic CHF exacerbation Patient was not able to take his Lasix at home although he was prescribed according to the discharge summary Decrease IV Lasix down to 20 mg IV twice a day as his creatinine increased from 1.53 up to 1.7 Chronic kidney disease stage III I examined this patient and my medical decision-making was reviewed with the Resident Physician. I agree with the documented findings, disposition and treatment plan as described except to the extent set forth below.
[2017-08-10] MEDS: *HR* OxyCODONE/APAP 5/325 TABLET PO PRN (13:53)
[2017-08-11] MEDS: Ondansetron 4 MG/2 ML VIAL IVP PRN (03:34)
[2017-08-11] MEDS: *HR* OxyCODONE/APAP 5/325 TABLET PO PRN ×2 (03:43→18:25)
[2017-08-11] MEDS: Famotidine 20 MG TABLET PO SCH ×2 (08:24→21:07)
[2017-08-11] MEDS: hydroCHLOROthiazide 25 MG TABLET PO SCH (08:24)
[2017-08-11] MEDS: *HR* GlipiZIDE XL (24 HR) 2.5 MG TABLET PO SCH ×2 (08:25→21:06)
[2017-08-11] MEDS: Furosemide 40 MG/4 ML VIAL IVP SCH (08:25)
[2017-08-11] MEDS: *HR* Metformin 500 MG TABLET PO SCH (08:25)
[2017-08-11] MEDS: Lisinopril 20 MG TABLET PO SCH (08:25)
[2017-08-11] MEDS: amLODIPine 5 MG TABLET PO SCH (08:25)
[2017-08-11] MEDS: Insulin DETEMIR 100 UNIT/ML X5UNITS SQ SCH ×2 (08:31→21:07)
--- NOTE | 2017-08-11 09:24 | Discharge Summary ---
Date of Encounter: 08/11/17 Time of Encounter: 09:22 - Discharge Diagnosis (1) Acute exacerbation of congestive heart failure Priority: Primary Status: Acute Comments: Acute diastolic CHF exacerbation Qualifiers: Congestive heart failure type: diastolic Qualified Code(s): I50.33 - Acute on chronic diastolic (congestive) heart failure (2) CAD (coronary artery disease), [place] coronary artery Priority: Secondary Status: Chronic Qualifiers: [place] vs. transplanted heart: [place] heart Associated angina: with unspecified angina Qualified Code(s): I25.119 - Atherosclerotic heart disease of [place] coronary artery with unspecified angina pectoris (3) Diverticulosis Priority: Secondary Status: Chronic Qualifiers: Diverticulosis site: diverticulosis of large intestine Diverticulosis bleeding: diverticulosis with bleeding Qualified Code(s): K57.31 - Diverticulosis of large intestine without perforation or abscess with bleeding (4) Chronic kidney disease (CKD) Priority: Secondary Status: Chronic Qualifiers: Chronic kidney disease stage: stage 3 (moderate) Qualified Code(s): N18.3 - Chronic kidney disease, stage 3 (moderate) (5) Hypertension Priority: Secondary Status: Chronic Qualifiers: Hypertension type: essential hypertension Qualified Code(s): I10 - Essential (primary) hypertension (6) Hyperglycemia due to type 2 diabetes mellitus Priority: Secondary Status: Acute Qualifiers: Diabetes mellitus chcf insulin use: without petroleum terminal plant operator use Qualified Code(s): E11.65 - Type 2 diabetes mellitus with hyperglycemia - Discharge Medications Prescriptions: Furosemide [Lasix] 20 mg PO BID #60 tablet Home Medications: GlipiZIDE XL (24 HR) [Glucotrol XL] 5 mg PO BID 08/16/15 [History] Insulin DETEMIR [Levemir] 20 unit SQ BID 08/16/15 [History] Promethazine [Phenergan] 25 mg PO BID PRN 08/16/15 [History] Acetaminophen [Tylenol] 650 mg PO Q6HR PRN #30 tablet 08/09/16 [Rx] Nitroglycerin [Nitrostat] 0.4 mg SL Q5M #1 vial 05/26/17 [Rx] Potassium Chloride 10 meq PO DAILY #30 tab.er.prt 05/26/17 [Rx] Lisinopril [Zestril] 20 mg PO BID 06/18/17 [History] Metoprolol [Lopressor] 50 mg PO BID 06/18/17 [History] Ranitidine HCl [Heartburn Relief] 150 mg PO BID 06/18/17 [History] hydroCHLOROthiazide [Hydrochlorothiazide] 25 mg PO DAILY 06/18/17 [History] OxyCODONE/APAP 5/325 [Percocet 5/325 MG] 1 tab PO BID PRN #14 tablet 06/27/17 [ Rx] Pravastatin Sodium [Pravachol] 20 mg PO HS #30 tablet 06/27/17 [Rx] Doxazosin Mesylate [Cardura] 2 mg PO HS 07/29/17 [History] Furosemide [Lasix] 20 mg PO BID #60 tablet 08/11/17 [Rx] Allergies/Adverse Reactions: 3 Allergy/AdvReac Type Severity Reaction Status Date / Time morphine Allergy See Verified 08/09/17 07:10 Comments Date of admission: 08/09/17 11:14 Primary care physician: Shelli Fisher - Patient Status Disposition: Home, Self-Care Condition: Fair Overall status at discharge: patient is back to baseline - Discharge Instructions Follow Up With: Shelli Lobo MD [Primary Care Provider] - Additional Instructions: Follow-up with primary care physician within the next 7 days. Continue Lasix 20 mg in the morning and 20 mg in the afternoon. Stop metformin due to worsening renal disease - Diet and Activity Activity: increase activity as tolerated Diet: diabetic diet Hospital course: Mr. Balderrama is a 82 year old male with history of CAD had a CABG done three- vessel and multiple stents, hypertension, diabetes [id number], CKD3, anemia, diastolic CHF, hypertension, GI bleed. Patient recently admitted and treated for congestive heart failure and discharged. Apparently was supposed to be on Lasix ( the discharge summary confirms that Lasix was prescribed) the patient mentions that he was not sent on a Lasix. The patient came in because of shortness of breath, PND and lower extremity edema accompanied with some mild chest pain. The new evaluation was consistent with chf bnP was 511 , was admitted and treated with IV Lasix. Blood pressure was also very high in the 180s, now properly controlled. The patient feels much better. He will be going on Lasix 20 mg twice a day. He was told not to continue metformin due to His chronic kidney disease - Time Spent with Patient Total time spent providing and/or coordinating discharge services: Greater than 30 minutes (40 min) - Constitutional Vitals: Temp Pulse Resp BP Pulse Ox 97.5 F L 70 16 147/75 94 08/11/17 07:25 08/11/17 07:25 08/11/17 07:25 08/11/17 07:25 08/11/17 07:25 General appearance: Present: A&O X 3 - Head Head exam: Present: atraumatic, normocephalic - Eye Eye exam: Present: PERRL, conjuntiva pink, sclera anicteric Pupils: Present: PERRL - Neck Neck exam general surgery: Present: supple, trachea midline. Absent: lymphadenopathy - Respiratory Respiratory exam: Present: decreased breath sounds, CTAB. Absent: accessory muscle use, rales, rhonchi, wheezes - Cardiovascular Cardiovascular exam: Present: RRR, +S1, +S2. Absent: diastolic murmur, gallop, rubs, systolic murmur - GI/Abdominal GI/Abdominal exam: Present: normal bowel sounds, soft, no peritoneal signs. Absent: distended, tenderness - Extremities Exam Extremities exam: Present: pedal edema (+1 pitting edema in both lower extremities has resolved), warm, radial pulses palpable and symmetrical. Absent : calf tenderness, cyanotic - Neurological Exam Neurological exam: Present: CN II-XII intact, oriented X3, no focal deficits. Absent: pronater drift, facial droop, speech deficit - Skin Skin exam: Present: dry, intact
[2017-08-11 10:04] LABS: Calcium 9.2 mg/dL (8.6-10.8); Potassium 4.2 mEq/L (3.5-4.5)
--- NOTE | 2017-08-11 11:54 | Internal Med Progress Note ---
Date of Encounter: 08/11/17 Time of Encounter: 11:52 - Assessment and plan (1) Acute exacerbation of congestive heart failure Current Visit: Yes Status: Acute Assessment and plan: Acute diastolic CHF exacerbation Last ECHO on 07/29/17 demonstrated the following: -LVEF 55%. -Mild concentric LVH. -Atypical septal motion consistent with post-operative status. -Mild left ventricular diastolic dysfunction. -Severely dilated left atrium. -Mild-moderate AR. -Moderate MR. Hold Lasix today due to worsening renal function Consider nephrology consultation not improving Qualifiers: Congestive heart failure type: diastolic Qualified Code(s): I50.33 - Acute on chronic diastolic (congestive) heart failure (2) CAD (coronary artery disease), [place] coronary artery Current Visit: No Status: Chronic Qualifiers: [place] vs. transplanted heart: [place] heart Associated angina: with unspecified angina Qualified Code(s): I25.119 - Atherosclerotic heart disease of [place] coronary artery with unspecified angina pectoris (3) Diverticulosis Current Visit: No Status: Chronic Qualifiers: Diverticulosis site: diverticulosis of large intestine Diverticulosis bleeding: diverticulosis with bleeding Qualified Code(s): K57.31 - Diverticulosis of large intestine without perforation or abscess with bleeding (4) Chronic kidney disease (CKD) Current Visit: No Status: Chronic Assessment and plan: Acute on chronic renal failure Hold Lasix and lisinopril, recheck creatinine in the morning and consider nephrology consult if not improving Qualifiers: Chronic kidney disease stage: stage 3 (moderate) Qualified Code(s): N18.3 - Chronic kidney disease, stage 3 (moderate) (5) Hypertension Current Visit: No Status: Chronic Assessment and plan: Patient has a known history of HTN. BP this morning was 155/81. Plan: -Norvasc 10 mg PO daily -HCTZ 25 mg PO daily -Lisinopril 20 mg PO TID -Metoprolol 50 mg PO BID Qualifiers: Hypertension type: essential hypertension Qualified Code(s): I10 - Essential (primary) hypertension (6) Hyperglycemia due to type 2 diabetes mellitus Current Visit: No Status: Acute Assessment and plan: Stop metformin permanently Use insulin sliding scale Qualifiers: Diabetes mellitus fci insulin use: without long term care phlebotomist use Qualified Code(s): E11.65 - Type 2 diabetes mellitus with hyperglycemia - Subjective Interval history: Feeling better, less short of breath, no chest pain or shortness of breath, no dysuria, no fevers - Constitutional Vitals: Temp Pulse Resp BP Pulse Ox 97.6 F 70 16 147/70 95 08/11/17 11:10 08/11/17 11:10 08/11/17 11:10 08/11/17 11:10 08/11/17 11:10 General appearance: Present: A&O X 3 - Head Head exam: Present: atraumatic, normocephalic - Eye Eye exam: Present: PERRL, conjuntiva pink, sclera anicteric Pupils: Present: PERRL - Neck Neck exam general surgery: Present: supple, trachea midline. Absent: lymphadenopathy - Respiratory Respiratory exam: Present: CTAB. Absent: accessory muscle use, rales, rhonchi, wheezes - Cardiovascular Cardiovascular exam: Present: RRR, +S1, +S2. Absent: diastolic murmur, gallop, rubs, systolic murmur - GI/Abdominal GI/Abdominal exam: Present: normal bowel sounds, soft, no peritoneal signs. Absent: distended, tenderness - Extremities Exam Extremities exam: Present: warm, radial pulses palpable and symmetrical. Absent : calf tenderness, cyanotic, pedal edema - Neurological Exam Neurological exam: Present: CN II-XII intact, oriented X3, no focal deficits. Absent: pronater drift, facial droop, speech deficit - Skin Skin exam: Present: dry, intact Internal Medicine: Result - Labs CBC & Chem 7: 08/09/17 08:30 08/11/17 09:43 Labs: BMP 08/11/17 09:43 Sodium 140 Potassium 4.2 Chloride 102 Carbon Dioxide 26 BUN 32 H Creatinine 1.95 H Glucose 269 H Calcium 9.2 Consult Discharge Plan - Plan Additional Instructions: Follow-up with primary care physician within the next 7 days. Continue Lasix 20 mg in the morning and 20 mg in the afternoon. Stop metformin due to worsening renal disease Referrals: Shelli Lobo MD [Primary Care Provider] - 08/15/17 10:00 am Prescriptions: Furosemide [Lasix] 20 mg PO BID #60 tablet
--- NOTE | 2017-08-11 17:16 | Electrocardiograph Report ---
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
[2017-08-12 07:17] LABS: Calcium 9.1 mg/dL (8.6-10.8); Potassium 3.7 mEq/L (3.5-4.5)
[2017-08-12] MEDS: Insulin DETEMIR 100 UNIT/ML X5UNITS SQ SCH (07:51)
[2017-08-12] MEDS: amLODIPine 5 MG TABLET PO SCH (07:52)
[2017-08-12] MEDS: *HR* GlipiZIDE XL (24 HR) 2.5 MG TABLET PO SCH (07:52)
[2017-08-12] MEDS: Famotidine 20 MG TABLET PO SCH (07:53)
[2017-08-12] MEDS: hydroCHLOROthiazide 25 MG TABLET PO SCH (07:53)
--- NOTE | 2017-08-12 09:03 | Internal Med Progress Note ---
<Ravi Hidalgo - Last Filed: 08/12/17 14:31> Date of Encounter: 08/12/17 Time of Encounter: 10:45 - Assessment and plan (1) Acute exacerbation of congestive heart failure Current Visit: Yes Status: Acute Assessment and plan: Acute diastolic CHF exacerbation Last ECHO on 07/29/17 demonstrated the following: -LVEF 55%. -Mild concentric LVH. -Atypical septal motion consistent with post-operative status. -Mild left ventricular diastolic dysfunction. -Severely dilated left atrium. -Mild-moderate AR. -Moderate MR. Lasix was held yesterday and Cr was normalizing. Pt can be DC'ed home and will stop metformin for good and decrease lasix to 20 mg daily rather than BID and will be restarted on lisinopril and restart DM meds outside of metformin. Also have home oxygen set up for tonight and DC is pending [place] approval for home oxygen. He also qualified for BIPAP at home which will be set up tomorrow. Pt explained risks of going home without BiPAP and he understands this and is okay with going home as long as he has oxygen set up at night. Pt will be [facility] with [facility] and he is in stable condition. Qualifiers: Congestive heart failure type: diastolic Qualified Code(s): I50.33 - Acute on chronic diastolic (congestive) heart failure (2) CAD (coronary artery disease), [place] coronary artery Current Visit: Yes Status: Chronic Qualifiers: [place] vs. transplanted heart: [place] heart Associated angina: with unspecified angina Qualified Code(s): I25.119 - Atherosclerotic heart disease of [place] coronary artery with unspecified angina pectoris (3) CHF (congestive heart failure) Current Visit: Yes Status: Acute Qualifiers: Congestive heart failure type: diastolic Congestive heart failure chronicity: acute on chronic Qualified Code(s): I50.33 - Acute on chronic diastolic (congestive) heart failure (4) Mild diastolic dysfunction Current Visit: Yes Status: Chronic (5) Chronic kidney disease (CKD) Current Visit: Yes Status: Chronic Assessment and plan: Acute on chronic renal failure Held Lasix and lisinopril yesterday and Cr was normalizing will not consult nephro. Will f/u with pcp to have Cr redrawn to be sure it normalizes. Qualifiers: Chronic kidney disease stage: stage 3 (moderate) Qualified Code(s): N18.3 - Chronic kidney disease, stage 3 (moderate) (6) Hypertension Current Visit: Yes Status: Chronic Assessment and plan: Patient has a known history of HTN. BP this morning was 146/81. Plan: -Norvasc 10 mg PO daily -HCTZ 25 mg PO daily -Lisinopril 20 mg PO TID -Metoprolol 50 mg PO BID Qualifiers: Hypertension type: essential hypertension Qualified Code(s): I10 - Essential (primary) hypertension (7) JAMAL (acute kidney injury) Current Visit: Yes Status: Acute (8) Hyperglycemia due to type 2 diabetes mellitus Current Visit: Yes Status: Acute Assessment and plan: Stop metformin permanently, for home meds will continue glipizide and levemir as before and will have pcp change based on blood sugar readings. 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 He does have F/u with his pcp this week. Pt denies any pain or other concerns. - Constitutional Vitals: Temp Pulse Resp BP Pulse Ox 97.6 F 70 17 146/81 93 08/12/17 07:40 08/12/17 07:40 08/12/17 07:40 08/12/17 07:40 08/12/17 07:40 General appearance: Present: A&O X 3 - Head Head exam: Present: atraumatic, normocephalic - Eye Eye exam: Present: PERRL, conjuntiva pink, sclera anicteric Pupils: Present: PERRL - Neck Neck exam general surgery: Present: supple, trachea midline. Absent: lymphadenopathy - Respiratory Respiratory exam: Present: CTAB. Absent: accessory muscle use, rales, rhonchi, wheezes - Cardiovascular Cardiovascular exam: Present: RRR, +S1, +S2. Absent: diastolic murmur, gallop, rubs, systolic murmur - GI/Abdominal GI/Abdominal exam: Present: normal bowel sounds, soft, no peritoneal signs. Absent: distended, tenderness - Extremities Exam Extremities exam: Present: warm, radial pulses palpable and symmetrical. Absent : calf tenderness, cyanotic, pedal edema - Neurological Exam Neurological exam: Present: CN II-XII intact, oriented X3, no focal deficits. Absent: pronater drift, facial droop, speech deficit - Skin Skin exam: Present: dry, intact Internal Medicine: Result - Labs CBC & Chem 7: 08/09/17 08:30 08/12/17 06:07 Labs: BMP 08/12/17 06:07 Sodium 141 Potassium 3.7 Chloride 103 Carbon Dioxide 28 BUN 35 H Creatinine 1.70 H Glucose 157 H Calcium 9.1 Consult Discharge Plan - Plan Instructions: Heart Failure (DC), Diabetes Mellitus Type 2 in Adults (DC), Chronic Hypertension (DC) Additional Instructions: Follow-up with primary care physician within the next 7 days. Continue Lasix 20 mg in the morning and 20 mg in the afternoon. Stop metformin due to worsening renal disease Referrals: Shelli Lobo MD [Primary Care Provider] - 08/15/17 10:00 am <Guillermo Mishra - Last Filed: 08/12/17 15:48> Date of Encounter: 08/12/17 - Constitutional Vitals: Temp Pulse Resp BP Pulse Ox 97.9 F 67 17 146/62 94 08/12/17 11:30 08/12/17 11:30 08/12/17 11:30 08/12/17 11:30 08/12/17 11:30 Internal Medicine: Result - Labs CBC & Chem 7: 08/09/17 08:30 08/12/17 06:07 Labs: BMP 08/12/17 06:07 Sodium 141 Potassium 3.7 Chloride 103 Carbon Dioxide 28 BUN 35 H Creatinine 1.70 H Glucose 157 H Calcium 9.1 - Attending Attestation I examined this patient and my medical decision-making was reviewed with the Resident Physician. I agree with the documented findings, disposition and treatment plan as described except to the extent set forth below. I have seen and examined the patient. Patient is a 82-year-old male with past medical history of coronary artery disease, diabetes, GI bleed and hypertension. Admitted for acute exacerbation of CHF. Seems to be back to baseline. Patient is being discharged home today with home oxygen.
[2017-08-12] MEDS: *HR* OxyCODONE/APAP 5/325 TABLET PO PRN (09:10)
[2017-08-12 11:31] VITALS: BP 146/62
--- NOTE | 2017-08-12 16:20 | Physician Discharge Referral ---
Home Health/Hosp Referral Info Transfer to: Home Health Provider in Charge Post Discharge: PCP - Diagnosis (1) Acute exacerbation of congestive heart failure Status: Acute (2) CAD (coronary artery disease), [place] coronary artery Status: Chronic (3) Chronic kidney disease (CKD) Status: Chronic (4) Hypertension Status: Chronic (5) Hyperglycemia due to type 2 diabetes mellitus Status: Acute - Respiratory Orders Oxygen / L per min (2 L via [place]) Smoking Cessation: Smoking cessation has been advised. For more information, call the [place] Tobacco Quit Line at 4-779-YUCF-NOW. - Diet/Nutrition Diet/Nutrition Orders: Cardiac - Activity Activity Orders: Up ad tracey, Ambulate - Services Needed Following services are medically necessary services: Nursing, Home Health Aide, Physical Therapy - Transfer Medications Home Medications: GlipiZIDE XL (24 HR) [Glucotrol XL] 5 mg PO BID 08/16/15 [History] Insulin DETEMIR [Levemir] 20 unit SQ BID 08/16/15 [History] Promethazine [Phenergan] 25 mg PO BID PRN 08/16/15 [History] Acetaminophen [Tylenol] 650 mg PO Q6HR PRN #30 tablet 08/09/16 [Rx] Nitroglycerin [Nitrostat] 0.4 mg SL Q5M #1 vial 05/26/17 [Rx] Potassium Chloride 10 meq PO DAILY #30 tab.er.prt 05/26/17 [Rx] Lisinopril [Zestril] 20 mg PO BID 06/18/17 [History] Metoprolol [Lopressor] 50 mg PO BID 06/18/17 [History] Ranitidine HCl [Heartburn Relief] 150 mg PO BID 06/18/17 [History] hydroCHLOROthiazide [Hydrochlorothiazide] 25 mg PO DAILY 06/18/17 [History] OxyCODONE/APAP 5/325 [Percocet 5/325 MG] 1 tab PO BID PRN #14 tablet 06/27/17 [ Rx] Pravastatin Sodium [Pravachol] 20 mg PO HS #30 tablet 06/27/17 [Rx] Doxazosin Mesylate [Cardura] 2 mg PO HS 07/29/17 [History] Furosemide [Lasix] 20 mg PO BID #60 tablet 08/11/17 [Rx] Allergies/Adverse Reactions: 3 Allergy/AdvReac Type Severity Reaction Status Date / Time morphine Allergy See Verified 08/09/17 07:10 Comments Certification: Further, I certify that my clinical findings support that this patient is homebound (i.e. absences from home require considerable and taxing effort and are for medical reasons or moravian services or infrequently or short duration when for other reasons) because: Homebound Reason: Patient requires assistance of a person or device to safely leave home Attestation: My signature below is to certify that this patient is under my care and that I, or nurse practitioner, or a physician's economist research assistant working with me, has a face-to -face encounter with this patient.
== END 2017-08-12 16:05 | disposition home health service (06) | DRG 291 ==
LOC: EMEROO 07:04 → 2ANU 07:04
PROVIDERS: ADMIT Internal Medicine Cardiovascular Disease; ATTEND Internal Medicine

== ENCOUNTER 2018-02-15 22:28 | Inpatient (IN) ==
[2018-02-16] MEDS ORDERED: Naloxone 0.4 MG/ML INJ IVP PRN (01:18)
[2018-02-16] MEDS ORDERED: *HR* Dextrose 50 % in Water (Syg) 50 ML SYRINGE IVP PRN (01:28)
[2018-02-16] MEDS ORDERED: Dextrose Gel 15 GM/37.5 ML TUBE PO PRN ×2 (01:28)
[2018-02-16] MEDS ORDERED: D5% in Water 1,000 ML IVC PRN (01:28)
[2018-02-16] MEDS ORDERED: Potassium Chloride 40 MEQ, Lidocaine 1% 2 ML in D5% in Water 500 ML IVPB ONE (01:31)
--- NOTE | 2018-02-16 02:07 | Internal Med History&Physical ---
Date of Encounter: 02/16/18 Time of Encounter: 01:00 Internal Medicine - H&P: HPI Chief complaint: Rectal bleeding Admitted From: Home Plans for Post Hospital Care: Home History of present illness: Mr. Balderrama is a 82 year old male presented to [facility] for rectal bleeding. Past medical history is significant for diabetes, hypertension, CAD S/P stent and CABG, diverticulosis. Patient to said he started to have rectal bleeding since 3 days ago. It is blood mixed in stool. The blood is red and the sometimes black. Since today around 4 PM, he started to have blood clots per rectal. Patient thought he has certain amount of blood loss but cannot clearly tell how much. Patient feels dizzy, lightheaded, mild nausea but no vomiting. Patient denies diarrhea. Patient denies fever. In [facility] emergency room, patient was found the hemoglobin is stable. BP is at high side. Patient was given IV fluid and IV PPI and transferred to our hospital for further management. 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 left knee replaced - Social History Smoking Status: Never smoker Smokeless Tobacco Status: No Alcohol use: none Drug use: none - Family History Brother Living Status: Still Living Hx Family Cancer: Yes (Lung) Hx Family Endocrine Disorder: Yes (DM) Father Living Status: Hx Family Cancer: Yes (Stomach) Internal Medicine - H&P: Meds Acetaminophen [Tylenol] 500 mg PO PRN PRN 08/16/17 [History] Doxazosin Mesylate [Cardura] 2 mg PO DAILY 08/16/17 [History] Furosemide [Lasix] 20 mg PO DAILY 08/16/17 [History] GlipiZIDE [Glipizide Xl] 5 mg PO DAILY 08/16/17 [History] Insulin DETEMIR [Levemir] 0 unit SQ BID 08/16/17 [History] Lisinopril [Zestril] 20 mg PO DAILY 08/16/17 [History] Metoprolol [Lopressor] 50 mg PO BID 08/16/17 [History] Nitroglycerin [Nitrostat] 0.4 mg SL PRN PRN 08/16/17 [History] OxyCODONE/APAP 5/325 [Percocet 5/325 MG] 1 each PO Q6HR PRN 08/16/17 [History] Potassium Chloride [Klor-Con Sprinkle] 10 meq PO DAILY 08/16/17 [History] Pravastatin Sodium [Pravachol] 20 mg PO DAILY 08/16/17 [History] Ranitidine HCl [Heartburn Relief] 150 mg PO DAILY 08/16/17 [History] hydroCHLOROthiazide [Hydrochlorothiazide] 25 mg PO DAILY 08/16/17 [History] Diphenoxylate/Atropine [Lomotil 2.5 mg/0.025 mg] 1 each PO TID 5 Days #15 tablet 09/25/17 [Rx] Ondansetron HCl [Zofran] 4 mg PO TID #15 tablet 09/25/17 [Rx] 3 Allergy/AdvReac Type Severity Reaction Status Date / Time morphine Allergy See Verified 02/15/18 19:07 Comments All Systems PM: A 10-system review of systems was performed and is negative for pertinent findings except as documented above in the HPI. - Constitutional General appearance: Present: A&O X 3, no acute distress, answers questions appropriately - Head Head exam: Present: atraumatic, normocephalic - Eye Eye exam: Present: PERRL, conjuntiva pink, sclera anicteric Pupils: Present: PERRL - Neck Neck exam general surgery: Present: supple, trachea midline. Absent: lymphadenopathy - Respiratory Respiratory exam: Present: CTAB. Absent: accessory muscle use, rales, rhonchi, wheezes - Cardiovascular Cardiovascular exam: Present: RRR, +S1, +S2. Absent: diastolic murmur, gallop, rubs, systolic murmur - GI/Abdominal GI/Abdominal exam: Present: normal bowel sounds, soft, tenderness (Mild tenderness on lower abdomen, without guarding or rebound), no peritoneal signs. Absent: distended - Extremities Exam Extremities exam: Present: warm, radial pulses palpable and symmetrical. Absent : calf tenderness, cyanotic, pedal edema - Neurological Exam Neurological exam: Present: CN II-XII intact, oriented X3, no focal deficits. Absent: pronater drift, facial droop, speech deficit - Skin Skin exam: Present: dry, intact Internal Med - H&P Results - EKG Data -: EKG Interpreted by Myself EKG shows normal: sinus rhythm Rate: tachycardia - Assessment and plan (1) DVT prophylaxis Current Visit: No Status: Acute Assessment and plan: EPCDs (2) GI bleed Current Visit: No Status: Acute Assessment and plan: Patient has rectal bleeding. He is not on any blood thinners. Probably due to diverticulosis. - Nothing by mouth, IV fluid, IV PPI - Close monitor BP and H&H - GI consult in a.m. Qualifiers: GI bleed type/associated pathology: diverticulosis Qualified Code(s): K57.91 - Diverticulosis of intestine, part unspecified, without perforation or abscess with bleeding (3) CAD (coronary artery disease), [place] coronary artery Current Visit: No Status: Chronic Assessment and plan: Stable, no chest pain, continue home medications. Qualifiers: [place] vs. transplanted heart: [place] heart Associated angina: with unspecified angina Qualified Code(s): I25.119 - Atherosclerotic heart disease of [place] coronary artery with unspecified angina pectoris (4) Chronic kidney disease (CKD) Current Visit: No Status: Chronic Assessment and plan: Creatinine level is at baseline. Avoid nephrotoxic medications. Corrected hypokalemia with adequate IV fluid. Avoid hypotension. Qualifiers: Chronic kidney disease stage: stage 3 (moderate) Qualified Code(s): N18.3 - Chronic kidney disease, stage 3 (moderate) (5) Diabetes Current Visit: No Status: Chronic Assessment and plan: Continue basal and sliding scale insulin coverage. 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 Diabetes mellitus complication status: with circulatory complication Diabetes mellitus complication detail: with other circulatory complications Qualified Code(s): E11.59 - Type 2 diabetes mellitus with other circulatory complications; Z79.4 - MCFP (current) use of insulin (6) Diverticulosis Current Visit: No Status: Chronic Qualifiers: Diverticulosis site: diverticulosis of large intestine Diverticulosis bleeding: diverticulosis with bleeding Qualified Code(s): K57.31 - Diverticulosis of large intestine without perforation or abscess with bleeding (7) Hypertension Current Visit: Yes Status: Acute Assessment and plan: Patient has hypertension upon arrival to floor with SBP around 200. As patient has rectal bleeding, will give careful antihypertensive medication with low- dose hydralazine IV only when necessary (SBP >170). Closely monitor BP. Qualifiers: Hypertension type: essential hypertension Qualified Code(s): I10 - Essential (primary) hypertension - Time Spent With Patient Total time spent is greater than 50% in coordination of care (as documented) at patient's floor/unit and/or counseling patient: 40 minutes Greater than 35 minutes
[2018-02-16 02:32] LABS: Basophils # 0.1 K/mcL (0.0-0.2); Basophils % 0.6 %; Eosinophils # 0.2 K/mcL (0.0-0.6); Eosinophils % 2.5 %; Hematocrit 37.1 % (37.5-50.1); Hemoglobin 12.6 g/dL (12.9-16.9); Immature Granulocytes % 0.2 % (0-4); Lymphocytes # 2.2 K/mcL (0.6-4.6); Lymphocytes % 26.9 %; Mean Corpuscular Hemoglobin 29.7 pg (28.0-33.3); Mean Corpuscular Volume 87.5 fL (83.0-100.0); Mean Platelet Volume 11.2 fL (9.4-12.4); Monocytes # 0.7 K/mcL (0.0-1.3); Monocytes % 8.4 %; Platelet Count 177 K/mcL (140-400); Red Blood Count 4.24 M/mcL (4.19-5.50); Red Cell Distribution Width 13.5 % (11.5-14.5); Segmented Neutrophils % 61.4 %
[2018-02-16 02:42] LABS: BUN/Creatinine Ratio 20 (6-26); Blood Urea Nitrogen 23 mg/dL (8-23); Calcium 8.1 mg/dL (8.6-10.3); Carbon Dioxide 25 mEq/L (23-29); Chloride 106 mEq/L (98-107); Glucose 299 mg/dL (70-105); Magnesium 1.8 mg/dL (1.6-2.6); Osmolality,Calculated 299 (280-300); Potassium 3.2 mEq/L (3.5-5.1); Sodium 137 mEq/L (136-145); eGFR For African Americans > 60 (> 60); eGFR For Non-African Americans > 60 (> 60)
[2018-02-16] MEDS: Insulin LISPRO 300 UNITS/3 ML VIAL SQ SCH ×4 (06:11→20:46)
[2018-02-16] MEDS: Pantoprazole 40 MG VIAL IVP SCH ×2 (06:19→17:35)
--- NOTE | 2018-02-16 08:21 | Event Note ---
<Miguelito Sanchez - Last Filed: 02/16/18 15:18> Date of Encounter: 02/16/18 Time of Encounter: 08:13 Subjective: Patient resting comfortably in bed. His only complaint this AM is chronic right hip pain. He denies any active bleeding at this time. Patient remains NPO awaiting GI evaluation. Objective: Last Vital Signs Temp 98.4 F 02/16/18 07:53 Pulse 79 02/16/18 07:53 Resp 15 02/16/18 07:53 BP 192/100 02/16/18 07:53 Pulse Ox 94 02/16/18 07:53 Physical Exam: General appearance: Present: A&O X 3, no acute distress, answers questions appropriately Head exam: Present: atraumatic, normocephalic HEENT: Present: mucous membranes dry, PERRL, conjuntiva pink, sclera anicteric Neck exam general surgery: Present: supple, trachea midline. Absent: lymphadenopathy Respiratory exam: Present: CTAB. Absent: accessory muscle use, rales, rhonchi, wheezes Cardiovascular exam: Present: RRR, +S1, +S2. Absent: diastolic murmur, gallop, rubs, systolic murmur GI/Abdominal exam: Present: normal bowel sounds, soft, mild tenderness on lower abdomen, without guarding or rebound, no peritoneal signs or distension. Extremities exam: Present: warm, radial pulses palpable and symmetrical, mild TTP right hip, good ROM. Absent: calf tenderness, cyanotic, pedal edema Neurological exam: Present: CN II-XII intact, oriented X3, no focal deficits. Absent: pronater drift, facial droop, speech deficit Skin exam: Present: dry, intact Assessment and plan (1) GI bleed Current Visit: No Status: Acute Assessment and plan: Patient trasferred from [facility] for rectal bleeding. He is not on any blood thinners. - CT abd/plv reveals diverticulosis without CT evidence of acute diverticulitis. - Nothing by mouth, IV fluid, IV PPI - Close monitor BP and H&H - GI consulted Qualifiers: GI bleed type/associated pathology: diverticulosis Qualified Code(s): K57.91 - Diverticulosis of intestine, part unspecified, without perforation or abscess with bleeding (2) Diverticulosis Current Visit: No Status: Chronic Qualifiers: Diverticulosis site: diverticulosis of large intestine Diverticulosis bleeding: diverticulosis with bleeding Qualified Code(s): K57.31 - Diverticulosis of large intestine without perforation or abscess with bleeding Last colonoscopy 06/25/[address] Walker, revealed diverticulosis (3) CAD (coronary artery disease), [place] coronary artery Current Visit: No Status: Chronic Assessment and plan: Stable, no chest pain, continue home medications. Qualifiers: [place] vs. transplanted heart: [place] heart Associated angina: with unspecified angina Qualified Code(s): I25.119 - Atherosclerotic heart disease of [place] coronary artery with unspecified angina pectoris (4) Chronic kidney disease (CKD) Current Visit: No Status: Chronic Assessment and plan: Creatinine level is at baseline. Avoid nephrotoxic medications. Corrected hypokalemia with adequate IV fluid. Avoid hypotension. Qualifiers: Chronic kidney disease stage: stage 3 (moderate) Qualified Code(s): N18.3 - Chronic kidney disease, stage 3 (moderate) (5) Diabetes Current Visit: No Status: Chronic Assessment and plan: Continue basal and sliding scale insulin coverage. 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 As patient has rectal bleeding, will give careful antihypertensive medication with low- dose hydralazine IV only when necessary (SBP >170). Closely monitor BP. Qualifiers: Hypertension type: essential hypertension Qualified Code(s): I10 - Essential (primary) hypertension (7) Hypokalemia Current Visit: No Status: Acute Assessment and plan: Supplement K Continue monitoring (8) DVT prophylaxis Current Visit: No Status: Acute Assessment and plan: EPCDs Plan discussed with and agreed upon with Dr. Donnelly. <Ruthann Donnelly - Last Filed: 02/16/18 18:25> Date of Encounter: 02/16/18 I examined this patient and my medical decision-making was reviewed with the Resident Physician. I agree with the documented findings, disposition and treatment plan as described except to the extent set forth below.
[2018-02-16] MEDS: Insulin DETEMIR 100 UNIT/ML X5UNITS SQ SCH (08:59)
[2018-02-16] MEDS ORDERED: *HR* Metoprolol 5 MG/5 ML VIAL IVP SCH (09:00)
[2018-02-16 10:00] LABS: INR 1.1; Prothrombin Time 12.4 Seconds (9.4-12.1)
[2018-02-16 10:10] LABS: Albumin 3.7 g/dL (3.5-5.7); Albumin/Globulin Ratio 1.5 (1.1-2.2); Bilirubin,Direct 0.2 mg/dL (0.0-0.2); Bilirubin,Indirect 0.4 mg/dL (0.0-1.2); Bilirubin,Total 0.6 mg/dL (0.3-1.0); Globulin 2.4 g/dL (2.4-3.5); Total Protein 6.1 g/dL (6.4-8.9)
[2018-02-16] MEDS: *HR* Metoprolol 5 MG/5 ML VIAL IVP SCH ×3 (10:46→22:00)
--- NOTE | 2018-02-16 12:46 | Gastroenterology Consult Note ---
Date of Encounter: 02/16/18 Time of Encounter: 10:15 - Assessment and plan (1) Rectal bleeding Current Visit: No Status: Resolved Assessment and plan: Pt complains of bright red rectal bleeding with clots. He had similiar episode 06/10 but prep was poor on colonoscopy. Will plan for colonoscopy tomorrow to rule out avm, bleeding polyps, bleeding internal hemorrhoids, etc. He is not on blood thinners or asa, will check INR and hepatic profile. (2) CAD (coronary artery disease), [place] coronary artery Current Visit: No Status: Chronic Qualifiers: [place] vs. transplanted heart: [place] heart Associated angina: with unspecified angina Qualified Code(s): I25.119 - Atherosclerotic heart disease of [place] coronary artery with unspecified angina pectoris - Time Spent With Patient Total time spent is greater than 50% in coordination of care (as documented) at patient's floor/unit and/or counseling patient: GI History of Present Illness - Data of Consult Patient: new to practice Consult date: 02/16/18 Requesting Physician: Di Post MD - Consult Narrative Reason for consult: BRBPR History of present illness: Mr. Balderrama is a 82 year old male presented to [facility] ER for rectal bleeding. Past medical history is significant for diabetes, hypertension, CAD S/P stent and CABG, diverticulosis. Patient to said he started to have rectal bleeding since 3 days ago. It is blood mixed in stool. The blood is red and the sometimes black. He reports blood clots per rectum yesterday. Patient thought he has certain amount of blood loss but cannot clearly tell how much. Patient feels dizzy, lightheaded, mild nausea but no vomiting. Patient denies diarrhea. Patient denies fever. In [facility] emergency room, patient was found the hemoglobin is stable. BP is at high side. Patient was given IV fluid and IV PPI and transferred to our hospital for further management. Similar episodes in 06/10 and hgb dropped to 7.3, EGD and colon by Dr Walker were normal, he was on plavix at that time. Currently hemoglobin is 12.6 potassium 3.2 all other labs unremarkable. ASA/anticoagulants: none Colonoscopy: 06/10 enlarged prostate, diverticulosis, poor prep EGD: 06/10 normal, small hiatal hernia Past Med Surg Social Fam HX - Past Medical History Medical history: non-contributory, diabetes, hypertension Additional medical history: CABG Psychiatric history: no psych history - Past Surgical History Surgical History: angioplasty/stent, cholecystectomy, coronary bypass (CABG) Additional surgical history: Triple bypass in July 2016. left knee replaced - Social History Smoking Status: Never smoker Smokeless Tobacco Status: No Alcohol use: none Drug use: none - Family History Brother Living Status: Still Living Hx Family Cancer: Yes (Lung) Hx Family Endocrine Disorder: Yes (DM) Father Living Status: Hx Family Cancer: Yes (Stomach) Review of Systems: GI: as per [facility]: denies fever, has some chills EYES: denies yellow discoloration ENT: denies pain with swallowing or difficulty swallowing CARDIO: denies chest pain, palpitations RESP: No Shortness of breath with exertion : denies change in color of urine NEURO: denies any weakness HEME: Denies any bruising MS: complains of right hip pain. DERM: denies rash or itching. sore to his buttocks PSYCH: Denies history of anxiety or depression - Constitutional Vitals: Temp Pulse Resp BP Pulse Ox 98.4 F 82 18 173/88 95 02/16/18 07:53 02/16/18 10:42 02/16/18 10:42 02/16/18 10:42 02/16/18 10:42 Exam: CONSTITUTIONAL:~alert, no acute distress.~HEAD:~normocephalic.~EYES:~no jaundice.~NECK:~no obvious swelling.~HEART:~regular rate and rhythm, no murmurs. ~LUNGS:~bilateral good air entry.~ABDOMEN:~non distended, soft, non tender, no masses palpable, no organomegaly.~RECTAL EXAM:~Deferred.~EXTREMITIES:~no clubbing, cyanosis or edema.~SKIN:~no stigmata of chronic liver disease, mild pallor noted, small healing stage II decubitus noted to left bottocks.~ NEUROLOGIC:~no obvious focal defect.~~~~ Results - Labs CBC & Chem 7: 02/16/18 01:54 02/16/18 01:54 Labs: Last Result Calcium 8.1 mg/dL (8.6-10.3) L 02/16/18 01:54 Entire Visit Hgb 12.6 g/dL (12.9-16.9) L 02/16/18 01:54 Hct 37.1 % (37.5-50.1) L 02/16/18 01:54 PT 12.4 Seconds (9.4-12.1) H 02/16/18 09:09 Total Bilirubin 0.6 mg/dL (0.3-1.0) 02/16/18 09:09 AST 12 Units/L (13-39) L 02/16/18 09:09 ALT 10 Units/L (7-52) 02/16/18 09:09 - ABG ABG results: PT/INR, D-dimer PT 12.4 Seconds (9.4-12.1) H 02/16/18 09:09 Consult Discharge Plan - Plan Referrals: Shelli Lobo MD [Primary Care Provider] -
[2018-02-16] MEDS: *HR* OxyCODONE/APAP 5/325 TABLET PO PRN (15:56)
[2018-02-16 16:09] LABS: Hematocrit 39.1 % (37.5-50.1)
[2018-02-16] MEDS ORDERED: Insulin LISPRO 300 UNITS/3 ML VIAL SQ SCH (16:30)
[2018-02-16] MEDS ORDERED: SODIUM CHLORIDE/NAHCO3/KCL/PEG 4,000 ML SOLN.RECON PO ONE (17:00)
[2018-02-17] MEDS: *HR* Metoprolol 5 MG/5 ML VIAL IVP SCH ×4 (04:12→20:56)
[2018-02-17] MEDS: Pantoprazole 40 MG VIAL IVP SCH ×2 (05:48→17:06)
[2018-02-17 06:26] LABS: Hematocrit 40.2 % (37.5-50.1); Hemoglobin 13.6 g/dL (12.9-16.9); Mean Corpuscular HGB Conc 33.8 g/dL (31.6-35.5); Mean Corpuscular Hemoglobin 29.4 pg (28.0-33.3); Mean Corpuscular Volume 86.8 fL (83.0-100.0); Mean Platelet Volume 10.8 fL (9.4-12.4); Platelet Count 200 K/mcL (140-400); Red Blood Count 4.63 M/mcL (4.19-5.50); Red Cell Distribution Width 13.8 % (11.5-14.5)
[2018-02-17 06:44] LABS: BUN/Creatinine Ratio 10 (6-26); Blood Urea Nitrogen 10 mg/dL (8-23); Calcium 8.5 mg/dL (8.6-10.3); Carbon Dioxide 22 mEq/L (23-29); Chloride 108 mEq/L (98-107); Glucose 227 mg/dL (70-105); Osmolality,Calculated 290 (280-300); Potassium 3.3 mEq/L (3.5-5.1); Sodium 137 mEq/L (136-145); eGFR For African Americans > 60 (> 60); eGFR For Non-African Americans > 60 (> 60)
[2018-02-17] MEDS: Insulin LISPRO 300 UNITS/3 ML VIAL SQ SCH ×4 (07:49→20:56)
[2018-02-17] MEDS: Insulin DETEMIR 100 UNIT/ML X5UNITS SQ SCH (07:50)
[2018-02-17] MEDS ORDERED: Ondansetron 4 MG/2 ML VIAL IVP STA (09:03)
[2018-02-17] MEDS ORDERED: Ondansetron 4 MG/2 ML VIAL IVP PRN (09:04)
--- NOTE | 2018-02-17 09:07 | Internal Med Progress Note ---
Date of Encounter: 02/17/18 Time of Encounter: 09:05 - Assessment and plan (1) GI bleed Current Visit: Yes Status: Acute Assessment and plan: Patient has rectal bleeding. Likely secondary to diverticulosis. H/H stable. GI consulted; appreciate input. Plan for colonoscopy today. NPO for now. Continue gentle IVF and IV PPI. Recheck BMP in AM. Trial of diet after colonoscopy. Consider transition to oral PPI tomorrow if colonoscopy normal and H/H stable. Start IV zofran PRN nausea/vomiting. Qualifiers: GI bleed type/associated pathology: unspecified gastrointestinal hemorrhage type Qualified Code(s): K92.2 - Gastrointestinal hemorrhage, unspecified (2) Diverticulosis Current Visit: Yes Status: Chronic Assessment and plan: Chronic issue. Possible cause of GI bleeding as per above. Management as per above. Qualifiers: Diverticulosis site: diverticulosis of large intestine Diverticulosis bleeding: diverticulosis with bleeding Qualified Code(s): K57.31 - Diverticulosis of large intestine without perforation or abscess with bleeding (3) Hypokalemia Current Visit: Yes Status: Acute Assessment and plan: Give KCl 40 mEq PO once. Recheck BMP in AM. (4) Diabetes Current Visit: Yes Status: Chronic Assessment and plan: Continue accuchecks and SSI QID AC/HS. Continue levemir. 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 Verify and restart home medications. Qualifiers: [place] vs. transplanted heart: [place] heart Associated angina: with unspecified angina Qualified Code(s): I25.119 - Atherosclerotic heart disease of [place] coronary artery with unspecified angina pectoris (6) Chronic kidney disease (CKD) Current Visit: Yes Status: Chronic Assessment and plan: Creatinine level is at baseline. Avoid nephrotoxic medications. Continue gentle IVF while NPO. Qualifiers: Chronic kidney disease stage: stage 3 (moderate) Qualified Code(s): N18.3 - Chronic kidney disease, stage 3 (moderate) (7) Hypertension Current Visit: Yes Status: Chronic Assessment and plan: Elevated BP. Continue hydralazine PRN. Give additional one-time hydralazine 10 mg IV once. Verify home medications and restart home antihypertensives. Monitor vitals closely. Qualifiers: Hypertension type: essential hypertension Qualified Code(s): I10 - Essential (primary) hypertension (8) DVT prophylaxis Current Visit: Yes Status: Acute Assessment and plan: No anticoagulation at this time due to GI bleed. Continue SCDs. - Time Spent With Patient Total time spent is greater than 50% in coordination of care (as documented) at patient's floor/unit and/or counseling patient: less than 15 minutes - Subjective Interval history: Patient had no acute events overnight. He states that he did not get any sleep last night due to bowel prep. He has some nausea this AM. He denies fever, chills, vomiting, abdominal pain, changes in bladder, and changes in bowel. He noticed some dark stool overnight. He has no other complaints at this time. - Constitutional Vitals: Temp Pulse Resp BP Pulse Ox 98.2 F 91 14 197/91 94 02/17/18 04:08 02/17/18 04:08 02/17/18 04:08 02/17/18 05:49 02/17/18 04:08 General appearance: Present: cooperative, A&O X 3, no acute distress, answers questions appropriately - Respiratory Respiratory exam: Present: CTAB. Absent: accessory muscle use, rales, rhonchi, wheezes Additional comments: Normal WOB - Cardiovascular Cardiovascular exam: Present: RRR, +S1, +S2. Absent: diastolic murmur, gallop, rubs, systolic murmur Additional comments: No BLE edema - GI/Abdominal GI/Abdominal exam: Present: normal bowel sounds, soft. Absent: distended, hepatomegaly, mass, splenomegaly, tenderness - Psychiatric Psychiatric exam: Present: normal affect, normal mood. Absent: agitated, anxious, depressed - Skin Skin exam: Present: dry, intact, warm. Absent: cyanosis, rash Internal Medicine: Result - Labs CBC & Chem 7: 02/17/18 06:06 02/17/18 06:06 Labs: Short CBC 02/16/18 02/17/18 Range/Units 16:00 06:06 WBC 9.2 (4.3-11.1) K/mcL Hgb 13.0 13.6 (12.9-16.9) g/dL Hct 39.1 40.2 (37.5-50.1) % Plt Count 200 (140-400) K/mcL BMP 02/17/18 06:06 Sodium 137 Potassium 3.3 L Chloride 108 H Carbon Dioxide 22 L BUN 10 Creatinine 0.97 Glucose 227 H Calcium 8.5 L Liver Function 02/16/18 Range/Units 09:09 Total Bilirubin 0.6 (0.3-1.0) mg/dL Direct Bilirubin 0.2 (0.0-0.2) mg/dL AST 12 L (13-39) Units/L ALT 10 (7-52) Units/L Alkaline Phosphatase 41 (34-104) Units/L Albumin 3.7 (3.5-5.7) g/dL - ABG Interpretation ABG results: PT/INR, D-dimer PT 12.4 Seconds (9.4-12.1) H 02/16/18 09:09 Consult Discharge Plan - Plan Referrals: Shelli Lobo MD [Primary Care Provider] -
[2018-02-17] MEDS: 0.9 % Sodium Chloride 1,000 ML IVC SCH (10:07)
[2018-02-17] MEDS ORDERED: *HR* Propofol 200 MG/20 ML VIAL IVP ONE (13:01)
[2018-02-17] MEDS ORDERED: Lidocaine -MPF 2% 2 ML VIAL ONE (13:02)
--- NOTE | 2018-02-17 14:01 | Anesthesia Evaluation PreOp ---
Date of Encounter: 02/17/18 Time of Encounter: 14:00 - Past History Planned Operation: colonoscopy Cardiac History: HTN, Cardiac Surgery, Other (s/p angioplasty) Pulmonary History: Denies Any Significant HX [employer] History: Denies Any Significant HX, CVA Other Medical History: Diabetes Type I Anesthesia History: No Prior Anesthetic Complications, Past Anesthesia Alcohol Use: none Drug use: none Medications and Allergies Insulin DETEMIR [Levemir] 15 unit SQ BID 08/16/17 [History] Metoprolol [Lopressor] 50 mg PO BID 08/16/17 [History] Donepezil [Aricept] 5 mg PO HS 02/17/18 [History] Ergocalciferol (VITAMIN D2) [Vitamin D2] 50,000 unit PO QWEEK 02/17/18 [History] Promethazine [Phenergan] 25 mg PO Q6-8H PRN 02/17/18 [History] 3 Allergy/AdvReac Type Severity Reaction Status Date / Time morphine Allergy See Verified 02/15/18 19:07 Comments - Meds/Allergy Pre-op Review Medications Reviewed: Yes Allergies Reviewed: Yes Beta Blockers on Current Med List: Yes ([id number]) Anesthesia Results - Labs 02/17/18 06:06 02/17/18 06:06 - Imaging EKG: report reviewed (sinus rhythm) Anesthesia Exam Selected Entries 02/17/18 10:22 02/17/18 12:05 Temperature 98.6 F Pulse Rate 98 Respiratory Rate 18 Blood Pressure 174/88 Weight: 79 NPO (# of Hours): over 8 hours - HEENT Pupil (Motor): Pupils equal Mallampati: II Denture Type: Upper: Complete Oral Opening: Greater than 3 - Cardiac Rhythm: Regular Murmur: None - Pulmonary Breath Sounds: bilateral Clear Respiratory Effort: Symmetrical Anesthesia Assess/Plan ASA Score: 3 Modified Casa Scale for Level of Consciousness: Cooperative, oriented, and tranquil Anesthetic Plan: MAC Monitoring Plan: Standard Monitors Recovery Plan: Other (Discussed MAC anesthesia, agreed to proceed.)
[2018-02-17] MEDS ORDERED: *HR* Labetalol 20 MG/4 ML SYRINGE IVP ONE (14:05)
[2018-02-17] MEDS ORDERED: *HR* Labetalol 100 MG/20 ML MDV ONE (14:06)
[2018-02-17] MEDS: *HR* OxyCODONE/APAP 5/325 TABLET PO PRN (19:50)
[2018-02-18] MEDS: 0.9 % Sodium Chloride 1,000 ML IVC SCH ×2 (03:26→11:49)
[2018-02-18] MEDS: *HR* Metoprolol 5 MG/5 ML VIAL IVP SCH ×2 (04:51→09:50)
[2018-02-18 06:18] LABS: Basophils # 0.1 K/mcL (0.0-0.2); Basophils % 0.5 %; Eosinophils # 0.2 K/mcL (0.0-0.6); Eosinophils % 1.7 %; Hematocrit 36.2 % (37.5-50.1); Hemoglobin 12.1 g/dL (12.9-16.9); Immature Granulocytes % 0.4 % (0-4); Lymphocytes # 1.2 K/mcL (0.6-4.6); Lymphocytes % 12.4 %; Mean Corpuscular HGB Conc 33.4 g/dL (31.6-35.5); Mean Corpuscular Hemoglobin 29.9 pg (28.0-33.3); Mean Corpuscular Volume 89.4 fL (83.0-100.0); Mean Platelet Volume 11.2 fL (9.4-12.4); Monocytes # 0.8 K/mcL (0.0-1.3); Monocytes % 7.6 %; Neutrophils # 7.6 K/mcL (1.6-8.9); Platelet Count 163 K/mcL (140-400); Red Blood Count 4.05 M/mcL (4.19-5.50); Segmented Neutrophils % 77.4 %
[2018-02-18 06:30] LABS: BUN/Creatinine Ratio 11 (6-26); Blood Urea Nitrogen 12 mg/dL (8-23); Calcium 8.2 mg/dL (8.6-10.3); Carbon Dioxide 23 mEq/L (23-29); Chloride 108 mEq/L (98-107); Glucose 263 mg/dL (70-105); Osmolality,Calculated 295 (280-300); Potassium 3.4 mEq/L (3.5-5.1); Sodium 138 mEq/L (136-145); eGFR For African Americans > 60 (> 60); eGFR For Non-African Americans > 60 (> 60)
[2018-02-18] MEDS: Insulin LISPRO 300 UNITS/3 ML VIAL SQ SCH ×4 (06:33→17:05)
[2018-02-18] MEDS: Pantoprazole 40 MG VIAL IVP SCH (06:34)
[2018-02-18] MEDS: Insulin DETEMIR 100 UNIT/ML X5UNITS SQ SCH ×3 (08:07→20:11)
[2018-02-18] MEDS: *HR* OxyCODONE/APAP 5/325 TABLET PO PRN ×2 (09:50→20:10)
--- NOTE | 2018-02-18 14:24 | Internal Med Progress Note ---
Date of Encounter: 02/18/18 Time of Encounter: 14:22 - Assessment and plan (1) GI bleed Current Visit: Yes Status: Resolved Assessment and plan: Rectal bleeding resolved. H/H stable. Likely secondary to diverticulosis. GI consulted; appreciate input. Colonoscopy yesterday showed diverticulosis, adherent clot, and non-bleeding internal hemorrhoids. Tolerating diabetic diet. Discontinue IVF. Switch IV PPI to PO omeprazole. Recheck CBC in AM. Continue IV zofran PRN nausea/vomiting. Plan for discharge tomorrow once BP controlled. Qualifiers: GI bleed type/associated pathology: unspecified gastrointestinal hemorrhage type Qualified Code(s): K92.2 - Gastrointestinal hemorrhage, unspecified (2) Diverticulosis Current Visit: Yes Status: Chronic Assessment and plan: Chronic issue. Possible cause of GI bleeding as per above. Management as per above. Qualifiers: Diverticulosis site: diverticulosis of large intestine Diverticulosis bleeding: diverticulosis with bleeding Qualified Code(s): K57.31 - Diverticulosis of large intestine without perforation or abscess with bleeding (3) Hypokalemia Current Visit: Yes Status: Acute Assessment and plan: Improved. Give KCl 20 mEq PO once. Recheck BMP in AM. (4) Diabetes Current Visit: Yes Status: Chronic Assessment and plan: Continue accuchecks and increased to high dose SSI QID AC/HS. Increase levemir to home 15 units BID. 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 Continue home medications. Qualifiers: [place] vs. transplanted heart: [place] heart Associated angina: with unspecified angina Qualified Code(s): I25.119 - Atherosclerotic heart disease of [place] coronary artery with unspecified angina pectoris (6) Chronic kidney disease (CKD) Current Visit: Yes Status: Chronic Assessment and plan: Creatinine level is at baseline. Avoid nephrotoxic medications. Encourage PO hydration. Qualifiers: Chronic kidney disease stage: stage 3 (moderate) Qualified Code(s): N18.3 - Chronic kidney disease, stage 3 (moderate) (7) Hypertension Current Visit: Yes Status: Chronic Assessment and plan: Elevated BP. Restart home metoprolol. Start lisinopril 20 mg QD. Continue hydralazine PRN. Monitor vitals closely. Stressed importance of medication compliance today with patient and . Plan for discharge home tomorrow if BP improved on new regimen. Qualifiers: Hypertension type: essential hypertension Qualified Code(s): I10 - Essential (primary) hypertension (8) DVT prophylaxis Current Visit: Yes Status: Acute Assessment and plan: No anticoagulation at this time due to GI bleed. Continue SCDs. - Time Spent With Patient Total time spent is greater than 50% in coordination of care (as documented) at patient's floor/unit and/or counseling patient: less than 15 minutes - Subjective Interval history: Patient had no acute events overnight. He states that he had some nausea with breakfast this morning, however he had no issues with lunch. He denies fever, chills, chest pain, headache, SOB, vomiting, abdominal pain, changes in bladder , and changes in bowel. He states no more dark stool. He has no other complaints at this time. - Constitutional Vitals: Temp Pulse Resp BP Pulse Ox 98.1 F 79 18 163/77 92 02/18/18 11:32 02/18/18 11:32 02/18/18 11:32 02/18/18 13:09 02/18/18 11:32 General appearance: Present: cooperative, A&O X 3, pleasant, no acute distress, answers questions appropriately - Respiratory Respiratory exam: Present: CTAB. Absent: accessory muscle use, rales, rhonchi, wheezes Additional comments: Normal WOB - Cardiovascular Cardiovascular exam: Present: RRR, +S1, +S2. Absent: diastolic murmur, gallop, rubs, systolic murmur Additional comments: No BLE edema - GI/Abdominal GI/Abdominal exam: Present: normal bowel sounds, soft. Absent: distended, hepatomegaly, mass, splenomegaly, tenderness - Psychiatric Psychiatric exam: Present: normal affect, normal mood. Absent: agitated, anxious, depressed - Skin Skin exam: Present: dry, intact, warm. Absent: cyanosis, rash Internal Medicine: Result - Labs CBC & Chem 7: 02/18/18 05:31 02/18/18 05:31 Labs: Short CBC 06/27/18 Range/Units 05:31 WBC 9.9 (4.3-11.1) K/mcL Hgb 12.1 L D (12.9-16.9) g/dL Hct 36.2 L (37.5-50.1) % Plt Count 163 (140-400) K/mcL Neutrophils # 7.6 (1.6-8.9) K/mcL BMP 02/18/18 05:31 Sodium 138 Potassium 3.4 L Chloride 108 H Carbon Dioxide 23 BUN 12 Creatinine 1.07 Glucose 263 H Calcium 8.2 L - ABG Interpretation ABG results: PT/INR, D-dimer PT 12.4 Seconds (9.4-12.1) H 02/16/18 09:09 - VTE Documentation of Mechanical Device: Intermittent pneumatic compression device Consult Discharge Plan - Plan Referrals: Shelli Lobo MD [Primary Care Provider] - 03/05/18 3:30 pm
[2018-02-18] MEDS: Cholecalciferol (D-3) 1,000 UNIT TABLET PO SCH (14:45)
[2018-02-18] MEDS: Lisinopril 20 MG TABLET PO SCH (14:46)
[2018-02-18] MEDS ORDERED: Insulin LISPRO 300 UNITS/3 ML VIAL SQ SCH (21:00)
[2018-02-19] MEDS: *HR* OxyCODONE/APAP 5/325 TABLET PO PRN ×2 (05:46→10:57)
[2018-02-19 05:54] LABS: Basophils % 0.3 %; Eosinophils % 0.3 %; Hematocrit 39.5 % (37.5-50.1); Hemoglobin 12.9 g/dL (12.9-16.9); Immature Granulocytes % 0.5 % (0-4); Lymphocytes # 1.1 K/mcL (0.6-4.6); Lymphocytes % 8.3 %; Mean Corpuscular HGB Conc 32.7 g/dL (31.6-35.5); Mean Corpuscular Hemoglobin 29.3 pg (28.0-33.3); Mean Corpuscular Volume 89.6 fL (83.0-100.0); Mean Platelet Volume 11.5 fL (9.4-12.4); Monocytes # 0.6 K/mcL (0.0-1.3); Monocytes % 4.6 %; Neutrophils # 11.1 K/mcL (1.6-8.9); Platelet Count 154 K/mcL (140-400); Red Blood Count 4.41 M/mcL (4.19-5.50); Red Cell Distribution Width 14.1 % (11.5-14.5)
[2018-02-19 06:17] LABS: BUN/Creatinine Ratio 14 (6-26); Blood Urea Nitrogen 15 mg/dL (8-23); Calcium 8.5 mg/dL (8.6-10.3); Carbon Dioxide 19 mEq/L (23-29); Chloride 108 mEq/L (98-107); Glucose 269 mg/dL (70-105); Osmolality,Calculated 292 (280-300); Potassium 3.9 mEq/L (3.5-5.1); Sodium 136 mEq/L (136-145); eGFR For African Americans > 60 (> 60); eGFR For Non-African Americans > 60 (> 60)
[2018-02-19] MEDS: Insulin LISPRO 300 UNITS/3 ML VIAL SQ SCH ×2 (07:34→11:33)
[2018-02-19] MEDS: Insulin DETEMIR 100 UNIT/ML X5UNITS SQ SCH (07:34)
[2018-02-19] MEDS: Cholecalciferol (D-3) 1,000 UNIT TABLET PO SCH (07:35)
[2018-02-19] MEDS: Lisinopril 20 MG TABLET PO SCH (07:35)
[2018-02-19] MEDS ORDERED: Lisinopril 20 MG TABLET PO SCH (08:11)
[2018-02-19] MEDS ORDERED: Lisinopril 20 MG TABLET PO STA (08:16)
--- NOTE | 2018-02-19 08:19 | Discharge Summary ---
- NOTES TO OUTPATIENT PROVIDER Notes to Outpatient Provider: Follow up with PCP in 2-3 days after discharge. Recheck blood pressure at that time and adjust anti-hypertensives as necessary. Recheck BMP and CBC at that time. Date of Encounter: 02/19/18 Time of Encounter: 08:17 - Discharge Diagnosis (1) GI bleed Priority: Primary Status: Resolved Qualifiers: GI bleed type/associated pathology: unspecified gastrointestinal hemorrhage type Qualified Code(s): K92.2 - Gastrointestinal hemorrhage, unspecified (2) Diverticulosis Priority: Secondary Status: Chronic Qualifiers: Diverticulosis site: diverticulosis of large intestine Diverticulosis bleeding: diverticulosis with bleeding Qualified Code(s): K57.31 - Diverticulosis of large intestine without perforation or abscess with bleeding (3) Hypokalemia Priority: Secondary Status: Resolved (4) Diabetes Priority: Secondary Status: Chronic Qualifiers: Diabetes mellitus type: type 2 Diabetes mellitus [facility] insulin use: with continuous churn buttermaker use Diabetes mellitus complication status: with circulatory complication Diabetes mellitus complication detail: with other circulatory complications Qualified Code(s): E11.59 - Type 2 diabetes mellitus with other circulatory complications; 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 transplanted heart: [place] heart Associated angina: with unspecified angina Qualified Code(s): I25.119 - Atherosclerotic heart disease of [place] coronary artery with unspecified angina pectoris (6) Chronic kidney disease (CKD) Priority: Secondary Status: Chronic Qualifiers: Chronic kidney disease stage: stage 3 (moderate) Qualified Code(s): N18.3 - Chronic kidney disease, stage 3 (moderate) (7) Hypertension Priority: Secondary Status: Chronic Qualifiers: Hypertension type: essential hypertension Qualified Code(s): I10 - Essential (primary) hypertension (8) DVT prophylaxis Priority: Secondary Status: Acute Hospital course: Mr. Balderrama is a 82 year old male admitted for rectal bleeding likely secondary to diverticulosis. Patient admitted to general medical floor with telemetry. He was started on IV PPI. He was made NPO and started on IVF. GI was consulted. Colonoscopy was performed and showed multiple diverticuli with a single adherent clot; and multiple non-bleeding internal hemorrhoids. Rectal bleeding resolved. Patient had some hypertension. Home metoprolol was restarted. Lisinopril was started, and titrated up to 40 mg QD. He will follow up with PCP in 2-3 days after discharge. They can recheck blood pressure at that time and adjust anti-hypertensives as necessary. They can also recheck BMP and CBC at that time. Patient is asymptomatic today. Patient has met maximum benefit of this hospitalization and will be discharged home in stable condition. Discharge discussed with: patient, nurse, other (Pharmacist) - Time Spent with Patient Total time spent providing and/or coordinating discharge services: Greater than 30 minutes - Discharge Medications Prescriptions: Lisinopril [Zestril] 40 mg PO DAILY 7 Days #7 tablet Omeprazole [PriLOSEC] 40 mg PO DAILY@0630 7 Days #7 capsule. Home Medications: Insulin DETEMIR [Levemir] 15 unit SQ BID 08/16/17 [History] Metoprolol [Lopressor] 50 mg PO BID 08/16/17 [History] Donepezil [Aricept] 5 mg PO HS 02/17/18 [History] Ergocalciferol (VITAMIN D2) [Vitamin D2] 50,000 unit PO QWEEK 02/17/18 [History] Promethazine [Phenergan] 25 mg PO Q6-8H PRN 02/17/18 [History] Lisinopril [Zestril] 40 mg PO DAILY 7 Days #7 tablet 02/19/18 [Rx] Omeprazole [PriLOSEC] 40 mg PO DAILY@0630 7 Days #7 capsule. 02/19/18 [Rx] Allergies/Adverse Reactions: 3 Allergy/AdvReac Type Severity Reaction Status Date / Time morphine Allergy See Verified 02/15/18 19:07 Comments Date of admission: 02/16/18 01:30 Primary care physician: Shelli Fisher Consults: 02/16/18 01:26 Consult to Gastroenterology [CONS] Routine Consulting Provider: [facility] Reason for Consult: Rectal bleed Time Notified: 08:30 Call Completed: Yes 02/17/18 08:51 Consult for Pharmacy Education [CONS] Stat Reason for Consult: Verify home medications. Thanks. Call Completed: No Discharging clinician: Fredy Dempsey Anticipated date of discharge: 02/19/18 - Constitutional Vitals: Temp Pulse Resp BP Pulse Ox 98.5 F 88 18 162/66 93 02/19/18 05:42 02/19/18 05:42 02/19/18 05:42 02/19/18 05:42 02/19/18 05:42 General appearance: Present: cooperative, A&O X 3, pleasant, no acute distress, obese, answers questions appropriately - Respiratory Respiratory exam: Present: CTAB. Absent: accessory muscle use, rales, rhonchi, wheezes Additional comments: Normal WOB - Cardiovascular Cardiovascular exam: Present: RRR, +S1, +S2. Absent: diastolic murmur, gallop, rubs, systolic murmur Additional comments: No BLE edema - GI/Abdominal GI/Abdominal exam: Present: normal bowel sounds, soft. Absent: distended, hepatomegaly, mass, splenomegaly, tenderness - Psychiatric Psychiatric exam: Present: normal affect, normal mood. Absent: agitated, anxious, depressed - Skin Skin exam: Present: dry, intact, warm. Absent: cyanosis, rash - Patient Status Disposition: Home, Self-Care Condition: Good Overall status at discharge: patient is progressing back to baseline - Discharge Instructions Follow Up With: Shelli Lobo MD [Primary Care Provider] - 03/05/18 3:30 pm Additional Instructions: Follow up with PCP in 2-3 days after discharge. Recheck blood pressure at that time and adjust anti-hypertensives as necessary. Recheck BMP and CBC at that time. - Diet and Activity Activity: resume usual activities as tolerated Diet: diabetic diet, low fat, low cholesterol, low salt diet, other (Cardiac Diet) - VTE Reasons for not Prescribing Prophylaxis: Medical contraindication (GI Bleed) Documentation of Mechanical Device: Intermittent pneumatic compression device
[2018-02-19 10:18] VITALS: BP 203/101
[2018-02-19] MEDS ORDERED: cloNIDine HCl 0.1 MG TABLET PO ONE (10:32)
[2018-02-20] MEDS ORDERED: Lisinopril 20 MG TABLET PO SCH (09:00)
== END 2018-02-19 13:27 | disposition home or self-care (01) | DRG 379 ==
LOC: 3ANU
PROVIDERS: ADMIT Internal Medicine; ATTEND Internal Medicine

== ENCOUNTER 2018-03-01 09:23 | Inpatient (IN) ==
[~2018-03-01 09:23] MED LIST: Aminoglycoside Consult 1 EACH MC ONE
--- NOTE | 2018-03-01 09:30 | Emergency Department Note ---
Disposition Clinical Impression: HCAP (healthcare-associated pneumonia) Disposition: Admitted As Inpatient Condition: Good Time of Disposition: 12:29 Chest Pain HPI - General Chief Complaint: ED Shortness of Breath/Dyspnea Stated Complaint: JULIAN, chest pain Time Seen by Provider: 03/01/18 09:27 Vital Signs Reviewed: Yes Nursing Notes Reviewed: Yes - History of Present Illness HPI Narrative: 82yo male presents from home for evaluation of chest pain, dyspnea, and weakness. Onset yesterday evening. Progressively worse. Associated with 3 days of cough with sputum production. Patient's primary concern is his dyspnea , not his chest pain. PMH: Diverticulosis with subsequent and recent GI bleed; Discharged 4d ago from this facilicy. CAD with ACS status post CABG and stent. CHF. CKD. Hypertension. Insulin dependent type 2 diabetes. COPD on 2 L oxygen at home at baseline. ROS: Pos: as above Neg: fever, chills, vomiting, dizziness, change in bowl or bladder habits, melena, hematochezia, hemetemesis. Severity scale (1-10): 8 - Related Data Home Medications Medication Instructions Recorded Confirmed Insulin DETEMIR [Levemir] 15 unit SQ BID 08/16/17 03/01/18 Metoprolol [Lopressor] 50 mg PO BID 08/16/17 03/01/18 Donepezil [Aricept] 5 mg PO HS 02/17/18 03/01/18 Ergocalciferol (VITAMIN D2) 50,000 unit PO QWEEK 02/17/18 03/01/18 [Vitamin D2] metFORMIN [Glucophage] 500 mg PO BIDWM 02/26/18 03/01/18 Previous Rx's Medication Instructions Recorded Lisinopril [Zestril] 40 mg PO DAILY 7 Days #7 tablet 02/19/18 Omeprazole [PriLOSEC] 40 mg PO DAILY@0630 7 Days #7 02/19/18 capsule. Ondansetron ODT [Zofran ODT] 4 mg SL Q6HR PRN #8 tab.rapdis 02/26/18 Promethazine [Phenergan] 25 mg PO Q6HR PRN #16 tablet 02/26/18 Allergies Allergy/AdvReac Type Severity Reaction Status Date / Time morphine Allergy See Verified 02/26/18 08:22 Comments All systems ED: reviewed and negative except as stated. Review of Systems: As Per HPI Chest Pain PMH - Past Medical History Medical history: Reports: CHF, COPD, coronary artery disease, diabetes, GI bleed , hypertension, renal disease, other (Diverticular disease) Surgical history: Reports: angioplasty/stent, cholecystectomy, coronary bypass ( CABG), orthopedic, other (Left knee replacement) Psychiatric history: Reports: no psych history - Social History Smoking Status: Former smoker Alcohol use: Reports: none Drug use: Reports: none Physical Exam Vital Signs Reviewed General: Patient is alert, oriented, and in mild respiratory distress; require supplemental oxygen with no increased work of breathing. Head: atraumatic, normocephalic Eye: normal appearance, no scleral icterus, no conjunctival injection ENT: mucous membranes moist, normal external ear exam Neck: normal inspection, trachea midline, full ROM Chest: normal inspection, symmetric chest rise Respiratory: Good respiratory effort. Bilateral breath sounds are equal with LLL crackles. Cardiovascular: Regular rate and rhythm. No clicks, rubs, gallops, or murmors. Normal heart sounds. 2+ pitting pedal edema biilaterally. Abdomen: Bowel sounds present normoactive x-4 quadrants. Abdomen is soft, nondistended, and nontender. No guarding or rebound. Musculoskeletal: Spontaneously moving all extremities. Skin: warm, dry, intact. Neuro: Alert and oriented x4. Sensation light touch intact. Psych: Patient's affect is appropriate for situation. Course Course Narrative: Cardiac echo 07/29/17: LVEF 55%. Normal LV chamber size and function. Mild concentric left ventricular hypertrophy. Atypical septal motion consistent with post-operative status. Mild left ventricular diastolic dysfunction. Normal right ventricular structure and function. Severely dilated left atrium. Mild-moderate aortic regurgitation. Moderate mitral regurgitation. No evidence of pulmonary hypertension. Chest x-ray shows right-sided findings suspicious for pneumonia. This confirms my physical exam findings of right basilar crackles. Patient was recently admitted to the hospital. Will begin antibiotics against HCAP which may be deescalated on admission. I discussed the above with the patient. He is agreeable for admission for continued evaluation and management. I discussed the patient the admitting hospitalist, Dr. Virk, who agrees to accept the patient for continued evaluation and management for pneumonia. EKG dated 01 March 2018 at 09:35 interpreted as sinus rhythm with rate of 87. VA 180, QRS 94, QTC 447. Left axis. Inferior Q waves. Nonspecific ST-T changes. Compared to previous EKG dated 02/26/2018 as well as previous EKG dated 02/15/2018 showing no acute ischemic changes or comparison. Chest X-Ray 03/01/18 09:33 IMPRESSION: Patchy airspace opacity in the right upper and lower lung which could reflect pneumonia in the appropriate clinical setting. Recommend short-term follow-up to ensure resolution. Probable trace bilateral pleural effusions. D/ / Cary Maria MD / Cary Maria MD Interpreting Provider: Cary Maria MD Vital Signs Pulse Rate 81 03/01/18 09:23 Respiratory Rate 18 03/01/18 09:23 Blood Pressure 202/92 03/01/18 09:23 O2 Sat by Pulse Oximetry 94 03/01/18 09:23 Temperature 98.3 F 03/01/18 09:49 Pulse Rate 76 03/01/18 10:44 Respiratory Rate 16 03/01/18 10:44 Blood Pressure 172/82 03/01/18 10:44 O2 Sat by Pulse Oximetry 96 03/01/18 10:44 Oxygen Delivery Oxygen Delivery Nasal Cannula Chest Pain - Lab Data Result diagrams: 03/01/18 09:49 03/01/18 09:49 Lab Results 03/01/18 03/01/18 03/01/18 Range/Units 09:49 09:49 09:49 WBC 11.8 H (4.3-11.1) K/mcL RBC 4.77 (4.19-5.50) M/mcL Hgb 13.9 D (12.9-16.9) g/dL Hct 41.7 (37.5-50.1) % MCV 87.4 (83.0-100.0) fL MCH 29.1 (28.0-33.3) pg MCHC 33.3 (31.6-35.5) g/dL RDW 13.5 (11.5-14.5) % Plt Count 293 (140-400) K/mcL MPV 10.9 (9.4-12.4) fL Immature Gran % 0.5 (0-4) % Seg Neutrophils % 76.3 % Lymphocytes % 14.6 % Monocytes % 6.4 % Eosinophils % 1.4 % Basophils % 0.8 % Neutrophils # 9.0 H (1.6-8.9) K/mcL Lymphocytes # 1.7 (0.6-4.6) K/mcL Monocytes # 0.8 (0.0-1.3) K/mcL Eosinophils # 0.2 (0.0-0.6) K/mcL Basophils # 0.1 (0.0-0.2) K/mcL PT 12.2 H (9.4-12.1) Seconds INR 1.1 APTT 37.0 H (26.0-36.0) Seconds Sodium 138 (136-145) mEq/L Potassium 3.3 L (3.5-5.1) mEq/L Chloride 101 (98-107) mEq/L Carbon Dioxide 26 (23-29) mEq/L BUN 15 (8-23) mg/dL Creatinine 1.16 (0.70-1.30) mg/dL Est GFR ( Amer) > 60 (> 60) Est GFR (Non-Af Amer) > 60 (> 60) BUN/Creatinine Ratio 13 (6-26) Glucose 269 H (70-105) mg/dL Calculated Osmolality 296 (280-300) Calcium 9.0 (8.6-10.3) mg/dL Troponin I < 0.03 (< 0.04) ng/mL Specimen Rejected 03/01/18 Range/Units 10:53 WBC (4.3-11.1) K/mcL RBC (4.19-5.50) M/mcL Hgb (12.9-16.9) g/dL Hct (37.5-50.1) % MCV (83.0-100.0) fL MCH (28.0-33.3) pg MCHC (31.6-35.5) g/dL RDW (11.5-14.5) % Plt Count (140-400) K/mcL MPV (9.4-12.4) fL Immature Gran % (0-4) % Seg Neutrophils % % Lymphocytes % % Monocytes % % Eosinophils % % Basophils % % Neutrophils # (1.6-8.9) K/mcL Lymphocytes # (0.6-4.6) K/mcL Monocytes # (0.0-1.3) K/mcL Eosinophils # (0.0-0.6) K/mcL Basophils # (0.0-0.2) K/mcL PT (9.4-12.1) Seconds INR APTT (26.0-36.0) Seconds Sodium (136-145) mEq/L Potassium (3.5-5.1) mEq/L Chloride (98-107) mEq/L Carbon Dioxide (23-29) mEq/L BUN (8-23) mg/dL Creatinine (0.70-1.30) mg/dL Est GFR ( Amer) (> 60) Est GFR (Non-Af Amer) (> 60) BUN/Creatinine Ratio (6-26) Glucose (70-105) mg/dL Calculated Osmolality (280-300) Calcium (8.6-10.3) mg/dL Troponin I (< 0.04) ng/mL Specimen Rejected Accident Heart Score - Score History: Slightly Suspicious EKG: Non Specific repolarisation Disturbance Age: Greater than 65 Risk Factors: Equal/Greater than 3 risk factor or history of atherosclerotic disease Troponin: Less than normal limit HEART Score Total: 5
[2018-03-01] MEDS ORDERED: *HR* Labetalol 20 MG/4 ML SYRINGE IVP ONE ×2 (09:47→18:47)
[2018-03-01 10:00] LABS: Basophils # 0.1 K/mcL (0.0-0.2); Basophils % 0.8 %; Eosinophils # 0.2 K/mcL (0.0-0.6); Eosinophils % 1.4 %; Hematocrit 41.7 % (37.5-50.1); Hemoglobin 13.9 g/dL (12.9-16.9); Immature Granulocytes % 0.5 % (0-4); Lymphocytes # 1.7 K/mcL (0.6-4.6); Lymphocytes % 14.6 %; Mean Corpuscular HGB Conc 33.3 g/dL (31.6-35.5); Mean Corpuscular Hemoglobin 29.1 pg (28.0-33.3); Mean Corpuscular Volume 87.4 fL (83.0-100.0); Mean Platelet Volume 10.9 fL (9.4-12.4); Monocytes # 0.8 K/mcL (0.0-1.3); Monocytes % 6.4 %; Platelet Count 293 K/mcL (140-400); Red Blood Count 4.77 M/mcL (4.19-5.50); Red Cell Distribution Width 13.5 % (11.5-14.5); Segmented Neutrophils % 76.3 %
[2018-03-01 10:11] LABS: INR 1.1; Prothrombin Time 12.2 Seconds (9.4-12.1)
[2018-03-01] MEDS ORDERED: *HR* Labetalol 100 MG/20 ML MDV IVP ONE (10:15)
[2018-03-01 10:25] LABS: BUN/Creatinine Ratio 13 (6-26); Blood Urea Nitrogen 15 mg/dL (8-23); Carbon Dioxide 26 mEq/L (23-29); Chloride 101 mEq/L (98-107); Glucose 269 mg/dL (70-105); Osmolality,Calculated 296 (280-300); Potassium 3.3 mEq/L (3.5-5.1); Sodium 138 mEq/L (136-145); Troponin I < 0.03 ng/mL (< 0.04); eGFR For African Americans > 60 (> 60); eGFR For Non-African Americans > 60 (> 60)
[2018-03-01] MEDS ORDERED: Cefepime HCl 2,000 MG in 0.9 % Sodium Chloride Mini Bag 100 ML IVPB STA (10:26)
[2018-03-01] MEDS ORDERED: Levofloxacin 750 MG/150 ML 750 MG/150 ML BAG IVPB ONE (10:27)
--- NOTE | 2018-03-01 10:52 | Emergency Department Note ---
Disposition Clinical Impression: HCAP (healthcare-associated pneumonia) Disposition: Admitted As Inpatient Referrals: Pawel Nolen DO [Primary Care Provider] - General Adult HPI - General Chief complaint: ED Shortness of Breath/Dyspnea Stated complaint: JULIAN, chest pain Time Seen by Provider: 03/01/18 09:27 Source: patient, family Limitations: no limitations - History of Present Illness Pain Scale: 6 - Related Data Home Medications Medication Instructions Recorded Confirmed Insulin DETEMIR [Levemir] 15 unit SQ BID 08/16/17 03/01/18 Metoprolol [Lopressor] 50 mg PO BID 08/16/17 03/01/18 Donepezil [Aricept] 5 mg PO HS 02/17/18 03/01/18 Ergocalciferol (VITAMIN D2) 50,000 unit PO QWEEK 02/17/18 03/01/18 [Vitamin D2] metFORMIN [Glucophage] 500 mg PO BIDWM 02/26/18 03/01/18 Previous Rx's Medication Instructions Recorded Lisinopril [Zestril] 40 mg PO DAILY 7 Days #7 tablet 02/19/18 Omeprazole [PriLOSEC] 40 mg PO DAILY@0630 7 Days #7 02/19/18 capsule. Ondansetron ODT [Zofran ODT] 4 mg SL Q6HR PRN #8 tab.rapdis 02/26/18 Promethazine [Phenergan] 25 mg PO Q6HR PRN #16 tablet 02/26/18 Allergies Allergy/AdvReac Type Severity Reaction Status Date / Time morphine Allergy See Verified 02/26/18 08:22 Comments Past Medical History - Past Medical History Medical history: Reports: CHF, COPD, coronary artery disease, diabetes, GI bleed , hypertension, renal disease, other (Diverticular disease) Surgical history: Reports: angioplasty/stent, cholecystectomy, coronary bypass ( CABG), orthopedic, other (Left knee replacement) Psychiatric history: Reports: no psych history - Social History Smoking Status: Former smoker Smokeless Tobacco Status: No Alcohol use: Reports: none Drug use: Reports: none Physical Exam - General Limitations: no limitations General appearance: alert Course Vital Signs Pulse Rate 81 03/01/18 09:23 Respiratory Rate 18 03/01/18 09:23 Blood Pressure 202/92 03/01/18 09:23 O2 Sat by Pulse Oximetry 94 03/01/18 09:23 Temperature 98.3 F 03/01/18 09:49 Pulse Rate 76 03/01/18 10:44 Respiratory Rate 16 03/01/18 10:44 Blood Pressure 172/82 03/01/18 10:44 O2 Sat by Pulse Oximetry 96 03/01/18 10:44 Oxygen Delivery Oxygen Delivery Nasal Cannula Medical Decision Making - Lab Data Result diagrams: 03/01/18 09:49 03/01/18 09:49 Lab Results 03/01/18 03/01/18 03/01/18 Range/Units 09:49 09:49 09:49 WBC 11.8 H (4.3-11.1) K/mcL RBC 4.77 (4.19-5.50) M/mcL Hgb 13.9 D (12.9-16.9) g/dL Hct 41.7 (37.5-50.1) % MCV 87.4 (83.0-100.0) fL MCH 29.1 (28.0-33.3) pg MCHC 33.3 (31.6-35.5) g/dL RDW 13.5 (11.5-14.5) % Plt Count 293 (140-400) K/mcL MPV 10.9 (9.4-12.4) fL Immature Gran % 0.5 (0-4) % Seg Neutrophils % 76.3 % Lymphocytes % 14.6 % Monocytes % 6.4 % Eosinophils % 1.4 % Basophils % 0.8 % Neutrophils # 9.0 H (1.6-8.9) K/mcL Lymphocytes # 1.7 (0.6-4.6) K/mcL Monocytes # 0.8 (0.0-1.3) K/mcL Eosinophils # 0.2 (0.0-0.6) K/mcL Basophils # 0.1 (0.0-0.2) K/mcL PT 12.2 H (9.4-12.1) Seconds INR 1.1 APTT 37.0 H (26.0-36.0) Seconds Sodium 138 (136-145) mEq/L Potassium 3.3 L (3.5-5.1) mEq/L Chloride 101 (98-107) mEq/L Carbon Dioxide 26 (23-29) mEq/L BUN 15 (8-23) mg/dL Creatinine 1.16 (0.70-1.30) mg/dL Est GFR ( Amer) > 60 (> 60) Est GFR (Non-Af Amer) > 60 (> 60) BUN/Creatinine Ratio 13 (6-26) Glucose 269 H (70-105) mg/dL Calculated Osmolality 296 (280-300) Calcium 9.0 (8.6-10.3) mg/dL Troponin I < 0.03 (< 0.04) ng/mL Attestation Statement - Attestation Attestation: I examined this patient and my medical decision-making was reviewed with the Resident Physician. I agree with the documented findings, disposition and treatment plan as described except to the extent set forth below. 82 alfredo matos male presents to the ED with complaints of productive cough and states he was most recently admitted to the hospital for GI bleed, which have resolveld or improved. Patifred appears to have pnuemoina on CXR and will admit to medicine for HCAP
[2018-03-01] MEDS ORDERED: Potassium Chloride Elixir 20 MEQ/15 ML UDC PO ONE (11:39)
[2018-03-01] MEDS ORDERED: Naloxone 0.4 MG/ML INJ IVP PRN (11:41)
[2018-03-01] MEDS ORDERED: *HR* Dextrose 50 % in Water (Syg) 50 ML SYRINGE IVP PRN (11:46)
[2018-03-01] MEDS ORDERED: Dextrose Gel 15 GM/37.5 ML TUBE PO PRN ×2 (11:46)
[2018-03-01] MEDS ORDERED: D5% in Water 1,000 ML IVC PRN (11:46)
[2018-03-01] MEDS: 0.9 % Sodium Chloride 1,000 ML IVC SCH (12:40)
[2018-03-01] MEDS ORDERED: hydrALAZINE 25 MG TABLET PO PRN (12:47)
--- NOTE | 2018-03-01 14:02 | Internal Med History&Physical ---
Date of Encounter: 03/01/18 Time of Encounter: 14:00 Internal Medicine - H&P: HPI Chief complaint: Shortness of breath, fevers and chills History of present illness: Mr. Balderrama is a 82 year old male with omh of CHF, COPD, CAD, diabetes presenting with complaints of chest pain , shortness of breath and coughing that woke him up from sleep at 12 am today. He said he felt really weak and lethargic with coughing and subjective fevers and chills. He was recently discharged from the hospital with acute diverticulitis about 3 weeks ago. Chest xray in the ER showed patchy airspace opacities and he is being admitted for [facility] associated pneumonia. Past Med Surg Social Fam HX - Past Medical History Medical history: CHF, COPD, coronary artery disease, diabetes, GI bleed, hypertension, renal disease, other (Diverticular disease) Additional medical history: home oxygen prn (mostly at night - [facility]) Psychiatric history: no psych history - Past Surgical History Surgical History: angioplasty/stent, cholecystectomy, coronary bypass (CABG), orthopedic, other (Left knee replacement) Additional surgical history: left knee replacement, colonoscopy - Social History Smoking Status: Former smoker Smokeless Tobacco Status: No Alcohol use: none Drug use: none - Family History Brother Living Status: Still Living Hx Family Cancer: Yes (Lung) Hx Family Endocrine Disorder: Yes (DM) Father Living Status: Hx Family Cancer: Yes Mother Hx Family Cancer: Yes Internal Medicine - H&P: Meds Insulin DETEMIR [Levemir] 15 unit SQ BID 08/16/17 [History] Metoprolol [Lopressor] 50 mg PO BID 08/16/17 [History] Donepezil [Aricept] 5 mg PO HS 02/17/18 [History] Ergocalciferol (VITAMIN D2) [Vitamin D2] 50,000 unit PO QWEEK 02/17/18 [History] Lisinopril [Zestril] 40 mg PO DAILY 7 Days #7 tablet 02/19/18 [Rx] Omeprazole [PriLOSEC] 40 mg PO DAILY@0630 7 Days #7 capsule. 02/19/18 [Rx] Ondansetron ODT [Zofran ODT] 4 mg SL Q6HR PRN #8 tab.rapdis 02/26/18 [Rx] Promethazine [Phenergan] 25 mg PO Q6HR PRN #16 tablet 02/26/18 [Rx] metFORMIN [Glucophage] 500 mg PO BIDWM 02/26/18 [History] 3 Allergy/AdvReac Type Severity Reaction Status Date / Time morphine Allergy See Verified 02/26/18 08:22 Comments All Systems PM: A 10-system review of systems was performed and is negative for pertinent findings except as documented above in the HPI. - Constitutional Constitutional: fatigue, fever(s), lethargy - EENT Eyes: no change in vision, no discharge, no pain, no photophobia Ears: no ear discharge, no ear pain, no tinnitus Nose, mouth and throat: no dysphagia, no nasal discharge, no neck pain, no sore throat - Cardiovascular Cardiovascular ROS IM: chest pain - Respiratory Respiratory: no cough, no dyspnea, no wheezing, no excessive phlegm production - Gastrointestinal Gastrointestinal: no abdominal pain, no diarrhea, no hematemesis, no hematochezia, no melena, no nausea, no vomiting - Musculoskeletal Musculoskeletal ROS IM: no numbness, no tingling - Integumentary Integumentary IM: no rash, no unusual bruising - Neurological Neurological ROS: no confusion, no convulsions, no focal weakness, no numbness, no tingling, no tremor(s) - Hematologic/Lymphatic Hematologic/Lymphatic: no easy bruising - Constitutional Vitals: Temp Pulse Resp BP Pulse Ox 97.8 F 77 18 201/93 96 03/01/18 12:58 03/01/18 12:58 03/01/18 12:58 03/01/18 12:58 03/01/18 13:04 - Head Head exam: Present: atraumatic, normocephalic - Eye Eye exam: Present: PERRL, conjuntiva pink, sclera anicteric Pupils: Present: PERRL - Neck Neck exam general surgery: Present: supple, trachea midline. Absent: lymphadenopathy - Respiratory Respiratory exam: Present: CTAB. Absent: accessory muscle use, rales, rhonchi, wheezes - Cardiovascular Cardiovascular exam: Present: RRR, +S1, +S2. Absent: diastolic murmur, gallop, rubs, systolic murmur - GI/Abdominal GI/Abdominal exam: Present: normal bowel sounds, soft, no peritoneal signs. Absent: distended, tenderness - Extremities Exam Extremities exam: Present: warm, radial pulses palpable and symmetrical. Absent : calf tenderness, cyanotic, pedal edema - Neurological Exam Neurological exam: Present: CN II-XII intact, oriented X3, no focal deficits. Absent: pronater drift, facial droop, speech deficit - Skin Skin exam: Present: dry, intact Internal Med - H&P Results - Labs CBC & Chem 7: 03/01/18 09:49 03/01/18 09:49 - Assessment and plan (1) HCAP (healthcare-associated pneumonia) Current Visit: Yes Status: Acute Assessment and plan: Patient was recently in the hospital for divericulitis. CXR shows patchy airspace opacity . Start on vancomycin and levaquin. F/U blood cultures (2) Diabetes mellitus Current Visit: Yes Status: Acute Assessment and plan: Continue insulin Qualifiers: Diabetes mellitus type: type 2 Qualified Code(s): E11.9 - Type 2 diabetes mellitus without complications (3) Hypertension Current Visit: No Status: Chronic Assessment and plan: Continue home meds with lisinopril and beta ashok Qualifiers: Hypertension type: essential hypertension Qualified Code(s): I10 - Essential (primary) hypertension (4) DVT prophylaxis Current Visit: No Status: Acute Assessment and plan: Heparin sc - Time Spent With Patient Total time spent is greater than 50% in coordination of care (as documented) at patient's floor/unit and/or counseling patient:
[2018-03-01] MEDS ORDERED: amLODIPine 5 MG TABLET PO ONE (17:02)
[2018-03-01] MEDS: *HR* Heparin 5,000 UNIT/ML VIAL SQ SCH (17:11)
[2018-03-01] MEDS: Insulin LISPRO 300 UNITS/3 ML VIAL SQ SCH ×2 (17:13→21:19)
[2018-03-01] MEDS: Insulin DETEMIR 100 UNIT/ML X5UNITS SQ SCH ×3 (21:18→22:50)
[2018-03-01] MEDS ORDERED: Melatonin 3 MG TABLET PO PRN (23:56)
[2018-03-02] MEDS: 0.9 % Sodium Chloride 1,000 ML IVC SCH (00:12)
[2018-03-02] MEDS: Albuterol 2.5 MG/3 ML NEBULIZER IH PRN ×2 (00:48→11:52)
[2018-03-02 01:01] LABS: Basophils # 0.1 K/mcL (0.0-0.2); Basophils % 0.8 %; Eosinophils # 0.2 K/mcL (0.0-0.6); Eosinophils % 1.4 %; Hematocrit 38.3 % (37.5-50.1); Hemoglobin 12.7 g/dL (12.9-16.9); Immature Granulocytes % 0.3 % (0-4); Lymphocytes # 1.9 K/mcL (0.6-4.6); Lymphocytes % 15.4 %; Mean Corpuscular HGB Conc 33.2 g/dL (31.6-35.5); Mean Corpuscular Hemoglobin 28.9 pg (28.0-33.3); Mean Corpuscular Volume 87.2 fL (83.0-100.0); Mean Platelet Volume 11.1 fL (9.4-12.4); Monocytes # 0.8 K/mcL (0.0-1.3); Monocytes % 6.4 %; Neutrophils # 9.5 K/mcL (1.6-8.9); Platelet Count 296 K/mcL (140-400); Red Blood Count 4.39 M/mcL (4.19-5.50); Red Cell Distribution Width 13.5 % (11.5-14.5); Segmented Neutrophils % 75.7 %
[2018-03-02 01:21] LABS: BUN/Creatinine Ratio 13 (6-26); Blood Urea Nitrogen 15 mg/dL (8-23); Carbon Dioxide 23 mEq/L (23-29); Chloride 105 mEq/L (98-107); Glucose 265 mg/dL (70-105); Magnesium 1.6 mg/dL (1.6-2.6); Osmolality,Calculated 296 (280-300); Phosphorous 3.1 mg/dL (2.7-4.5); Potassium 3.6 mEq/L (3.5-5.1); Sodium 138 mEq/L (136-145); eGFR For African Americans > 60 (> 60); eGFR For Non-African Americans > 60 (> 60)
[2018-03-02] MEDS ORDERED: amLODIPine 5 MG TABLET PO ONE (02:06)
[2018-03-02] MEDS: *HR* Heparin 5,000 UNIT/ML VIAL SQ SCH ×2 (06:22→16:44)
[2018-03-02] MEDS: Insulin LISPRO 300 UNITS/3 ML VIAL SQ SCH ×4 (08:49→22:19)
[2018-03-02] MEDS: Insulin DETEMIR 100 UNIT/ML X5UNITS SQ SCH ×2 (08:49→22:32)
[2018-03-02] MEDS: Lisinopril 20 MG TABLET PO SCH (08:50)
[2018-03-02] MEDS ORDERED: Cefepime HCl 1,000 MG in 0.9 % Sodium Chloride Mini Bag 100 ML IVPB SCH (12:54)
[2018-03-02] MEDS: Cefepime HCl 2,000 MG in Water for inj. (sterile) 20 ML 20 ML IVP SCH ×2 (13:44→17:55)
--- NOTE | 2018-03-02 14:44 | Internal Med Progress Note ---
Date of Encounter: 03/02/18 Time of Encounter: 12:45 - Assessment and plan (1) HCAP (healthcare-associated pneumonia) Current Visit: Yes Status: Acute Assessment and plan: Mostly bacterial Strep PNA, Legionella - Neg Blood cx - no growth Cont empirical abx Cefepime + Levaquin received Vanco x 2 doses. so cancel Vanc for now (2) Acute and chronic respiratory failure with hypoxia Current Visit: Yes Status: Acute Assessment and plan: Due to PNA uses 2 lit O2 at home. currently on 3 lit cont close monitoring (3) Hypertension Current Visit: No Status: Chronic Assessment and plan: Fairly controlled continue home meds with lisinopril and beta ashok Added Hydralazine IV PRN Qualifiers: Hypertension type: essential hypertension Qualified Code(s): I10 - Essential (primary) hypertension (4) Diabetes mellitus Current Visit: Yes Status: Acute Assessment and plan: ADA diet + ISS Qualifiers: Diabetes mellitus type: type 2 Qualified Code(s): E11.9 - Type 2 diabetes mellitus without complications (5) COPD with acute exacerbation Current Visit: Yes Status: Acute (6) CKD (chronic kidney disease) stage 3, GFR 30-59 ml/min Current Visit: Yes Status: Chronic Assessment and plan: stable (7) DVT prophylaxis Current Visit: No Status: Acute Assessment and plan: Heparin sc - Time Spent With Patient Total time spent is greater than 50% in coordination of care (as documented) at patient's floor/unit and/or counseling patient: - Subjective Interval history: Mr. Balderrama is a 82 year old male with pmh of Diastolic CHF, COPD, CAD, and diabetes pt presented to ER with progressively worsening SOB and Cough with greenish expectoration.Chest x ray in the ER showed patchy airspace opacities. He was recently discharged from the hospital with acute diverticulitis about 3 weeks ago. Pt was admitted in the hospital and started him on broad spec abx. Pt is more alert, awake and O x 3. Feels little better today. Still has cough with greenish expectoration. - Constitutional Vitals: Temp Pulse Resp BP Pulse Ox 98.4 F 79 16 152/76 94 03/02/18 11:45 03/02/18 11:45 03/02/18 11:52 03/02/18 11:45 03/02/18 11:52 General appearance: Present: A&O X 3, no acute distress, answers questions appropriately - Head Head exam: Present: atraumatic, normal inspection - Neck Neck exam general surgery: Present: supple - Respiratory Respiratory exam: Present: decreased breath sounds, wheezes (mild). Absent: rales, respiratory distress, rhonchi - Cardiovascular Cardiovascular exam: Present: RRR, +S1, +S2. Absent: tachycardia - GI/Abdominal GI/Abdominal exam: Present: normal bowel sounds, soft. Absent: rebound, rigid, tenderness - Extremities Exam Extremities exam: Absent: calf tenderness, pedal edema, tenderness - Back Exam Back exam: Absent: CVA tenderness (L), CVA tenderness (R) - Neurological Exam Neurological exam: Present: alert, oriented X3 - Psychiatric Psychiatric exam: Present: normal affect, normal mood Internal Medicine: Result - Labs CBC & Chem 7: 03/02/18 00:22 03/02/18 00:22 Labs: Short CBC 03/02/18 Range/Units 00:22 WBC 12.5 H (4.3-11.1) K/mcL Hgb 12.7 L (12.9-16.9) g/dL Hct 38.3 (37.5-50.1) % Plt Count 296 (140-400) K/mcL Neutrophils # 9.5 H (1.6-8.9) K/mcL BMP 03/02/18 00:22 Sodium 138 Potassium 3.6 Chloride 105 Carbon Dioxide 23 BUN 15 Creatinine 1.13 Glucose 265 H Calcium 9.0 - ABG Interpretation ABG results: PT/INR, D-dimer PT 12.2 Seconds (9.4-12.1) H 03/01/18 09:49 Consult Discharge Plan - Plan
--- NOTE | 2018-03-02 18:56 | Electrocardiograph Report ---
[place] [id number] Test Date: 2018-03-01 Pat Name: Behzad Balderrama Department: 104 Room: 2A26 Gender: M Parent Coach: : 1935 Requested By: Aníbal Israel Order Number: [id number] Reading MD: Arnav Hurd Measurements Intervals [place] Rate: 87 P: 10 [place]: 180 QRS: -7 QRSD: 94 T: 6 QT: 403 QTc: 447 Interpretive Statements SINUS RHYTHM LEFT ATRIAL ENLARGEMENT INFERIOR MYOCARDIAL INFARCTION, PROBABLY OLD Electronically Signed On 03-02-2018 18:54:29 EDT by Arnav Hurd
[2018-03-03] MEDS: Albuterol 2.5 MG/3 ML NEBULIZER IH PRN ×2 (00:46→13:29)
[2018-03-03] MEDS: *HR* Heparin 5,000 UNIT/ML VIAL SQ SCH ×2 (08:19→16:32)
[2018-03-03] MEDS: Insulin LISPRO 300 UNITS/3 ML VIAL SQ SCH ×4 (08:26→23:32)
[2018-03-03] MEDS: Insulin DETEMIR 100 UNIT/ML X5UNITS SQ SCH ×2 (08:27→23:26)
[2018-03-03] MEDS: Lisinopril 20 MG TABLET PO SCH (08:27)
[2018-03-03] MEDS: Cefepime HCl 2,000 MG in Water for inj. (sterile) 20 ML 20 ML IVP SCH ×2 (08:36→16:51)
[2018-03-03] MEDS ORDERED: Levofloxacin 750 MG/150 ML 750 MG/150 ML BAG IVPB SCH ×2 (09:00→12:00)
--- NOTE | 2018-03-03 12:07 | Internal Med Progress Note ---
Date of Encounter: 03/03/18 Time of Encounter: 10:30 - Assessment and plan (1) HCAP (healthcare-associated pneumonia) Current Visit: Yes Status: Acute Assessment and plan: Mostly bacterial Strep PNA, Legionella - Neg Blood cx - no growth so far Cont empirical abx Cefepime + Levaquin received Vanco x 2 doses. (2) Acute and chronic respiratory failure with hypoxia Current Visit: Yes Status: Acute Assessment and plan: Due to PNA uses 2 lit O2 at home. currently on 2.5 lit cont close monitoring started him on low dose PO steroids since pt still has moderate wheezing (3) Hypertension Current Visit: No Status: Chronic Assessment and plan: Fairly controlled continue home meds with lisinopril and beta ashok also started him on Norvasc Cont Hydralazine IV PRN Qualifiers: Hypertension type: essential hypertension Qualified Code(s): I10 - Essential (primary) hypertension (4) Diabetes mellitus Current Visit: Yes Status: Acute Assessment and plan: ADA diet + ISS Qualifiers: Diabetes mellitus type: type 2 Qualified Code(s): E11.9 - Type 2 diabetes mellitus without complications (5) COPD with acute exacerbation Current Visit: Yes Status: Acute Assessment and plan: Started him on low dose steroids cont Duoneb + o2 (6) CKD (chronic kidney disease) stage 3, GFR 30-59 ml/min Current Visit: Yes Status: Chronic Assessment and plan: stable (7) DVT prophylaxis Current Visit: No Status: Acute Assessment and plan: Heparin sc - Time Spent With Patient Total time spent is greater than 50% in coordination of care (as documented) at patient's floor/unit and/or counseling patient: - Subjective Interval history: Mr. Balderrama is a 82 year old male with pmh of Diastolic CHF, COPD, CAD, and diabetes pt presented to ER with progressively worsening SOB and Cough with greenish expectoration.Chest x ray in the ER showed patchy airspace opacities. He was recently discharged from the hospital with acute diverticulitis about 3 weeks ago. Pt was admitted in the hospital and started him on broad spec abx. Pt is more alert, awake and O x 3. Feels little better today. Still has cough with greenish expectoration. Denied any CP. No events over night - Constitutional Vitals: Temp Pulse Resp BP Pulse Ox 98.4 F 85 18 168/81 95 03/03/18 08:01 03/03/18 08:01 03/03/18 08:01 03/03/18 10:55 03/03/18 08:01 General appearance: Present: A&O X 3, no acute distress, answers questions appropriately - Head Head exam: Present: atraumatic, normal inspection - Neck Neck exam general surgery: Present: supple - Respiratory Respiratory exam: Present: decreased breath sounds, wheezes (moderate). Absent : rales, respiratory distress, rhonchi - Cardiovascular Cardiovascular exam: Present: RRR, +S1, +S2. Absent: tachycardia - GI/Abdominal GI/Abdominal exam: Present: normal bowel sounds, soft. Absent: rebound, rigid, tenderness - Extremities Exam Extremities exam: Absent: calf tenderness, pedal edema, tenderness - Back Exam Back exam: Absent: CVA tenderness (L), CVA tenderness (R) - Neurological Exam Neurological exam: Present: alert, oriented X3 - Psychiatric Psychiatric exam: Present: normal affect, normal mood Internal Medicine: Result - Labs CBC & Chem 7: 03/02/18 00:22 03/02/18 00:22 - ABG Interpretation ABG results: PT/INR, D-dimer PT 12.2 Seconds (9.4-12.1) H 03/01/18 09:49 Consult Discharge Plan - Plan Referrals: Pawel Nolen DO [Primary Care Provider] -
[2018-03-03] MEDS: predniSONE 20 MG TABLET PO SCH ×2 (12:18→16:51)
[2018-03-03] MEDS: amLODIPine 5 MG TABLET PO SCH (13:16)
[2018-03-04] MEDS ORDERED: Insulin LISPRO 300 UNITS/3 ML VIAL SQ ONE (02:30)
[2018-03-04] MEDS ORDERED: Insulin LISPRO 300 UNITS/3 ML VIAL SQ SCH ×2 (02:40→02:42)
[2018-03-04 04:42] LABS: Basophils % 0.2 %; Hematocrit 35.7 % (37.5-50.1); Hemoglobin 11.6 g/dL (12.9-16.9); Immature Granulocytes % 0.4 % (0-4); Lymphocytes # 0.7 K/mcL (0.6-4.6); Lymphocytes % 6.1 %; Mean Corpuscular HGB Conc 32.5 g/dL (31.6-35.5); Mean Corpuscular Hemoglobin 28.4 pg (28.0-33.3); Mean Corpuscular Volume 87.5 fL (83.0-100.0); Mean Platelet Volume 11.2 fL (9.4-12.4); Monocytes # 0.3 K/mcL (0.0-1.3); Monocytes % 2.9 %; Neutrophils # 10.5 K/mcL (1.6-8.9); Platelet Count 282 K/mcL (140-400); Red Blood Count 4.08 M/mcL (4.19-5.50); Red Cell Distribution Width 13.6 % (11.5-14.5); Segmented Neutrophils % 90.4 %
[2018-03-04] MEDS: Cefepime HCl 2,000 MG in Water for inj. (sterile) 20 ML 20 ML IVP SCH (06:54)
[2018-03-04 07:39] VITALS: BP 156/81
[2018-03-04] MEDS: *HR* Heparin 5,000 UNIT/ML VIAL SQ SCH (07:47)
[2018-03-04] MEDS: amLODIPine 5 MG TABLET PO SCH (07:51)
[2018-03-04] MEDS: Lisinopril 20 MG TABLET PO SCH (07:51)
[2018-03-04] MEDS: Insulin DETEMIR 100 UNIT/ML X5UNITS SQ SCH (07:52)
[2018-03-04] MEDS: predniSONE 20 MG TABLET PO SCH (07:52)
--- NOTE | 2018-03-04 09:34 | Discharge Summary ---
- NOTES TO OUTPATIENT PROVIDER Notes to Outpatient Provider: f/u with PCP in one week. You do have GERD, which causing recurrent aspiration pneumonia, so please continue taking Protonix. Date of Encounter: 03/04/18 Time of Encounter: 09:00 - Discharge Diagnosis (1) HCAP (healthcare-associated pneumonia) Priority: Primary Status: Acute (2) Acute and chronic respiratory failure with hypoxia Priority: Primary Status: Acute (3) Hypertension Priority: Secondary Status: Chronic Qualifiers: Hypertension type: essential hypertension Qualified Code(s): I10 - Essential (primary) hypertension (4) Diabetes mellitus Priority: Secondary Status: Acute Qualifiers: Diabetes mellitus type: type 2 Qualified Code(s): E11.9 - Type 2 diabetes mellitus without complications (5) COPD with acute exacerbation Priority: Secondary Status: Acute (6) CKD (chronic kidney disease) stage 3, GFR 30-59 ml/min Priority: Secondary Status: Chronic (7) DVT prophylaxis Priority: Secondary Status: Acute Hospital course: Mr. Balderrama is a 82 year old male with pmh of Diastolic CHF, COPD, CAD, and diabetes pt presented to ER with progressively worsening SOB and Cough with greenish expectoration.Chest x ray in the ER showed patchy airspace opacities. He was recently discharged from the hospital with acute diverticulitis about 3 weeks ago. Pt was admitted in the hospital and started him on broad spec abx Cefepime + Levaquin. His symptoms started improving slowly. He was placed on PO systemic steroids too. He feels like he is back to baseline today and he is breathing comfortably on 2 lit O2. So will d.c him home in stable condition with pO abx, INH steroids and Albuterol INH. He does have GERD, which might causing aspiration pneumonia, so counseled the pt about GERD instructions and recommend to take PPI. - Time Spent with Patient Total time spent providing and/or coordinating discharge services: - Discharge Medications Home Medications: Insulin DETEMIR [Levemir] 18 unit SQ BID 08/16/17 [History] Metoprolol [Lopressor] 50 mg PO BID 08/16/17 [History] Donepezil [Aricept] 5 mg PO HS 02/17/18 [History] Ergocalciferol (VITAMIN D2) [Vitamin D2] 50,000 unit PO QWEEK 02/17/18 [History] Lisinopril [Zestril] 40 mg PO DAILY 7 Days #7 tablet 02/19/18 [Rx] Omeprazole [PriLOSEC] 40 mg PO DAILY@0630 7 Days #7 capsule. 02/19/18 [Rx] Ondansetron ODT [Zofran ODT] 4 mg SL Q6HR PRN #8 tab.rapdis 02/26/18 [Rx] Promethazine [Phenergan] 25 mg PO Q6HR PRN #16 tablet 02/26/18 [Rx] metFORMIN [Glucophage] 500 mg PO BIDWM 02/26/18 [History] Albuterol Sulfate [Albuterol Inhaler] 2 puff IH Q6HR PRN #1 hfa.aer.[id number] 03/04/18 [Rx] Budesonide [Pulmicort Flexhaler 90mcg] 2 puff IH BID #1 aer.[email or web address] 03/04/18 [Rx] amLODIPine [Norvasc] 10 mg PO DAILY #30 tablet 03/04/18 [Rx] levoFLOXacin [Levaquin] 500 mg PO DAILY #4 tablet 03/04/18 [Rx] Allergies/Adverse Reactions: 3 Allergy/AdvReac Type Severity Reaction Status Date / Time morphine Allergy See Verified 02/26/18 08:22 Comments Date of admission: 03/01/18 11:41 Primary care physician: Pawel Nolen DO Consults: 03/01/18 12:12 Consult to Nutrition [CONS] Routine Comment: Consulting Provider: NUTRITION Reason for Dietary Consult: MST Score - Constitutional Vitals: Temp Pulse Resp BP Pulse Ox 97.7 F 83 19 156/81 95 03/04/18 07:34 03/04/18 07:34 03/04/18 07:34 03/04/18 07:34 03/04/18 07:34 General appearance: Present: A&O X 3, no acute distress, answers questions appropriately - Head Head exam: Present: atraumatic, normal inspection - Respiratory Respiratory exam: Present: decreased breath sounds. Absent: rales, respiratory distress, rhonchi, wheezes - Cardiovascular Cardiovascular exam: Present: RRR, +S1, +S2. Absent: tachycardia - GI/Abdominal GI/Abdominal exam: Present: normal bowel sounds, soft. Absent: rebound, rigid, tenderness - Extremities Exam Extremities exam: Absent: calf tenderness, pedal edema, tenderness - Back Exam Back exam: Absent: CVA tenderness (L), CVA tenderness (R) - Neurological Exam Neurological exam: Present: alert, oriented X3 - Patient Status Disposition: Home, Self-Care Condition: Good Overall status at discharge: patient is back to baseline - Discharge Instructions Instructions: Gastroesophageal Reflux Disease (GEN), Aspiration Pneumonia (GEN) Follow Up With: Pawel Nolen DO [Primary Care Provider] - Forms: ED Satisfaction Letter - Diet and Activity Activity: increase activity as tolerated, wear oxygen at all times Diet: low salt diet
== END 2018-03-04 10:38 | disposition home or self-care (01) | DRG 193 ==
LOC: 3NENU 09:23 → EMEROO 09:23 → 3NENU 11:48 → 2ANU 03-02 11:05
PROVIDERS: ADMIT Student in an Organized Health Care Education/Training Program; ATTEND Student in an Organized Health Care Education/Training Program